=== PATIENT | male | born 1960 | race American Indian/Alaskan Native ===

== ENCOUNTER → 2023-10-08 12:22 | Outpatient (CLI) | payer MEDICARE, OTHER, SELFPAY | PROVIDERS: Visit Provider Physician Assistant | DX: E11.621 Type 2 diabetes mellitus with foot ulcer (principal); L97.509 Non-pressure chronic ulcer of other part of unspecified foot with unspecified severity | CPT/HCPCS: 87070; 87075; 87205 ==

== ENCOUNTER → 2023-10-08 12:38 | Outpatient (CLI) | payer MEDICARE, OTHER, SELFPAY ==
--- NOTE | 2023-10-08 12:42 | DI.RAD.S_ITS ---
PROCEDURE: XR TOE RT MIN 2V INDICATIONS: deep wound to base of great toe TECHNIQUE: 3 views of the 1st toe(s) acquired. COMPARISON: None. FINDINGS: Bones: No fractures or dislocations. No suspicious bony lesions. No bony erosion. Soft tissues: No suspicious soft tissue densities. IMPRESSION: Although no bony erosions are identified, plain film radiography is relatively insensitive in the acute phases of osteomyelitis and may not demonstrate radiographic changes for 15 days. If acute osteomyelitis is of clinical concern, nuclear medicine regional bone scan or MRI is recommended. Dictated by: Mir Tan M.D. on 10/08/2023 at 15:21 Approved by: Mir Tan M.D. on 10/08/2023 at 15:22
[2023-10-08 14:03] LABS: Add Manual Diff / Slide Review NO; Basophils Absolute Auto 0 /uL (0-100); Basophils Percent Auto 0.4 % (0-2); Eosinophils Absolute Auto 0 /uL (0-450); Eosinophils Percent Auto 0.3 % (2-4); Hemoglobin 14.1 g/dL (13.5-17.5); Hemoglobin A1C% w Est Avg Glu 10.9 % (4.0-6.0); Lymphocytes Absolute Auto 2100 /uL (1100-4500); Lymphocytes Percent Auto 17.4 % (25-40); Mean Corpuscular HGB Conc 33.5 % (30-36); Mean Corpuscular Hemoglobin 29.7 PG (26-34); Mean Corpuscular Volume 88.6 fL (80-100); Monocytes Absolute Auto 1000 /uL (0-900); Monocytes Percent Auto 8.4 % (3-14); Neutrophils Absolute Auto 8800 /uL (1500-7000); Neutrophils Percent Auto 73.5 % (50-75); Platelet Count 353 X10^3/uL (150-400); Red Blood Cell Count 4.74 X10^6/uL (4.5-5.9); Red Cell Distribution Width 12.6 % (11.6-14.8)
[2023-10-08 14:23] LABS: Alanine Aminotransferase 30 IU/L (<50); Albumin 4.2 g/dL (3.5-5.0); Albumin Globulin Ratio 1.5 (1.0-2.8); Alkaline Phosphatase 111 U/L (38-126); Aspartate Aminotransferase 24 IU/L (17-59); BUN Creatinine Ratio 47.9 (6-22); Bilirubin Total 0.4 mg/dL (0.2-1.3); Blood Urea Nitrogen 23 mg/dL (9-20); Calcium 9.5 mg/dL (8.4-10.2); Carbon Dioxide 24 mmol/L (22-32); Chloride 104 mmol/L (98-107); Estimated Glomerular Filt Rate > 60 mL/min (>60); Globulin 2.8 g/dL (1.7-4.1); Glucose 313 mg/dL (80-110); HEMOLYSIS < 15 (0-50); Potassium 4.8 mmol/L (3.4-5.1); Sodium 136 mmol/L (137-145)
== END ==
PROVIDERS: Referring Provider Physician Assistant; Visit Provider Physician Assistant
DX: E11.621 Type 2 diabetes mellitus with foot ulcer (principal); L97.509 Non-pressure chronic ulcer of other part of unspecified foot with unspecified severity
CPT/HCPCS: 36415; 73660; 80053; 83036; 85025; 87070; 87075; 87077; 87186; 87205

== ENCOUNTER → 2023-10-16 12:41 | Outpatient (CLI) | payer MEDICARE, OTHER, SELFPAY | PROVIDERS: Referring Provider Physician Assistant; Visit Provider Physician Assistant | DX: E11.621 Type 2 diabetes mellitus with foot ulcer (principal); L97.512 Non-pressure chronic ulcer of other part of right foot with fat layer exposed; L97.522 Non-pressure chronic ulcer of other part of left foot with fat layer exposed; L84 Corns and callosities; R60.0 Localized edema; L53.9 Erythematous condition, unspecified; F17.210 Nicotine dependence, cigarettes, uncomplicated; L08.89 Other specified local infections of the skin and subcutaneous tissue | CPT/HCPCS: 11042; 87070; 87077; 87186; 87205; 99204; 99214 ==

== ENCOUNTER 2023-10-16 15:10 | Inpatient (IN) | payer MEDICARE, OTHER, SELFPAY ==
[2023-10-16 15:12] VITALS: BP 118/83; PULSE 96; RESP 18; TEMP 36.9; O2SAT 94; BMI 26.9
--- NOTE | 2023-10-16 15:28 | ED_ITS ---
HPI - Skin/Abscess/Foreign Bdy <Melida Roberts PA-C - Last Filed: 10/16/23 18:11> General Chief complaint: Skin/Abscess/Foreign Body Stated complaint: feet infected/rt foot open wound Time Seen by Provider: 10/16/23 15:18 Source: patient and other Mode of arrival: Ambulatory Limitations: no limitations History of Present Illness HPI narrative: 63-year-old male presents today referred by the wound care clinic for a worsening right great toe wound. He was seen October 08, 2023 and our walk-in clinic wound culture grew Enterobacter cloaca complex with resistance to Keflex which he was prescribed. He was switched to Bactrim but apparently never started this new medication. Initially the wound was located on the plantar surface of his right great toe, following self removal of a callus by using a knife ?sterilized with a [employer] sales consultant?, he is done wound care with hydrogen peroxide, saltwater and rubbing alcohol. He has a new wound on the medial aspect as well. He is denying any loss of sensation or pain per se. He is denying any fever or changes in overall health, but did endorse some sweats at night. Currently he has no PCP, no glucometer at home and currently residing in a hotel with the help from the hotel sales training representative while his house is being built as part of the [facility] [place]. He is wearing bilateral orthopedic shoes with offloading on the heel. Review of his records reveal labs 10/08/23: white blood cell count of 12.0 with neutrophils 8800. Chemistry was normal with creatinine of 0.48 BUN 23 and his A1c was 10.9. All other systems reviewed and are negative. No known drug allergies. Related Data Home Medications Medication Instructions Recorded Confirmed clonazepam 1 mg tablet 1 mg PO DAILY PRN Anxiety 10/08/23 10/16/23 Allergies Allergy/AdvReac Type Severity Reaction Status Date / Time No Known Drug Allergies Allergy Verified 10/08/23 11:40 Review of Systems <Melida Roberts PA-C - Last Filed: 10/16/23 18:11> Review of Systems Narrative: All other systems reviewed and are negative. Patient History <Melida Roberts PA-C - Last Filed: 10/16/23 18:11> Medical History (Updated 10/16/23 @ 18:49 by Lincoln Maguire DO) Diabetes type 2, uncontrolled Diabetic foot ulcer Social History (Updated 10/16/23 @ 18:49 by Lincoln Maguire DO) household members: none Smoking Status: Current every day smoker alcohol intake: former substance use type: does not use Smoking Status: Current every day smoker Exam <Melida Roberts PA-C - Last Filed: 10/16/23 18:11> Initial Vital Signs Initial Vital Signs: Vital Signs Temperature 98.5 F 10/16/23 15:12 Pulse Rate 96 H 10/16/23 15:12 Respiratory Rate 18 10/16/23 15:12 Blood Pressure 118/83 10/16/23 15:12 Pulse Oximetry 94 10/16/23 15:12 Oxygen Delivery Method Room Air 10/16/23 15:12 Vital signs reviewed and are normal. Const Other: Smiling, seated in the gurney no distress. Eyes Conjunctivae: conjunctivae normal Sclera: sclerae normal Resp Other: Clear to auscultation throughout. Cardio Other: Regular rate and rhythm. Skin Other: Normal color, turgor, temperature except for his foot please see extremity. Extrem Right lower extremity: lower leg Details: erythema, tenderness, localized swelling and warmth; no pitting edema Other: Right great toe has 2 wounds, there is a round approximately 2 cm wound on the plantar aspect no deeper structure seen, relatively dry. Minimal tenderness without guarding. Second wound in the form of a bulla with several other smaller soft blisters on the medial aspect also measuring 2 cm round 1 cm height it is fluid filled, without guarding. Both wounds are reddened, the leg itself is warm not hot to the touch but it is reddened with some edema about the ankle up to the mid lower leg. No pitting. He has no calf tenderness. No popliteal swelling or tenderness. He has full range of motion to the ankle, he is able to move all of his toes. Pulses are present at the DP and PT locations. No inguinal adenopathy. <Dunia Damico DO - Last Filed: 10/17/23 07:37> Initial Vital Signs Initial Vital Signs: Vital Signs Temperature 98.5 F 10/16/23 15:12 Pulse Rate 96 H 10/16/23 15:12 Respiratory Rate 18 10/16/23 15:12 Blood Pressure 118/83 10/16/23 15:12 Pulse Oximetry 94 10/16/23 15:12 Oxygen Delivery Method Room Air 10/16/23 15:12 Course <Melida Roberts PA-C - Last Filed: 10/16/23 18:11> Course Course Narrative: Records reviewed, I spoke with wound care provider who believes this wound tracts to the new bullous lesion. I did not needle it or attempt to drain it, had our attending Dr. Damico examine the patient as well. Consultation with Dr. Neal via Orthopedics who advised inpatient admission at this point for cellulitis and his underlying diabetes, recommends an inpatient MRI and if it does show osteomyelitis he would be more than happy to get involved as the patient would ultimately require bone biopsy. Additional Information: Spoke with Dr. Rios our hospitalist who agreed to admit this patient. Orders Ordered: ED Orders 10/17/23 05:53 Complete Blood Count AUTO DIFF DAILY Comprehensive Metabolic Panel DAILY Magnesium DAILY PTT Partial Thromboplastin Romeo DAILY Prothrombin Time INR DAILY 10/18/23 05:00 Complete Blood Count AUTO DIFF DAILY Comprehensive Metabolic Panel DAILY Magnesium DAILY 10/19/23 05:00 Complete Blood Count AUTO DIFF DAILY Comprehensive Metabolic Panel DAILY Magnesium DAILY Acetaminophen (Acetaminophen 325 Mg Tablet) 650 mg PO Q6H PRN PRN Reason: Fever/Mild Pain (1-3) Hydrocodone Bitart/Acetaminophen (Hydrocodone/Acet 5/325 Tablet) 1 tab PO Q4HR PRN PRN Reason: Pain, Moderate (4-6) Last Admin: 10/17/23 05:54 Dose: 1 tab Documented By: VOLODYMYR Clonazepam (Clonazepam 0.5 Mg Tablet) 1 mg PO DAILY PRN PRN Reason: Anxiety Last Admin: 10/16/23 22:58 Dose: 1 mg Documented By: VOLODYMYR Enoxaparin Sodium (Enoxaparin 40 Mg/0.4 Ml Syringe) 40 mg SUBCUT DAILY [facility] Dextrose (D10w) 100 mls @ 999 mls/hr IV PRN PRN PRN Reason: Hypoglycemia Vancomycin HCl (Vancomycin) 1,250 mg in 250 mls @ 250 mls/hr IV Q8H [facility] Last Infusion: 10/17/23 05:53 Dose: Infused Documented By: Admin: 10/17/23 02:42 Dose: 250 mls/hr Documented By: VOLODYMYR Cefepime HCl 2 gm/ Sodium (Chloride) 100 mls @ 200 mls/hr IV Q12H [facility] Last Infusion: 10/17/23 02:40 Dose: Infused Documented By: Admin: 10/17/23 01:34 Dose: 200 mls/hr Documented By: VOLODYMYR Insulin Glargine (Insulin Glargine 100 Unit/Ml 3ml Pen) 10 unit SUBCUT 2100 [facility] Last Admin: 10/16/23 20:28 Dose: 10 unit Documented By: VOLODYMYR Co-signed By: RC Insulin Human Lispro (Insulin Lispro 100 Unit/Ml 3ml Vial) 0 unit SUBCUT ACHS [facility]; Protocol Last Admin: 10/16/23 20:31 Dose: 3 unit Documented By: VOLODYMYR Co-signed By: RC Naloxone HCl (Naloxone 0.4 Mg/Ml Vial) 0.2 mg IV Q2MIN PRN PRN Reason: Opiate Reversal Ondansetron HCl (Ondansetron 4 Mg Odt) 4 mg PO Q8HR PRN PRN Reason: Nausea And Vomiting Sodium Chloride (Sodium Chloride 0.9% Flush) 10 ml IV BID [facility] Trazodone HCl (Trazodone 50 Mg Tablet) 50 mg PO BEDTIME PRN PRN Reason: insomnia Last Admin: 10/16/23 20:08 Dose: 50 mg Documented By: VOLODYMYR Vancomycin HCl (Vancomycin Trough) 1 request MIS 1830 ONE Stop: 10/17/23 18:31 Vancomycin HCl (Vancomycin Peak) 1 request MIS 0 ONE Stop: 10/17/23 21:31 Discontinued Medications Cefepime HCl 2 gm/ Sodium (Chloride) 100 mls @ 200 mls/hr IV NOW ONE Stop: 10/16/23 15:53 Last Infusion: 10/16/23 17:11 Dose: Infused Documented By: Admin: 10/16/23 16:36 Dose: 200 mls/hr Documented By: SEN Cefepime HCl 2 gm/ Sodium (Chloride) 100 mls @ 200 mls/hr IV Q12H [facility] Vancomycin HCl/Dextrose (Vancomycin) 2,000 mg in 400 mls @ 200 mls/hr IV NOW ONE Stop: 10/16/23 21:14 Last Infusion: 10/17/23 02:41 Dose: Infused Documented By: Admin: 10/16/23 20:08 Dose: 200 mls/hr Documented By: VOLODYMYR Insulin Human Lispro (Insulin Lispro 100 Unit/Ml 3ml Vial) 0 unit SUBCUT NOW ONE; Protocol Stop: 10/17/23 04:16 Last Admin: 10/17/23 04:28 Dose: 3 unit Documented By: VOLODYMYR Co-signed By: RC Vancomycin HCl (Vancomycin Per Pharmacy) 1 request MISC NOW PRN PRN Reason: foot ulcer Reevaluation(s) Reevaluation #1: Resting comfortably, tolerated this 1st course of IV antibiotics. Consultations Consultation #1: Orthopedic consult with Dr. Sonal Neal at 4:50 p.m. recommended inpatient management of his diabetes mellitus and cellulitis with inpatient MRI, if osteomyelitis ultimately bone biopsy would be indicated. Targeted antimicrobial management and wound care. Consultation #2: Hospitalist Dr. Maguire at 1745 hrs. He accepts this patient for hospital admission under observation. Vital Signs Vital signs: Vital Signs - 8 hr 10/16/23 15:12 Temperature 98.5 F Pulse Rate 96 H Respiratory Rate 18 Blood Pressure 118/83 Pulse Oximetry 94 Oxygen Delivery Method Room Air <Dunia Damico DO - Last Filed: 10/17/23 07:37> Orders Ordered: ED Orders 10/17/23 05:53 Complete Blood Count AUTO DIFF DAILY Comprehensive Metabolic Panel DAILY Magnesium DAILY PTT Partial Thromboplastin Romeo DAILY Prothrombin Time INR DAILY 10/18/23 05:00 Complete Blood Count AUTO DIFF DAILY Comprehensive Metabolic Panel DAILY Magnesium DAILY 10/19/23 05:00 Complete Blood Count AUTO DIFF DAILY Comprehensive Metabolic Panel DAILY Magnesium DAILY Acetaminophen (Acetaminophen 325 Mg Tablet) 650 mg PO Q6H PRN PRN Reason: Fever/Mild Pain (1-3) Hydrocodone Bitart/Acetaminophen (Hydrocodone/Acet 5/325 Tablet) 1 tab PO Q4HR PRN PRN Reason: Pain, Moderate (4-6) Last Admin: 10/17/23 05:54 Dose: 1 tab Documented By: VOLODYMYR Clonazepam (Clonazepam 0.5 Mg Tablet) 1 mg PO DAILY PRN PRN Reason: Anxiety Last Admin: 10/16/23 22:58 Dose: 1 mg Documented By: VOLODYMYR Enoxaparin Sodium (Enoxaparin 40 Mg/0.4 Ml Syringe) 40 mg SUBCUT DAILY [facility] Dextrose (D10w) 100 mls @ 999 mls/hr IV PRN PRN PRN Reason: Hypoglycemia Vancomycin HCl (Vancomycin) 1,250 mg in 250 mls @ 250 mls/hr IV Q8H [facility] Last Infusion: 10/17/23 05:53 Dose: Infused Documented By: Admin: 10/17/23 02:42 Dose: 250 mls/hr Documented By: VOLODYMYR Cefepime HCl 2 gm/ Sodium (Chloride) 100 mls @ 200 mls/hr IV Q12H [facility] Last Infusion: 10/17/23 02:40 Dose: Infused Documented By: Admin: 10/17/23 01:34 Dose: 200 mls/hr Documented By: VOLODYMYR Insulin Glargine (Insulin Glargine 100 Unit/Ml 3ml Pen) 10 unit SUBCUT 2100 [facility] Last Admin: 10/16/23 20:28 Dose: 10 unit Documented By: VOLODYMYR Co-signed By: RC Insulin Human Lispro (Insulin Lispro 100 Unit/Ml 3ml Vial) 0 unit SUBCUT ACHS [facility]; Protocol Last Admin: 10/16/23 20:31 Dose: 3 unit Documented By: VOLODYMYR Co-signed By: RC Naloxone HCl (Naloxone 0.4 Mg/Ml Vial) 0.2 mg IV Q2MIN PRN PRN Reason: Opiate Reversal Ondansetron HCl (Ondansetron 4 Mg Odt) 4 mg PO Q8HR PRN PRN Reason: Nausea And Vomiting Sodium Chloride (Sodium Chloride 0.9% Flush) 10 ml IV BID [facility] Trazodone HCl (Trazodone 50 Mg Tablet) 50 mg PO BEDTIME PRN PRN Reason: insomnia Last Admin: 10/16/23 20:08 Dose: 50 mg Documented By: VOLODYMYR Vancomycin HCl (Vancomycin Trough) 1 request MIS 1830 ONE Stop: 10/17/23 18:31 Vancomycin HCl (Vancomycin Peak) 1 request MIS 0 ONE Stop: 10/17/23 21:31 Discontinued Medications Cefepime HCl 2 gm/ Sodium (Chloride) 100 mls @ 200 mls/hr IV NOW ONE Stop: 10/16/23 15:53 Last Infusion: 10/16/23 17:11 Dose: Infused Documented By: Admin: 10/16/23 16:36 Dose: 200 mls/hr Documented By: SEN Cefepime HCl 2 gm/ Sodium (Chloride) 100 mls @ 200 mls/hr IV Q12H [facility] Vancomycin HCl/Dextrose (Vancomycin) 2,000 mg in 400 mls @ 200 mls/hr IV NOW ONE Stop: 10/16/23 21:14 Last Infusion: 10/17/23 02:41 Dose: Infused Documented By: Admin: 10/16/23 20:08 Dose: 200 mls/hr Documented By: VOLODYMYR Insulin Human Lispro (Insulin Lispro 100 Unit/Ml 3ml Vial) 0 unit SUBCUT NOW ONE; Protocol Stop: 10/17/23 04:16 Last Admin: 10/17/23 04:28 Dose: 3 unit Documented By: VOLODYMYR Co-signed By: RC Vancomycin HCl (Vancomycin Per Pharmacy) 1 request MISC NOW PRN PRN Reason: foot ulcer Vital Signs Vital signs: Vital Signs - 8 hr 10/16/23 15:12 Temperature 98.5 F Pulse Rate 96 H Respiratory Rate 18 Blood Pressure 118/83 Pulse Oximetry 94 Oxygen Delivery Method Room Air MDM - Skin/Abscess/Foreign Bdy <Melida Roberts PA-C - Last Filed: 10/16/23 18:11> Medical Records Attestation: I reviewed the patient's medical records. Lab Data Lab results narrative: CBC, CMP, Lactate, ESR, CRP, blood cultures. Previous wound culture dated October 08, 2023 grew Enterobacter cloacae complex showing good sensitivity to cefepime. 10/17/23 05:53 10/17/23 05:53 Labs: Lab Results 10/16/23 Range/Units 15:32 WBC 11.3 H (4.5-11.0) X10^3/uL RBC 4.74 (4.5-5.9) X10^6/uL Hgb 13.9 (13.5-17.5) g/dL Hct 41.0 (41-53) % MCV 86.4 (80-100) fL MCH 29.4 (26-34) PG MCHC 34.0 (30-36) % RDW 12.5 (11.6-14.8) % Plt Count 417 H (150-400) X10^3/uL Neut % (Auto) 72.0 (50-75) % Lymph % (Auto) 17.9 L (25-40) % Grant % (Auto) 8.8 (3-14) % Eos % (Auto) 0.4 L (2-4) % Baso % (Auto) 0.9 (0-2) % Neut # (Auto) 8100 H (9095-1359) /uL Lymph # (Auto) 2000 (8532-7387) /uL Grant # (Auto) 1000 H (0-900) /uL Eos # (Auto) 0 (0-450) /uL Baso # (Auto) 100 (0-100) /uL ESR 56 H (0-15) MM/HR Sodium 136 L (137-145) mmol/L Potassium 4.4 (3.4-5.1) mmol/L Chloride 103 (98-107) mmol/L Carbon Dioxide 28 (22-32) mmol/L BUN 29 H (9-20) mg/dL Creatinine 0.46 L (0.66-1.25) mg/dL Estimated GFR > 60 (>60) mL/min BUN/Creatinine Ratio 63.0 H (6-22) Glucose 357 H (80-110) mg/dL Lactate 0.9 (0.7-2.1) mmol/L Calcium 9.2 (8.4-10.2) mg/dL Total Bilirubin 0.3 (0.2-1.3) mg/dL AST 25 (17-59) IU/L ALT 32 (<50) IU/L Alkaline Phosphatase 133 H (38-126) U/L C-Reactive Protein 6.9 H (<1.0) mg/dL Total Protein 7.4 (6.3-8.2) g/dL Albumin 4.1 (3.5-5.0) g/dL Globulin 3.3 (1.7-4.1) g/dL Albumin/Globulin Ratio 1.2 (1.0-2.8) Imaging Data Extremity x-ray #1: My Impression: Deferred to radiologist reading. Radiologist's Impression: PROCEDURE:??XR?TOE?RT?MIN?2V INDICATIONS:??DM?toe?wound,?r/o?osteo?previous?10/08/23 TECHNIQUE:??3?views?of?the?1st?toe(s)?acquired.?? COMPARISON:[facility],?[facility],?XR?TOE?RT?MIN?2V,?10/08/2023,?13:02. FINDINGS:?? Bones:??No?fractures?or?dislocations.??No?suspicious?bony?lesions.?? Soft?tissues:? ?No?suspicious?soft?tissue?densities.??Inflammatory?changes?noted?over?the?great ?toe?distally IMPRESSION:?? No?acute?bony?abnormality?found?suggestive.??No?foreign?body?seen. D ictated?by:?Silviano?Farhat,?M.D.?on?10/16/2023?at?16:14?Approved?by:?Silviano?Amol warren,?M.D.?on?10/16/2023?at [facility] Narrative Medical decision making narrative: 63-year-old male with type 2 diabetes, poorly controlled however he is afebrile with normal vital signs. Inflammatory changes on x-ray of his right great toe plantar wound as well as a new large bullous type lesion on the medial aspect. White blood cell count of 11.3, inflammatory markers CRP 6.9 ESR is 56 no priors for trending. Normal creatinine. Lactate normal. Treated with 1st dose of cefepime 2 g IV, targeting his antimicrobial therapy to his wound culture dated October 08, 2023 which grew Enterobacter cloacae complex with resistant to several agents. Last A1c was 10.9 10/08/2023, today his glucose was 357. Plan for admission via hospitalist to manage right great toe cellulitis with plantar wound and new bullous lesion, poorly controlled diabetes mellitus. Consult was made with Orthopedics, current radiographs show no definitive osteomyelitis, he would certainly benefit from inpatient MR. Dr. Maguire our hospitalist has accepted this patient for admission under observation. To new wound cultures were obtained by our [place] wound care clinic today, those are both pending. <Dunia Damico, DO - Last Filed: 10/17/23 07:37> Lab Data Labs: Lab Results 10/16/23 Range/Units 15:32 WBC 11.3 H (4.5-11.0) X10^3/uL RBC 4.74 (4.5-5.9) X10^6/uL Hgb 13.9 (13.5-17.5) g/dL Hct 41.0 (41-53) % MCV 86.4 (80-100) fL MCH 29.4 (26-34) PG MCHC 34.0 (30-36) % RDW 12.5 (11.6-14.8) % Plt Count 417 H (150-400) X10^3/uL Neut % (Auto) 72.0 (50-75) % Lymph % (Auto) 17.9 L (25-40) % Grant % (Auto) 8.8 (3-14) % Eos % (Auto) 0.4 L (2-4) % Baso % (Auto) 0.9 (0-2) % Neut # (Auto) 8100 H (7105-7147) /uL Lymph # (Auto) 2000 (6147-5577) /uL Grant # (Auto) 1000 H (0-900) /uL Eos # (Auto) 0 (0-450) /uL Baso # (Auto) 100 (0-100) /uL ESR 56 H (0-15) MM/HR Sodium 136 L (137-145) mmol/L Potassium 4.4 (3.4-5.1) mmol/L Chloride 103 (98-107) mmol/L Carbon Dioxide 28 (22-32) mmol/L BUN 29 H (9-20) mg/dL Creatinine 0.46 L (0.66-1.25) mg/dL Estimated GFR > 60 (>60) mL/min BUN/Creatinine Ratio 63.0 H (6-22) Glucose 357 H (80-110) mg/dL Lactate 0.9 (0.7-2.1) mmol/L Calcium 9.2 (8.4-10.2) mg/dL Total Bilirubin 0.3 (0.2-1.3) mg/dL AST 25 (17-59) IU/L ALT 32 (<50) IU/L Alkaline Phosphatase 133 H (38-126) U/L C-Reactive Protein 6.9 H (<1.0) mg/dL Total Protein 7.4 (6.3-8.2) g/dL Albumin 4.1 (3.5-5.0) g/dL Globulin 3.3 (1.7-4.1) g/dL Albumin/Globulin Ratio 1.2 (1.0-2.8) MDM Narrative Medical decision making narrative: 63-year-old male with type 2 diabetes, poorly controlled however he is afebrile with normal vital signs. Inflammatory changes on x-ray of his right great toe plantar wound as well as a new large bullous type lesion on the medial aspect. White blood cell count of 11.3, inflammatory markers CRP 6.9 ESR is 56 no priors for trending. Normal creatinine. Lactate normal. Treated with 1st dose of cefepime 2 g IV, targeting his antimicrobial therapy to his wound culture dated October 08, 2023 which grew Enterobacter cloacae complex with resistant to several agents. Last A1c was 10.9 10/08/2023, today his glucose was 357. Plan for admission via hospitalist to manage right great toe cellulitis with plantar wound and new bullous lesion, poorly controlled diabetes mellitus. Consult was made with Orthopedics, current radiographs show no definitive osteomyelitis, he would certainly benefit from inpatient MR. Dr. Maguire our hospitalist has accepted this patient for admission under observation. To new wound cultures were obtained by our [place] wound care clinic today, those are both pending. Dr Damico-Amina have seen evaluated patient with FRAN Roberts. Patient is diabetic with worsening right great toe ulcer. He did have a culture 8 days ago it grew Enterobacter resistant to Keflex he was supposed to start antibiotics but did not now has probable abscess. X-ray does not show osteomyelitis. Elevated ESR CRP no fever or significant leukocytosis. May require surgical debridement. RFAN spoke with ortho and hospitalist Discharge Plan Departure Patient Disposition: Admitted as Observation Clinical Impression: Diabetes type 2, uncontrolled Qualifiers: Glycemic state: with hyperglycemia Qualified Code(s): E11.65 - Type 2 diabetes mellitus with hyperglycemia Diabetic foot ulcer Qualifiers: Diabetic foot ulcer location: toe Diabetes mellitus type: type 2 Laterality: r ight Non-pressure ulcer stage: with other severity Qualified Code(s): E11.621 - Type 2 diabetes mellitus with foot ulcer Admit Date/Time: 10/16/23 18:07 Admit Provider: Lincoln Maguire ED Sign-out <Dunia Damico DO - Last Filed: 10/17/23 07:37> Cosign ED Attending Cosadanature Attestation: I was available for consultation.
--- NOTE | 2023-10-16 15:33 | DI.RAD.S_ITS ---
PROCEDURE: XR TOE RT MIN 2V INDICATIONS: DM toe wound, r/o osteo previous 10/08/23 TECHNIQUE: 3 views of the 1st toe(s) acquired. COMPARISON: [facility], , XR TOE RT MIN 2V, 10/08/2023, 13:02. FINDINGS: Bones: No fractures or dislocations. No suspicious bony lesions. Soft tissues: No suspicious soft tissue densities. Inflammatory changes noted over the great toe distally IMPRESSION: No acute bony abnormality found suggestive. No foreign body seen. Dictated by: Silviano Dougherty M.D. on 10/16/2023 at 16:14 Approved by: Silviano Dougherty M.D. on 10/16/2023 at 16:15
[2023-10-16 15:45] LABS: Add Manual Diff / Slide Review NO; Basophils Absolute Auto 100 /uL (0-100); Basophils Percent Auto 0.9 % (0-2); Eosinophils Absolute Auto 0 /uL (0-450); Eosinophils Percent Auto 0.4 % (2-4); Hemoglobin 13.9 g/dL (13.5-17.5); Lymphocytes Absolute Auto 2000 /uL (1100-4500); Lymphocytes Percent Auto 17.9 % (25-40); Mean Corpuscular Hemoglobin 29.4 PG (26-34); Mean Corpuscular Volume 86.4 fL (80-100); Monocytes Absolute Auto 1000 /uL (0-900); Monocytes Percent Auto 8.8 % (3-14); Neutrophils Absolute Auto 8100 /uL (1500-7000); Platelet Count 417 X10^3/uL (150-400); Red Blood Cell Count 4.74 X10^6/uL (4.5-5.9); Red Cell Distribution Width 12.5 % (11.6-14.8); White Blood Cell Count 11.3 X10^3/uL (4.5-11.0)
[2023-10-16 16:00] LABS: Alanine Aminotransferase 32 IU/L (<50); Albumin 4.1 g/dL (3.5-5.0); Albumin Globulin Ratio 1.2 (1.0-2.8); Alkaline Phosphatase 133 U/L (38-126); Aspartate Aminotransferase 25 IU/L (17-59); Bilirubin Total 0.3 mg/dL (0.2-1.3); Blood Urea Nitrogen 29 mg/dL (9-20); Calcium 9.2 mg/dL (8.4-10.2); Carbon Dioxide 28 mmol/L (22-32); Chloride 103 mmol/L (98-107); Estimated Glomerular Filt Rate > 60 mL/min (>60); Globulin 3.3 g/dL (1.7-4.1); Glucose 357 mg/dL (80-110); HEMOLYSIS < 15 (0-50); Lactate (Lactic Acid) 0.9 mmol/L (0.7-2.1); Potassium 4.4 mmol/L (3.4-5.1); Sodium 136 mmol/L (137-145); Total Protein 7.4 g/dL (6.3-8.2)
[2023-10-16 16:04] LABS: C-Reactive Protein Quant 6.9 mg/dL (<1.0)
[2023-10-16 16:16] LABS: Erythrocyte Sedimentation Rate 56 MM/HR (0-15)
[2023-10-16] MEDS: CEFEPIME 2 GM in SODIUM CHLORIDE 0.9% 100 ML IV (16:36)
--- NOTE | 2023-10-16 18:42 | PM.HP.1 ---
History of Present Illness History of Present Illness Chief complaint: feet infected/rt foot open wound Narrative: This is a 63 year old male with PMH of uncontrolled DM, right foot wound sent in by the wound clinic for worsening R foot wound. He was seen 8 days ago for a right foot wound which grew enterobacter resistant to keflex. He completed keflex, was supposed to start bactrim but did not start. He came in today with worsening R foot wound for the past 3 days. Also states he has had recent weight loss of nearly 30 lbs, polyuria and polydipsia. He denies fever, chills, nausea, vomiting. He states he has not slept for more than an hour for the past week, and feels a little out of it due to that. He has no PCP and lives in a hotel. Vitals were unremarkable, XR showed no osteo, discussed with ortho whom recommended MRI and admission for antibiotics. [facility] Medical History (Updated 10/16/23 @ 18:49 by Lincoln Maguire DO) Diabetes type 2, uncontrolled Diabetic foot ulcer Social History (Updated 10/16/23 @ 18:49 by Lincoln Maguire DO) Smoking Status: Current every day smoker alcohol intake: former substance use type: does not use Meds Home Medications and Allergies Home Medications Medication Instructions Recorded Confirmed Type clonazepam 1 mg tablet 1 mg PO DAILY PRN Anxiety 10/08/23 10/16/23 History Allergies Allergy/AdvReac Type Severity Reaction Status Date / Time No Known Drug Allergies Allergy Verified 10/08/23 11:40 Review of Systems Review of Systems Narrative: All other systems reviewed with the patient and are negative unless otherwise stated. Exam Vital Signs (past 8 hours): - 10/16/23 15:12 Temperature 98.5 F Pulse Rate 96 H Respiratory Rate 18 Blood Pressure 118/83 Pulse Oximetry 94 Oxygen Delivery Method Room Air Oxygen Delivery Method Room Air Narrative Exam Narrative: General:? Patient is well developed and well nourished, in no distress at this time. Chest:? Normal AP diameter and contour without kyphoscoliosis, no tachypnea, equal chest rise bilaterally. Lungs:? CTA b/l no wheezing rhonchi or rales. Cardio:?RRR no m/r/g. Musculoskeletal:? Muscle strength and tone are equal within normal limits Extremities: R great toe with erythema from distal tip to mid foot, with edema locally around the area. Plantar aspect of 1st toe with ulcer, minimal purulence but gracia appearing tissue at the base, more medially there is a purulent collection with purulence draining from the area, ordered for culture Neuro:? Alert and orientated x3,? sensation to touch intact in all extremities, no gross deficits noted of cranial nerves. Psych:? Patient has a well-kept appearance, appropriate affect, mental status attitude thought context and judgment are appropriate for age. Objective Labs 10/16/23 15:32 10/16/23 15:32 Labs: Laboratory Results - last 24 hr 10/16/23 15:32 WBC 11.3 H RBC 4.74 Hgb 13.9 Hct 41.0 MCV 86.4 MCH 29.4 MCHC 34.0 RDW 12.5 Plt Count 417 H Neut % (Auto) 72.0 Lymph % (Auto) 17.9 L [place] % (Auto) 8.8 Eos % (Auto) 0.4 L Baso % (Auto) 0.9 Neut # (Auto) 8100 H Lymph # (Auto) 2000 [place] # (Auto) 1000 H Eos # (Auto) 0 Baso # (Auto) 100 ESR 56 H Sodium 136 L Potassium 4.4 Chloride 103 Carbon Dioxide 28 BUN 29 H Creatinine 0.46 L Estimated GFR > 60 BUN/Creatinine Ratio 63.0 H Glucose 357 H Lactate 0.9 Calcium 9.2 Total Bilirubin 0.3 AST 25 ALT 32 Alkaline Phosphatase 133 H C-Reactive Protein 6.9 H Total Protein 7.4 Albumin 4.1 Globulin 3.3 Albumin/Globulin Ratio 1.2 Assessment & Plan Assessment & Plan narrative: 1. R great toe cellulitis and abscess with possible osteomyelitis - failed outpatient therapy with keflex, though previous cultures resistant, did not excelsior picker prescribed bactrim. - continue cefepime and vancomycin here, will repeat R foot culture today. If no evidence of MRSA can stop vanco, previous cultures with enterobacter. - orthopedic sugery consultation pending for possible debridement and surgical management, they told ER recommended MRI. - ESR 56, CRP 6.9. MR ordered to assess extent of fluid collection and evidence of osteomyelitis. 2. Uncontrolled DM - Recent weight loss, polyuria and polydipsia. 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 Dispo: patient admitted under inpatient status. Likely discharge home, will see if fpc antibiotics are needed. Additional history obtained via discussions with the ER provider. These discussions contributed to the creation of the above assessment and plan. I have reviewed patient's presenting documentation, labs, and imaging personally.
[2023-10-16 18:52] VITALS: BMI 26.9
--- NOTE | 2023-10-16 19:14 | DI.MRI.S_ITS ---
PROCEDURE: MR FOOT RT WO/W CON INDICATIONS: r/o osteo R great toe, assess extent of fluid collection TECHNIQUE: Multiphasic, multisequence MRI of the forefoot was performed, before and after intravenous contrast administration. COMPARISON: None. FINDINGS: Image quality: Excellent. Extensive soft tissue edema centralized around the 1st metatarsophalangeal joint. There is a medial ulcer with probable fistula extending from the skin surface to the 1st interphalangeal joint of the great toe with peripherally enhancing tract/abscess measuring 1.1 x 1.1 by 1 centimeter with irregular contours. There is hyperintense T2 signal throughout marrow of the the 1st proximal and distal phalanx in addition to loss of T1 signal most prominent along the metatarsophalangeal joints and extending through both the proximal and distal phalanx of the great toe. There is corresponding hyperenhancement on postcontrast imaging of this marrow. Normal marrow signal throughout the metatarsal. IMPRESSION: Fistulous tract extending from the skin to the 1st interphalangeal joint measuring up to 1.1 centimeters in maximum diameter. Marrow signal changes consistent with osteomyelitis of the 1st proximal and distal phalanx Dictated by: Mick Arceo M.D. on 10/17/2023 at 10:24 Approved by: Mick Arceo M.D. on 10/17/2023 at 10:32
--- NOTE | 2023-10-16 19:37 | PC.NURSE ---
Pt came up to unit around 183 on stretcher. Pt A&Ox4 and able to ambulating independently w/ FWW to BR. Pt not putting too much weight on R foot d/t wound on R great toe. Pt changed into gown and had wallet in pants. Educated pt about the safe at the coordinators office and that we can lock it away for him while he is here and that we will give wallet to him when he discharges. Pt stated that he had gold and thousands of dollars in wallet but didn't trust staff to keep wallet safe. Educated pt again about safe policy and gave his assurance, but pt insisted that he would keep wallet w/ him under pillow.
--- NOTE | 2023-10-16 19:41 | PC.WOUNDPHOT ---
L Great toe Last 3 photos are of R great toe
[2023-10-16 20:00] VITALS: BP 100/79; PULSE 83; RESP 18; TEMP 36.7; O2SAT 96
[2023-10-16] MEDS: TRAZODONE 50 MG TABLET PO (20:08)
[2023-10-16] MEDS: VANCOMYCIN 2,000 MG/400 ML PIGGYBACK 200 MG IV (20:08)
[2023-10-16] MEDS: INSULIN GLARGINE 100 UNIT/ML 3ML PEN 10 UNIT SUBCUT (20:28)
[2023-10-16] MEDS: INSULIN LISPRO 100 UNIT/ML 3ML VIAL SUBCUT (20:31)
[2023-10-16 22:03] VITALS: O2SAT 96
[2023-10-16] MEDS: clonazePAM 0.5 MG TABLET 1 MG PO (22:58)
[2023-10-17] VITALS (9 sets, daily range): BP systolic 99–111; BP diastolic 60–75; PULSE 69–82; RESP 16–18; TEMP 36.1–36.4; O2SAT 93–99
[2023-10-17] MEDS: CEFEPIME 2 GM in SODIUM CHLORIDE 0.9% 100 ML IV ×2 (01:34→14:18)
[2023-10-17] MEDS: VANCOMYCIN 1,250 MG/250 ML PIGGYBACK 250 MG IV ×3 (02:42→19:37)
[2023-10-17] MEDS: INSULIN LISPRO 100 UNIT/ML 3ML VIAL SUBCUT ×5 (04:28→19:43)
--- NOTE | 2023-10-17 04:47 | PC.NURSE ---
Blood sugar 302 @ 04:00. Received an order for a 1 x dose of Lispro per sliding scale and then continue ACHS checks.
[2023-10-17 05:21] LABS: Urine Amphetamines Negative (Negative); Urine Barbiturates Negative (Negative); Urine Benzodiazepines Negative (Negative); Urine Cocaine Negative (Negative); Urine MDMA Negative (Negative); Urine Methadone Negative (Negative); Urine Methamphetamines Negative (Negative); Urine Opiates Negative (Negative); Urine Oxycodone Negative (Negative); Urine Phencyclidine Negative (Negative); Urine THC Positive (Negative); Urine Tricyclic Antidepressant Negative (Negative)
[2023-10-17] MEDS: HYDROCODONE/ACET 5/325 TABLET 1 TAB PO ×3 (05:54→20:54)
[2023-10-17 06:06] LABS: Add Manual Diff / Slide Review NO; Basophils Absolute Auto 100 /uL (0-100); Basophils Percent Auto 0.5 % (0-2); Eosinophils Absolute Auto 100 /uL (0-450); Eosinophils Percent Auto 0.9 % (2-4); Hematocrit 38.2 % (41-53); Hemoglobin 12.9 g/dL (13.5-17.5); Lymphocytes Absolute Auto 2100 /uL (1100-4500); Lymphocytes Percent Auto 21.4 % (25-40); Mean Corpuscular HGB Conc 33.8 % (30-36); Mean Corpuscular Hemoglobin 29.4 PG (26-34); Mean Corpuscular Volume 86.8 fL (80-100); Monocytes Absolute Auto 800 /uL (0-900); Monocytes Percent Auto 8.1 % (3-14); Neutrophils Absolute Auto 6700 /uL (1500-7000); Neutrophils Percent Auto 69.1 % (50-75); Platelet Count 408 X10^3/uL (150-400); Red Cell Distribution Width 12.4 % (11.6-14.8); White Blood Cell Count 9.7 X10^3/uL (4.5-11.0)
[2023-10-17 06:23] LABS: INR 1.1 (0.9-1.3); Prothrombin Time 12.9 SECONDS (9.4-12.5)
[2023-10-17 06:26] LABS: PTT Partial Thromboplastin Tim 31 SECONDS (25.1-36.5)
[2023-10-17 06:29] LABS: Hemoglobin A1C% w Est Avg Glu 11.1 % (4.0-6.0)
[2023-10-17 06:30] LABS: Alanine Aminotransferase 26 IU/L (<50); Albumin 3.6 g/dL (3.5-5.0); Albumin Globulin Ratio 1.2 (1.0-2.8); Alkaline Phosphatase 82 U/L (38-126); Aspartate Aminotransferase 25 IU/L (17-59); Bilirubin Total 0.5 mg/dL (0.2-1.3); Blood Urea Nitrogen 17 mg/dL (9-20); Calcium 8.4 mg/dL (8.4-10.2); Carbon Dioxide 29 mmol/L (22-32); Chloride 103 mmol/L (98-107); Estimated Glomerular Filt Rate > 60 mL/min (>60); Globulin 2.9 g/dL (1.7-4.1); Glucose 271 mg/dL (80-110); HEMOLYSIS 26 (0-50); Magnesium 2.1 mg/dL (1.6-2.3); Potassium 3.9 mmol/L (3.4-5.1); Sodium 135 mmol/L (137-145); Total Protein 6.5 g/dL (6.3-8.2)
[2023-10-17] MEDS: SODIUM CHLORIDE 0.9% FLUSH 10 ML IV ×2 (08:42→19:38)
[2023-10-17] MEDS: ENOXAPARIN 40 MG/0.4 ML SYRINGE SUBCUT (08:42)
[2023-10-17] MEDS: clonazePAM 0.5 MG TABLET 1 MG PO (09:55)
--- NOTE | 2023-10-17 10:55 | CM.DANOTE ---
Initial DCP Assessment Visit Note Reviewed EMR and team rounds for status updates. Went to go meet with pt at bedside, however he was being taken to DI for an MRI. Dr. Neal will be consulting once the MRI results are back for possible I&D. Pt lives alone independently in a hotel, and will transport himself back once he's medically cleared for d/c, which is likely later today or tomorrow. Payor: Medicare Attending: Dr. Maguire/Dr. Neal PCP-none Pt is a 63 year-old M with a PMH of diabetes and chronic lower extremity wounds. He was referred to the ED from the [facility] for a worsening open wound on his R-great toe. He had removed a callous on it with a knife several days before, and it became increasingly more infected, now dx with cellulitis. He was started on IV ABO's in the ED, then brought to the floor in OBS for an MRI and Ortho consultation. He did share that he hasn't slept more than an hour in a week, due to pain, however he does present with symptoms condusive to tomas. He has been pleasant with staff, but agitated. DCP will continue to follow and assist with any final d/c needs and recommendations. Discharge Planning/Care Management CM Discharge Assessment Start: 10/17/23 10:53 Freq: Status: Active Protocol: Document 10/17/23 10:53 DPL (Rec: 10/17/23 10:54 DPL [id number]) Discharge Planning Assessment Assigned Conservation Worker PARAM Menard Advance Directives? No History Provided By Medical Record Expected Length of Stay 2 Has Patient been admitted in last 30 No days? Prior Living Arrangements Other Comment HOTEL Household Members none Type of transporation used prior to Drives own vehicle admit Independent with ADL's Yes Is patient alert and oriented? Yes Community Services used prior to Wound Care admission: Comment Continued OP Wound Care Clinic Barriers to Discharge No Discharge Plan Home Community Services Wound Care Referrals Initiated None needed Whiteboard Updated in Patient Room with No name and ext. # of Conservation Worker Review Status In Process Please Provide Date Initial DC 10/17/23 Assessment Was Performed
--- NOTE | 2023-10-17 13:25 | PM.PN.1 ---
Subjective Subjective Interval history: Patient reports he has not slept much in the past week. He is ambulating well throughout the hospital with a walker, not much pain at all. He has been MRI today showed fistulous tract to the 1st interphalangeal joint from the skin on the Right foot and evidence of osteomyelitis. Discussed with orthopedics, formal recommendations and surgical planning are pending at this time. Exam Vital Signs (past 8 hours): - 10/17/23 06:00 10/17/23 08:00 10/17/23 10:00 Temperature 97.5 F L Pulse Rate 79 Respiratory Rate 16 Blood Pressure 111/64 Pulse Oximetry 93 98 98 Oxygen Delivery Method Room Air Room Air Oxygen Flow Rate 0 Oxygen Delivery Method Room Air Oxygen Flow Rate 0 Narrative Exam Narrative: General:? Patient is well developed and well nourished, in no distress at this time. Chest:? Normal AP diameter and contour without kyphoscoliosis, no tachypnea, equal chest rise bilaterally. Lungs:? CTA b/l no wheezing rhonchi or rales. Cardio:?RRR no m/r/g. Musculoskeletal:? Muscle strength and tone are equal within normal limits Extremities: R great toe with erythema from distal tip to mid foot, with edema locally around the area. Plantar aspect of 1st toe with ulcer, minimal purulence but gracia appearing tissue at the base, more medially there is a purulent collection with purulence draining from the area (see wound photo in the chart) Neuro:? Alert and orientated x3,? sensation to touch intact in all extremities, no gross deficits noted of cranial nerves. Psych:? Patient has a well-kept appearance, appropriate affect, mental status attitude thought context and judgment are appropriate for age. Objective Labs 10/17/23 05:53 10/17/23 05:53 Labs: Laboratory Results - last 24 hr 10/16/23 10/17/23 10/17/23 15:32 05:00 05:53 WBC 11.3 H 9.7 RBC 4.74 4.40 L Hgb 13.9 12.9 L Hct 41.0 38.2 L MCV 86.4 86.8 MCH 29.4 29.4 MCHC 34.0 33.8 RDW 12.5 12.4 Plt Count 417 H 408 H Neut % (Auto) 72.0 69.1 Lymph % (Auto) 17.9 L 21.4 L [place] % (Auto) 8.8 8.1 Eos % (Auto) 0.4 L 0.9 L Baso % (Auto) 0.9 0.5 Neut # (Auto) 8100 H 6700 Lymph # (Auto) 2000 2100 [place] # (Auto) 1000 H 800 Eos # (Auto) 0 100 Baso # (Auto) 100 100 ESR 56 H PT 12.9 H INR 1.1 APTT 31 Sodium 136 L 135 L Potassium 4.4 3.9 Chloride 103 103 Carbon Dioxide 28 29 BUN 29 H 17 Creatinine 0.46 L 0.46 L Estimated GFR > 60 > 60 BUN/Creatinine Ratio 63.0 H 37.0 H Glucose 357 H 271 H Hemoglobin A1c 11.1 H Lactate 0.9 Calcium 9.2 8.4 Magnesium 2.1 Total Bilirubin 0.3 0.5 AST 25 25 ALT 32 26 Alkaline Phosphatase 133 H 82 D C-Reactive Protein 6.9 H Total Protein 7.4 6.5 Albumin 4.1 3.6 Globulin 3.3 2.9 Albumin/Globulin Ratio 1.2 1.2 U Opiates 300ng/mL cut Negative Ur Oxycodone Screen Negative Urine Methadone Screen Negative Ur Barbiturates Screen Negative U Tricyclic Antidepress Negative Ur Phencyclidine Scrn Negative Ur Amphetamines Screen Negative U Methamphetamines Scrn Negative Ur MDMA Scrn (Ecstasy) Negative U Benzodiazepines Scrn Negative Urine Cocaine Screen Negative U Marijuana (THC) Screen Positive H Urine pH TNP Urine Specific [place] TNP Ur Creatinine TNP PFSH Medical History (Updated 10/16/23 @ 18:49 by Lincoln Maguire DO) Diabetes type 2, uncontrolled Diabetic foot ulcer Social History (Updated 10/16/23 @ 18:49 by Lincoln Maguire DO) household members: none Smoking Status: Current every day smoker alcohol intake: former substance use type: does not use Assessment & Plan Assessment & Plan narrative: 1. R great toe cellulitis and abscess with osteomyelitis and infected R 1st interphalangeal joint. - failed outpatient therapy with keflex, though previous cultures resistant, did not olive picker prescribed bactrim. - continue cefepime and vancomycin here, repeat superficial culture pending. If no evidence of MRSA can stop vanco, previous cultures with enterobacter. - orthopedic sugery consultation for surgical management. Discussed with orthopedic provider today after MRI showed osteomyelitis and a fistulous tract from the skin to interphalangeal joint. - ESR 56, CRP 6.9 on admit. - improve glucose control as noted below. 2. Uncontrolled DM - Recent weight loss, polyuria and polydipsia. Glucose >300 on presentation - started lantus 10 units. medium sliding scale and continue to adjust. Will increase to 20 units tonight as AM glucose is 271 this morning. - flight engineer inspector consult - A1c 11.1% 3. Suspected bipolar disorder, restlessness - patient reports being awake for nearly a week, has some grandiose ideas related to money, etc suspicious for bipolar disroder with tomas - consider mood stabilizer, for insomnia trial seroquel tonight which may help. Consider psych consultation when available, though he does not seem to be currently a risk to harm himself or others at this time. - for agitation or aggression can give 5 mg of haldol. 4. Tobacco use - nicotine patch ordered as patient has been frequently requesting to smoke in his room or outside. Code: Full, surrogate is patient's spouse DVT: Lovenox daily I have utilized all available immediate resources to obtain, update, or review the patient's current medications. Dispo: patient admitted under inpatient status. 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 Additional history obtained via discussions with the ER provider. These discussions contributed to the creation of the above assessment and plan. I have reviewed patient's presenting documentation, labs, and imaging personally. Quality VTE Deep Vein Thrombosis/Pulmonary Embolism Present on Admission: No
--- NOTE | 2023-10-17 16:10 | P.CONS_ITS ---
History of Present Illness Consult details Date Patient Seen: 10/17/23 Time Patient Seen: 16:10 Chief complaint: feet infected/rt foot open wound Reason for consult: infection of right big toe Requesting provider: Dunia Damico Narrative: Mr. Brand is here for chronic right big toe wound being treated in the wound care clinic. He is not sure how long the wound has been there but it is at least several months. He reported worsening wound with increased pain over the last couple of weeks. He went to walk-in clinic had culture down showed Enterobacter cloacae that is resistent to keflex, which was what patient initially was prescribed. He presented to the ER and orthopedic service was contacted. I recommended admission to medicine for IV antibiotics treatment, obtaining MRI for assessment of soft tissue abscess and/or bony involvement of infection with osteomyelitis. Orthopedic service was consulted for additional recommendation after MRI was performed. Meds Home Medications and Allergies Home Medications Medication Instructions Recorded Confirmed Type clonazepam 1 mg tablet 1 mg PO DAILY PRN Anxiety 10/08/23 10/16/23 History Allergies Allergy/AdvReac Type Severity Reaction Status Date / Time No Known Drug Allergies Allergy Verified 10/08/23 11:40 Review of Systems Review of Systems ROS: Yes All systems reviewed with the patient and are negative except as otherwise documented Exam Vital Signs (past 8 hours): - 10/17/23 10:00 10/17/23 14:00 Pulse Oximetry 98 98 Oxygen Delivery Method Room Air Room Air Oxygen Flow Rate 0 0 Oxygen Delivery Method Room Air Oxygen Flow Rate 0 Extrem Other: RLE: Right big toe with medial and plantar wound. There is soft tissue swelling and enlargement of the right big toe. There is calus on plantar and medial aspect of right big toe. There is decreased sensibility to all toes on exam. He is able to flex and extend all toes with decreased ROM to right big toe due to soft tissue swelling. I was able to express 0.5 cc of purulent material from the medial wound, not from plantar wound. Decreased capillary refill to all toes. Pulses palpable at PT and DP bilaterally. LLE: There is a plantar wound on the left big toe. No erythema, no drainage, no induration. Objective Imaging MRI R Foot:: Radiologist's impression: MRI R foot: E xtensive?soft?tissue?edema?centralized?around?the?1st?metatarsophalangeal?joint. ??There?is?a?medial? ulcer?with?probable?fistula?extending?from?the?skin?surface?to?the?1st?interphal angeal?joint?of?the? great?toe?with?peripherally?enhancing?tract/abscess?measuring?1.1?x?1.1?by?1?dorian timeter?with?irregul ar?contours.??There?is?hyperintense?T2?signal?throughout?marrow?of?the?the?1st?p roximal?and?distal?p halanx?in?addition?to?loss?of?T1?signal?most?prominent?along?the?metatarsophalan geal?joints?and?exte nding?through?both?the?proximal?and?distal?phalanx?of?the?great?toe.?There?is?co rresponding?hyperenh ancement?on?postcontrast?imaging?of?this?marrow.?Normal?marrow?signal?throughout ?the?metatarsal. IMPRESSION:?? F istulous?tract?extending?from?the?skin?to?the?1st?interphalangeal?joint?measurin g?up?to?1.1?centimeters?in?maximum?diameter. M arrow?signal?changes?consistent?with?osteomyelitis?of?the?1st?proximal?and?dista l?phalanx Labs 10/17/23 05:53 10/17/23 05:53 Labs: Laboratory Results - last 24 hr 10/16/23 10/17/23 10/17/23 15:32 05:00 05:53 WBC 9.7 RBC 4.40 L Hgb 12.9 L Hct 38.2 L MCV 86.8 MCH 29.4 MCHC 33.8 RDW 12.4 Plt Count 408 H Neut % (Auto) 69.1 Lymph % (Auto) 21.4 L [place] % (Auto) 8.1 Eos % (Auto) 0.9 L Baso % (Auto) 0.5 Neut # (Auto) 6700 Lymph # (Auto) 2100 [place] # (Auto) 800 Eos # (Auto) 100 Baso # (Auto) 100 ESR 56 H PT 12.9 H INR 1.1 APTT 31 Sodium 135 L Potassium 3.9 Chloride 103 Carbon Dioxide 29 BUN 17 Creatinine 0.46 L Estimated GFR > 60 BUN/Creatinine Ratio 37.0 H Glucose 271 H Hemoglobin A1c 11.1 H Calcium 8.4 Magnesium 2.1 Total Bilirubin 0.5 AST 25 ALT 26 Alkaline Phosphatase 82 D Total Protein 6.5 Albumin 3.6 Globulin 2.9 Albumin/Globulin Ratio 1.2 U Opiates 300ng/mL cut Negative Ur Oxycodone Screen Negative Urine Methadone Screen Negative Ur Barbiturates Screen Negative U Tricyclic Antidepress Negative Ur Phencyclidine Scrn Negative Ur Amphetamines Screen Negative U Methamphetamines Scrn Negative Ur MDMA Scrn (Ecstasy) Negative U Benzodiazepines Scrn Negative Urine Cocaine Screen Negative U Marijuana (THC) Screen Positive H Urine pH TNP Urine Specific [place] TNP Ur Creatinine TNP [facility] Medical History Diabetes type 2, uncontrolled Diabetic foot ulcer Social History household members: none Tobacco & Substance Use Smoking Status: Current every day smoker alcohol intake: former substance use type: does not use Assessment & Plan Assessment & Plan narrative: Patient has chronic right first toe ulcer treated in wound clinic. There is worsening appearance of her right big toe with purulent drainage started more than 10 days ago. Patient was placed on oral antibiotic and his toe has not improved. MRI shows open wound connecting to the right 1st MTP joint with osteomyelitis of right 1st PP and DP. There is also a fluid collection concerning for abscess in the soft tissue of 1x1x1 cm. I discussed my findings with the patient. I discussed treatment options specifically surgical debridement of soft tissue and bone and the MTP joint. Risks for surgery include but not limited to bleeding, infection, nerve/bloood vessel/tendon/ligament injury, 1st MTP instability, possible worsening infection and loss of the toe due to need for amputation. I discussed with him the root of the issue is his poorly controlled DM. I instructed him to work on improving his diabetic control along with other parts of his general health management. Patient understands and agrees to proceed with surgery. Patient is very concerned about losing his toe. I informed him amputation is the last reserve for treating his infection. I plan to do an clean up involving debridement only at this time. He is scheduled for right big toe I&D of skin, muscle and bone for tomorrow AM.
[2023-10-17 19:13] LABS: Vancomycin Trough 10.9 ug/mL (10-20)
[2023-10-17] MEDS: VANCOMYCIN TROUGH 1 REQUEST MISC (19:32)
--- NOTE | 2023-10-17 19:37 | PC.NURSE ---
@ 0945 pt was continuously asking staff if he could go have a smoke outside. Pt kept begging staff and trying to bribe staff to walk him to his car. This RN told pt multiple times that [facility] has a no smoking policy and that we will not be taking him outside. This RN also tried to educate pt about smoking cessation and offered a nicotine patch instead, as well as the option to leave AMA and offered to print out a form. Pt was yelling at RN and this RN continued to decline pt's request to go outside to smoke and walked out of pt's room. (Other staff and even nearby pts could hear pt yelling/complaining). @ 1100 Ortho PA consulted with pt about R great toe and MRI results. After discussion with pt, PA expressed safety concern with this RN that pt was complaining about how he was so angry he couldn't go outside and that he was saying lewd, violent and inappropriate things about this RN d/t frustration. PA expressed her concern for this RN's safety when doing care for pt, and she suggested to go into pt's room with someone, or to have a male RN perform care tasks. This RN thanked her for concern and safety measure suggestions, and told bridge expert, as well and PHP WORDPRESS DEVELOPER, float RN and other RN at [place] nurse's station. All staff was in agreement and helped with safety concerns. This RN went to speak with hospitalist about pt's behavior and staff safety concern. changed trazadone order to seroquel at bedtime, and gave verbal PRN 5 mg IM of haldol if pt becomes violent. @ 1630 Ortho surgeon consulted with pt about plan for I+D tomorrow. Pt was anxious and kept asking MD questions. MD was writing notes and desk and pt kept coming to MD asking questions and coming out of room without shoes on that MD told pt to not walk the halls without shoes d/t infection in toe and to ambulate the halls in moderation. After MD left, pt came out to nurse's station and asked this RN what time his sx was scheduled tomorrow. This RN read MD's note and asked, but there wasn't a specific time schedule yet and that we would let him know. Pt kept asking and asking the same question about the specific time and was phyically coming closer and closer to this RN's face. This RN told him to get out of my face and to head back to his room, and that we would let him know a time when we found out. Pt got agitated and was yelling profanities back to his room. @ 1900 pt was interrupting CNAs, who were getting report at shift change, to complain about not being able to go outside to smoke. Pt stating what kind of [place] are we living in? and I just want to go outside to my car, what's the big deal? This RN told pt to stop complaining about not being able to smoke a cigarette, and that if he really needed to leave to smoke, this RN can print out an AMA form and he can leave. Pt started to yell loudly at RN, in front of CNAs. This RN said I'm not doing this and walked away immediately while pt was yelling. Pt then started to charge after this RN and yelled that he was going to beat her ass. This RN went straight to the front end manager to call security. FLAME CHANNELER called security and charge RNs, who were in the middle of report, were notified. Pt was continuing to yell in paez and more staff came to tell pt to go to room and to calm down. Security arrived promptly and stood at the door while the situation was deescalated. rivet spinner informed staff that if pt was aggressive again, to call police and to go into pt's room with at least two people. This RN notified MD that pt was aggressive and added haldol IM order to MAR for rn shift mgr.
[2023-10-17] MEDS: INSULIN GLARGINE 100 UNIT/ML 3ML PEN 20 UNIT SUBCUT (19:38)
[2023-10-17] MEDS: QUETIAPINE 25 MG TABLET PO (20:08)
[2023-10-17] MEDS: HALOPERIDOL 5 MG/ML VIAL IV (21:22)
[2023-10-18] VITALS (14 sets, daily range): BP systolic 100–120; BP diastolic 70–87; PULSE 56–99; RESP 16–18; TEMP 36.1–36.8; O2SAT 96–99; BMI 26.9
[2023-10-18] MEDS: VANCOMYCIN PEAK 1 REQUEST MISC (00:35)
[2023-10-18] MEDS: CEFEPIME 2 GM in SODIUM CHLORIDE 0.9% 100 ML IV ×2 (01:34→14:30)
[2023-10-18] MEDS: VANCOMYCIN 1,250 MG/250 ML PIGGYBACK 250 MG IV ×2 (02:46→18:44)
[2023-10-18 06:36] LABS: Add Manual Diff / Slide Review NO; Basophils Absolute Auto 100 /uL (0-100); Basophils Percent Auto 0.8 % (0-2); Eosinophils Absolute Auto 100 /uL (0-450); Eosinophils Percent Auto 0.7 % (2-4); Hematocrit 40.4 % (41-53); Hemoglobin 13.5 g/dL (13.5-17.5); Lymphocytes Absolute Auto 2000 /uL (1100-4500); Lymphocytes Percent Auto 22.9 % (25-40); Mean Corpuscular HGB Conc 33.4 % (30-36); Mean Corpuscular Volume 86.8 fL (80-100); Monocytes Absolute Auto 800 /uL (0-900); Monocytes Percent Auto 9.1 % (3-14); Neutrophils Absolute Auto 6000 /uL (1500-7000); Neutrophils Percent Auto 66.5 % (50-75); Platelet Count 405 X10^3/uL (150-400); Red Blood Cell Count 4.65 X10^6/uL (4.5-5.9); Red Cell Distribution Width 12.5 % (11.6-14.8)
[2023-10-18 06:47] LABS: Alanine Aminotransferase 24 IU/L (<50); Albumin 3.6 g/dL (3.5-5.0); Albumin Globulin Ratio 1.3 (1.0-2.8); Alkaline Phosphatase 79 U/L (38-126); Aspartate Aminotransferase 20 IU/L (17-59); BUN Creatinine Ratio 31.4 (6-22); Bilirubin Total 0.5 mg/dL (0.2-1.3); Blood Urea Nitrogen 16 mg/dL (9-20); Calcium 8.8 mg/dL (8.4-10.2); Carbon Dioxide 26 mmol/L (22-32); Chloride 107 mmol/L (98-107); Estimated Glomerular Filt Rate > 60 mL/min (>60); Globulin 2.8 g/dL (1.7-4.1); Glucose 266 mg/dL (80-110); HEMOLYSIS < 15 (0-50); Sodium 138 mmol/L (137-145); Total Protein 6.4 g/dL (6.3-8.2)
[2023-10-18] MEDS: INSULIN LISPRO 100 UNIT/ML 3ML VIAL SUBCUT ×4 (08:25→21:30)
[2023-10-18] MEDS: INSULIN GLARGINE 100 UNIT/ML 3ML PEN 10 UNIT SUBCUT (08:26)
--- NOTE | 2023-10-18 09:55 | PC.NURSE ---
Addendum entered by Zohra Johnson R.N. 10/18/23 18:14: Picc RN placed a 4F Picc line to r.upper basilic vein. Inserted 43cm, 3cm out. Addendum entered by Zohra Johnson R.N. 10/18/23 13:56: Patient back from surgery, he has been given 2 oxycodone for pain and he ate lunch. Blood sugar 256 and insulin given. Original Note: Patient has been cooperative and respectful this morning. He ambulates in the halls frequently and enjoys talking to staff. He just went down to surgery for his r.big toe ulcer to get it debrided and cleaned out. Patients blood sugar this morning 266 and 276. Insulins given this morning. Patients wallet and alvarado, with his watch, rings, and other personal belongings locked up in the safe. Patient signed the paperwork prior to going down to surgery and this RN witnessed. He has a dressing to his r.foot and wears special shoes to walk.
--- NOTE | 2023-10-18 10:37 | P.OP_ITS ---
Operative Date/Time/Diagnoses Date of procedure: 10/18/23 Time of procedure: 10:45 Pre-op diagnosis: 1. right first toe infection involving skin, muscle and bone 2. 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 Right first toe irrigation and debridement of skin, muscle and bone 2. Right first interphalangeal joint irrigation and debridement Same procedure as scheduled: Yes Indications: Mr. Brand has at least 1 month history of right first toe ulcer after self debridement with a knife. Patient described he was able to express pus after he cut his skin open with the knife. His wound has been worsening since his self administered draining of his toe infection. He went to walk in clinic 12 days ago and was given oral antibiotics and his wound was cultured. He was also referred to wound clinic for assisting with his wound care. His wound continue to worsen and he returned to ER after being instructed by wound care clinic. MRI was performed on admission showing fluid collection consistent with abscess and possible tracking to 1st MTP joint. Surgeon: Severino Parsons Yes if Unassisted: Yes Anesthesia Type: General Operative Notes Closure Type: primary Prosthetic devices, grafts, tissues, transplants, or devices: First toe wound culture, tissue culture Estimated Blood Loss (mL): 1 Blood products transfused: none Tourniquet time (min): 24 Procedure in detail: After risks and benefits of the surgery was discussed, informed consent was obtained and was placed into the chart. Surgical site was marked. Patient was taken to the OR. General anesthesia was administered. Time out was performed. Patient was placed into supine position. Tourniquet was placed on the right upper thigh. Patient's right leg was prepped from tips of his toes up to the tourniquet. Patient's right leg was prepped and draped in the sterile fashion. Patient's right leg was elevated for 1 minute and tourniquet was inflated to 250 mm mercury. Fifteen blade scalpel was used to debride the skin. Patient's right 1st toe was found to be entirely encapsulated in hard callus circumferentially. Combination of small scissors and Leksell rongeur was used to remove the callus from the toe. There was purulent material was able to be expressed from the wound proximally 1 cc. The medial and plantar wound is connected. The wound was examined after debridement was performed using the Leksell rongeur to remove the callus and unhealthy appearing necrotic tissue around the edges of the ulcer both medial and plantar. There was significant soft tissue damage due to the infection involving both the tendons and ligaments as well as joint capsules around the interphalangeal joint. Necrotic skin muscle and bone tissue was removed with a bony rongeur to debride the area of unhealthy appearing tissue in order to facilitate treating his infection. The distal phalanx and proximal phalanx both had significant bone loss due to the osteomyelitis. Wound culture was taken at this time. Small bony rongeur was used to remove the distal phalanx and part of the middle phalanx until healthy-appearing bone and soft tissue was visualized. On healthy appearing soft tissue including the skin subcutaneous tissue, muscle and bone was removed until healthy tissue was identified. The wound was again explored proximally. There is no connection or tract to the metaphyseal phalangeal joint. The unhealthy necrotic tissue on the plantar aspect was debrided during the irrigation and debridement. The wound was copiously irrigated with sterile normal saline at this time. There was no exposed bone tendon or ligaments after the debridement and irrigation was completed. 2-0 nylon suture was used to loosely approximate the wound in interrupted fashi on to allow additional drainage and to limit surface area of exposed tissue. The wound was then covered with Xeroform sterile 4 x 4 gauze, cling and Jeffrey bandage. Tourniquet was deflated at this time. There is no significant bleeding after the tourniquet was deflated. His capillary refill to the toes are unchanged after deflating the tourniquet. The toes returned to pinkish color with sluggish capillary refill. Dorsalis pedis pulse is palpable after the tourniquet was deflated. Patient was woken up from anesthesia and transferred to recovery room in stable condition. Patient will continue IV antibiotics. Medicine service is managing patient's antibiotics will need to consult ID for additional recommendation for his osteomyelitis. Patient can weight bear as tolerated in a postop shoe to his right lower extremity. Will consult wound care to help manage patient's wound post op. Complications: none Post-operative Condition: stable Disposition: Acute Care Plan for aftercare: Admit to medicine service for medical management
[2023-10-18] MEDS: LACTATED RINGERS 1,000 ML 42 ML IV (11:10)
--- NOTE | 2023-10-18 11:15 | SUR.OPER ---
Supine on padded OR bed, head on pillow, arms secured on padded arm boards at <90 degrees abduction, legs uncrossed, safety belt at thigh, tape over blanket over lower legs.
--- NOTE | 2023-10-18 11:38 | P.PN_ITS ---
Subjective Subjective Interval history: He is ambulating well throughout the hospital with a walker, not much pain at all. Plan for I&D with orthopedics, depending on operative findings and management likely will need coordination of outpatient antibiotics. Exam Vital Signs (past 8 hours): - 10/18/23 06:00 10/18/23 08:00 10/18/23 10:00 Temperature 97.1 F L Pulse Rate 73 Respiratory Rate 16 Blood Pressure 100/78 Pulse Oximetry 98 99 Oxygen Delivery Method Room Air Room Air 10/18/23 10:00 Temperature 98.2 F Pulse Rate 94 H Respiratory Rate 16 Blood Pressure 114/87 Pulse Oximetry 98 Oxygen Delivery Method Room Air Oxygen Delivery Method Room Air Oxygen Flow Rate 0 Narrative Exam Narrative: General:? Patient is well developed and well nourished, in no distress at this time. Chest:? Normal AP diameter and contour without kyphoscoliosis, no tachypnea, equal chest rise bilaterally. Lungs:? CTA b/l no wheezing rhonchi or rales. Cardio:?RRR no m/r/g. Musculoskeletal:? Muscle strength and tone are equal within normal limits Neuro:? Alert and orientated x3,? sensation to touch intact in all extremities, no gross deficits noted of cranial nerves. Psych:? Patient has a well-kept appearance, appropriate affect, mental status attitude thought context and judgment are appropriate for age. Objective Labs 10/18/23 06:29 10/18/23 06:29 Labs: Laboratory Results - last 24 hr 10/17/23 10/17/23 10/18/23 18:33 21:44 06:29 WBC 9.0 RBC 4.65 Hgb 13.5 Hct 40.4 L MCV 86.8 MCH 29.0 MCHC 33.4 RDW 12.5 Plt Count 405 H Neut % (Auto) 66.5 Lymph % (Auto) 22.9 L Lewis % (Auto) 9.1 Eos % (Auto) 0.7 L Baso % (Auto) 0.8 Neut # (Auto) 6000 Lymph # (Auto) 2000 Lewis # (Auto) 800 Eos # (Auto) 100 Baso # (Auto) 100 Sodium 138 Potassium 4.0 Chloride 107 Carbon Dioxide 26 BUN 16 Creatinine 0.51 L Estimated GFR > 60 BUN/Creatinine Ratio 31.4 H Glucose 266 H Calcium 8.8 Magnesium 2.0 Total Bilirubin 0.5 AST 20 ALT 24 Alkaline Phosphatase 79 Total Protein 6.4 Albumin 3.6 Globulin 2.8 Albumin/Globulin Ratio 1.3 Vancomycin Peak 22.0 Vancomycin Trough 10.9 [facility] Medical History Diabetes type 2, uncontrolled Diabetic foot ulcer Social History (Updated 10/16/23 @ 18:49 by Lincoln Maguire DO) household members: none Smoking Status: Current every day smoker alcohol intake: former substance use type: does not use Assessment & Plan Assessment & Plan narrative: 1. R great toe cellulitis and abscess with osteomyelitis and infected R 1st interphalangeal joint. - failed outpatient therapy with keflex, though previous cultures resistant, did not pickling tank operator prescribed bactrim. - continue cefepime and vancomycin here, repeat superficial culture pending. If no evidence of MRSA can stop vanco, previous cultures with enterobacter. - orthopedic sugery consultation for surgical management. Discussed with orthopedic provider today after MRI showed osteomyelitis and a fistulous tract from the skin to interphalangeal joint. - ESR 56, CRP 6.9 on admit. - improve glucose control as noted below. 2. Uncontrolled DM - Recent weight loss, polyuria and polydipsia. Glucose >300 on presentation - started lantus 10 units at night initially. medium sliding scale and continue to adjust. Increased further today to 10 U in AM and 20 U in PM. Glucose did improve overnight, but day glucose high yesterday. Consider meal time dosing next. - educational assistant teacher consult - A1c 11.1% 3. Suspected bipolar disorder, restlessness - patient reports being awake for nearly a week, has some grandiose ideas related to money, etc suspicious for bipolar disroder with tomas - consider mood stabilizer, for insomnia trialed seroquel tonight which seemed to help slightly. Consider psych consultation when available, though he does not seem to be currently a risk to harm himself or others at this time. - for agitation or aggression can give 5 mg of haldol. 4. Tobacco use - nicotine patch ordered as patient has been frequently requesting to smoke in his room or outside. Code: Full, surrogate is patient's spouse DVT: Lovenox daily I have utilized all available immediate resources to obtain, update, or review the patient's current medications. Dispo: patient admitted under inpatient status. Likely discharge home, will likely need 6 weeks of IV antibiotics unless amputation performed. Additional history obtained via discussions with the ER provider. These discussions contributed to the creation of the above assessment and plan. I have reviewed patient's presenting documentation, labs, and imaging personally. Quality VTE Deep Vein Thrombosis/Pulmonary Embolism Present on Admission: No
--- NOTE | 2023-10-18 11:43 | CM.DPC ---
DCP IV-Abx Planning Per MD, MRI confirmed osteomyelitis to pt's toe and per Ortho plan is I&D today in the OR and then pt likely will need about 6 weeks of IV-Abx at discharge but still awaiting cultures to determine frequency and which IV-Abx to determine discharge options. Pt has Medicare and would not have coverage for home infusion but could have coverage at SNF or if once a day then could have coverage for outpt infusion. Pt is a smoker at baseline and had some difficulty yesterday with not getting to go outside to smoke but seems cooperative and appropriate today per RN and BARREL ENDSHAKER ADJUSTER. SW attempted to meet bedside with pt but he is off the floor in OR for I&D currently. PARAM Faulkner
[2023-10-18] MEDS: OXYCODONE IR 5 MG TABLET PO ×2 (12:11→12:49)
[2023-10-18] MEDS: ENOXAPARIN 40 MG/0.4 ML SYRINGE SUBCUT (13:19)
[2023-10-18] MEDS: VANCOMYCIN 1,000 MG/200 ML PIGGYBACK 200 MG IV (13:19)
--- NOTE | 2023-10-18 14:16 | PT-IP ANOTE ---
Physical Therapy order received and chart reviewed. Pt underwent I&D of his foot earlier today. Will hold evaluation until tomorrow. Pt was up ambulating independently before surgery. Surgeon orders are WBAT with post-op shoe.
[2023-10-18] MEDS: OXYCODONE IR 10 MG TABLET PO ×3 (15:20→21:26)
--- NOTE | 2023-10-18 18:08 | DI.RAD.S_ITS ---
PROCEDURE: XR CHEST 1V INDICATIONS: picc line placement TECHNIQUE: One view of the chest was acquired. COMPARISON: None. FINDINGS: Surgical changes and devices: Right PICC line with tip in the superior vena cava. Surgical anchors within the right shoulder. Lungs and pleura: Lungs are clear. No pleural effusions or pneumothorax. Mediastinum: Mediastinal contours appear normal. Heart size is normal. Bones and chest wall: No suspicious bony lesions. Overlying soft tissues appear unremarkable. IMPRESSION: Tip of the PICC lies within the superior vena cava. Dictated by: Mick Arceo M.D. on 10/18/2023 at 17:46 Approved by: Mick Arceo M.D. on 10/18/2023 at 17:48
[2023-10-18] MEDS: DOCUSATE 100 MG CAPSULE PO (21:26)
[2023-10-18] MEDS: INSULIN GLARGINE 100 UNIT/ML 3ML PEN 20 UNIT SUBCUT (21:30)
[2023-10-19] VITALS (8 sets, daily range): BP systolic 103–122; BP diastolic 72–80; PULSE 77–89; RESP 16–19; TEMP 36.2–36.6; O2SAT 96–99
[2023-10-19] MEDS: OXYCODONE IR 10 MG TABLET PO ×7 (01:01→23:58)
[2023-10-19] MEDS: CEFEPIME 2 GM in SODIUM CHLORIDE 0.9% 100 ML IV ×2 (01:01→14:24)
[2023-10-19] MEDS: VANCOMYCIN 1,250 MG/250 ML PIGGYBACK 250 MG IV ×3 (02:05→18:10)
[2023-10-19 05:54] LABS: Add Manual Diff / Slide Review NO; Basophils Absolute Auto 0 /uL (0-100); Basophils Percent Auto 0.2 % (0-2); Eosinophils Absolute Auto 0 /uL (0-450); Eosinophils Percent Auto 0.3 % (2-4); Hematocrit 38.6 % (41-53); Hemoglobin 13.2 g/dL (13.5-17.5); Lymphocytes Absolute Auto 2400 /uL (1100-4500); Lymphocytes Percent Auto 20.3 % (25-40); Mean Corpuscular HGB Conc 34.1 % (30-36); Mean Corpuscular Hemoglobin 29.2 PG (26-34); Mean Corpuscular Volume 85.6 fL (80-100); Monocytes Absolute Auto 1100 /uL (0-900); Monocytes Percent Auto 8.9 % (3-14); Neutrophils Absolute Auto 8400 /uL (1500-7000); Neutrophils Percent Auto 70.3 % (50-75); Platelet Count 395 X10^3/uL (150-400); Red Blood Cell Count 4.51 X10^6/uL (4.5-5.9); Red Cell Distribution Width 12.6 % (11.6-14.8)
[2023-10-19 06:04] LABS: Alanine Aminotransferase 25 IU/L (<50); Albumin 3.8 g/dL (3.5-5.0); Albumin Globulin Ratio 1.3 (1.0-2.8); Alkaline Phosphatase 78 U/L (38-126); Aspartate Aminotransferase 22 IU/L (17-59); BUN Creatinine Ratio 30.4 (6-22); Bilirubin Total 0.5 mg/dL (0.2-1.3); Blood Urea Nitrogen 14 mg/dL (9-20); Calcium 8.8 mg/dL (8.4-10.2); Carbon Dioxide 25 mmol/L (22-32); Chloride 107 mmol/L (98-107); Estimated Glomerular Filt Rate > 60 mL/min (>60); Glucose 171 mg/dL (80-110); HEMOLYSIS < 15 (0-50); Magnesium 1.9 mg/dL (1.6-2.3); Potassium 3.5 mmol/L (3.4-5.1); Sodium 137 mmol/L (137-145); Total Protein 6.8 g/dL (6.3-8.2)
--- NOTE | 2023-10-19 06:45 | PT.IIE ---
Surgery Performed Operation Date: 10/18/23 11:15 Actual Procedures p Incision and Drainage Wound/Extremity WITH CULTURES - Severino Neal MD Medical History (Last Reviewed 10/17/23 @ 16:19 by Severino Neal MD) Diabetes type 2, uncontrolled Diabetic foot ulcer Physical Therapy Inpatient Evaluation/Re-Eval M1 PT/OT-IP Prior Functional Status Start: 10/19/23 08:23 Freq: NEEDED Status: Active Protocol: Document 10/19/23 09:45 AW (Rec: 10/19/23 10:23 AW [id number]) Medical Review Prior Functional Status Medical History Reviewed Yes Communication WNL Mobility and Gait Independent Activities of Daily Living and IADL's Independent Prior Functional Level (Other details) Independent in all regards. Uses no DME. Drives. Social History Household Members none Living Arrangements Other Number of Floors (Floors) One Floor Number of Stairs To Enter/Railing? Level entrance Home Environment Standard Height Toilet,Tub/ Shower Home Equipment Grab Bars In Shower Employment Status Unemployed Additional Social History Comment Pt has been living in hotels. Currently staying at a hotel in [place]. States his mother will arrive this week to help him out as able. M2 PT-IP Current Condition Start: 10/19/23 08:23 Freq: NEEDED Status: Active Protocol: Document 10/19/23 09:45 AW (Rec: 10/19/23 10:23 AW [id number]) Physical Therapy Current Condition Current Condition Evaluation Date 10/19/23 Treatment Diagnosis R great toe osteomyelitis s/p I&D Onset Date 10/12/23 M3 PT-IP Subjective Start: 10/19/23 08:23 Freq: NEEDED Status: Active Protocol: Document 10/19/23 09:45 AW (Rec: 10/19/23 10:23 AW [id number]) Subjective Physical Therapy Visit Type Type Initial Evaluation Visit Start Time 09:25 Visit Stop Time 09:45 Physical Therapy Visit Comments Patient Comments Pt is walking around without shoes on. Open to education. Willing to work with PT. Patient Goals Pt would like to keep his toe and ultimately his foot. Therapy Pain Assessment Pain When Pain Assessed During Mobility Pain Present Pain Present Denied Pain M4 PT-IP Mobility and Gait Start: 10/19/23 08:23 Freq: NEEDED Status: Active Protocol: Document 10/19/23 09:45 AW (Rec: 10/19/23 10:23 AW [id number]) PT-Bed Mobility Assessment Supine to Sit Supine to Sit Independent Sit to Supine Sit to Supine Independent PT-Transfer Assessment Sit to and From Stand Sit to and from Stand Independent Equipment Transfer Assistive Device None Orthotic/Prosthetic Devices or Brace: Yes Transfers Transfer Destination Bed,Chair Transfer Technique ambulates Transfer Ability Level of Assist Independent Comments Mobility Comments Pt dons post op shoes with some assist from PT. Education provided on donning/doffing and the importance of keeping his foot off the floor. All transfers and gait are performed using post op shoes (bilateral) independently. Gait Assessment Gait Gait Assistance Required: Independent Distance (Feet) 250 Able to Maintain Weight Bearing Status Yes During Gait Assistive Devices Assistive Device None,Gait Belt Orthotic/Prosthetic Devices or Brace: Yes Gait Deviations General Gait Pattern Within Normal Limits Stair Climbing Assessment Evaluation Level of Assist On Stairs Independent Devices Stair Climbing Assistive Devices Right Railing Technique/Endurance Stair Climbing Direction Ascend and Descend Stair Climbing Technique Step Over Step Number of Steps Climbed 3 Query Text: Stair Climbing Set # Repetitions (reps) 2 PT-Balance Assessment Sitting Balance and Reactions Static Sitting Balance Ability Normal Dynamic Sitting Balance Ability Normal Standing Balance and Reactions Static Standing Balance Ability Normal Dynamic Standing Balance Ability Normal Functional Assessments Other Functional Tests Performed 4-item DGI: 04/12 (single point deducted for change in speed) M5 PT-IP Objective Assessments Start: 10/19/23 08:23 Freq: NEEDED Status: Active Protocol: Document 10/19/23 09:45 AW (Rec: 10/19/23 10:23 AW [id number]) Orientation Orientation/Cognition Level of Alertness Alert Orientation Name,Day of Week,Place, Situation Language Function Ability No Deficits Noted Safety Awareness Decreased Safety Awareness Comments Benefits from education on the importance of keeping wound clean. Gross Range of Motion Upper Extremity ROM Assessment Within Functional Limits Lower Extremity ROM Assessment Within Functional Limits Strength Upper Extremity Strength Assessment Within Functional Limits Lower Extremity Strength Assessment Within Functional Limits Comments Strength Comments Right ankle NT Sensation Assessment Sensation Gross Sensation Right LE Impaired,Left LE Impaired Light Touch Absent Sensation Description Numbness Comments Sensation Comments Bilateral toes, plantar feet, and dorsal feet. M6 PT-IP Treatment Start: 10/19/23 08:23 Freq: NEEDED Status: Active Protocol: Document 10/19/23 09:45 AW (Rec: 10/19/23 10:23 AW [id number]) Physical Therapy Treatment Education Education Provided Safety Equipment Issued Equipment Type and Company Pt has two post op shoes in the room. Other Treatments Other Treatment Performed Eduacation on the importance of maintaining clean feet, using post op shoes, and managing diabetes for wound healing. M7 PT-IP Assessment and Plan Start: 10/19/23 08:23 Freq: NEEDED Status: Active Protocol: Document 10/19/23 09:45 AW (Rec: 10/19/23 10:23 AW [id number]) PT Summary Assessment and Plan Summary Assessment Summary Spenser Brand is a 63 yo man admitted with right great toe wound, osteomyelitis. He is POD1 s/p I&D. Per orders, he is to maintain WBAT in post op shoe. Pt lives in a hotel currently. His mother will arrive soon to assist as able. Pt is transferring and ambulating independently without assistive device. He benefits from ongoing education about the importance of keeping his wounds clean and managing his diabetes for best wound healing. No acute PT needs identified. PT recommends return to prior living situation. Frequency of Treatment Frequency Of Treatment Discharge Precautions Other Precautions WBAT RLE in post op shoe Weight Bearing Status Weight Bearing Status Weight Bear as Tolerated Recommendations To Nursing Amount of Assist Needed Independent Discharge Recommendations PT Discharge Recommendations Home,Home with Assistance Transportation Needs at Discharge Private Vehicle
--- NOTE | 2023-10-19 07:25 | PM.PN.1 ---
Subjective Subjective Interval history: Patient notes improved pain in his R great toe today after OR debridement yesterday. Still awaiting OR cultures and continues on cefepime. Vanco stopped. Exam Vital Signs (past 8 hours): - 10/19/23 00:00 10/19/23 02:13 10/19/23 06:19 Temperature 97.8 F 97.2 F L Pulse Rate 88 89 Respiratory Rate 19 17 Blood Pressure 103/73 118/72 Pulse Oximetry 98 98 96 Oxygen Delivery Method Room Air Oxygen Flow Rate 0 0 0 10/19/23 06:24 Temperature Pulse Rate Respiratory Rate Blood Pressure Pulse Oximetry 96 Oxygen Delivery Method Room Air Oxygen Flow Rate 0 Oxygen Delivery Method Room Air Oxygen Flow Rate 0 Narrative Exam Narrative: General:? Patient is well developed and well nourished, in no distress at this time. Chest:? Normal AP diameter and contour without kyphoscoliosis, no tachypnea, equal chest rise bilaterally. Lungs:? CTA b/l no wheezing rhonchi or rales. Cardio:?RRR no m/r/g. Musculoskeletal:? Muscle strength and tone are equal within normal limits Neuro:? Alert and orientated x3,? sensation to touch intact in all extremities, no gross deficits noted of cranial nerves. Psych:? Patient has a well-kept appearance, appropriate affect, mental status attitude thought context and judgment are appropriate for age. Objective Labs 10/19/23 05:18 10/19/23 05:18 Labs: Laboratory Results - last 24 hr 10/19/23 05:18 WBC 12.0 H RBC 4.51 Hgb 13.2 L Hct 38.6 L MCV 85.6 MCH 29.2 MCHC 34.1 RDW 12.6 Plt Count 395 Neut % (Auto) 70.3 Lymph % (Auto) 20.3 L [place] % (Auto) 8.9 Eos % (Auto) 0.3 L Baso % (Auto) 0.2 Neut # (Auto) 8400 H Lymph # (Auto) 2400 [place] # (Auto) 1100 H Eos # (Auto) 0 Baso # (Auto) 0 Sodium 137 Potassium 3.5 Chloride 107 Carbon Dioxide 25 BUN 14 Creatinine 0.46 L Estimated GFR > 60 BUN/Creatinine Ratio 30.4 H Glucose 171 H Calcium 8.8 Magnesium 1.9 Total Bilirubin 0.5 AST 22 ALT 25 Alkaline Phosphatase 78 Total Protein 6.8 Albumin 3.8 Globulin 3.0 Albumin/Globulin Ratio 1.3 [facility] Medical History Diabetes type 2, uncontrolled Diabetic foot ulcer Social History (Updated 10/16/23 @ 18:49 by Lincoln Maguire DO) household members: none Smoking Status: Current every day smoker alcohol intake: former substance use type: does not use Assessment & Plan Assessment & Plan narrative: 1. R great toe cellulitis and abscess with osteomyelitis and infected R 1st interphalangeal joint, due to diabetic neuropathy - failed outpatient therapy with keflex, though previous cultures resistant, did not molded goods spot picker prescribed bactrim. - continue cefepime, repeat superficial culture with enterobacter, and previous cultures also with enterobacter. Check MRSA swab then can stop vanc likely. - orthopedic surgery consultation for surgical management. Discussed with orthopedic provider after MRI showed osteomyelitis and a fistulous tract from the skin to interphalangeal joint. - underwent OR debridement on 10/17, with operative cultures pending - ESR 56, CRP 6.9 on admit. - improve glucose control as noted below. 2. Uncontrolled DM, new diagnosis - Recent weight loss, polyuria and polydipsia. Glucose >300 on presentation - started lantus 20u BID - electric sign wirer consult - A1c 11.1% 3. Suspected bipolar disorder, restlessness - patient reports being awake for nearly a week, has some grandiose ideas related to money, etc suspicious for bipolar disorder with tomas - consider mood stabilizer and psych consultation when available, though he does not seem to be currently a risk to harm himself or others at this time. - for agitation or aggression can give 5 mg of haldol. - start lamictal 25mg daily and seroqeul 25mg nightly for insomnia 4. Tobacco use - nicotine patch ordered as patient has been frequently requesting to smoke in his room or outside. Code: Full, surrogate is patient's spouse DVT: Lovenox daily I have utilized all available immediate resources to obtain, update, or review the patient's current medications. Dispo: patient admitted under inpatient status. Likely discharge home, will need 6 weeks of IV antibiotics. Quality VTE Deep Vein Thrombosis/Pulmonary Embolism Present on Admission: No
--- NOTE | 2023-10-19 07:58 | PC.NURSE ---
Addendum entered by Zohra Johnson R.N. 10/19/23 13:54: Patients R.great toe dressing changed with iodoplex and Kurlex. Post op shoe on both feet. He tolerated this well and was just medicated with Oxycodone. Original Note: Patient is alert and oriented x4, he did not sleep last night and has been on his music, talking to himself, and keeping himself entertained in his room. Dressing to his r.foot is cdi. We have explained to patient that he should not put pressure on his r.foot until seen by PT and we know what is WB is. Patient does not listen. Getting oxycodone for pain and this is helpful. Blood sugar 171, insulin given.
[2023-10-19] MEDS: INSULIN GLARGINE 100 UNIT/ML 3ML PEN 20 UNIT SUBCUT ×2 (08:08→21:05)
[2023-10-19] MEDS: INSULIN LISPRO 100 UNIT/ML 3ML VIAL SUBCUT ×4 (08:09→21:04)
[2023-10-19] MEDS: ENOXAPARIN 40 MG/0.4 ML SYRINGE SUBCUT (08:10)
[2023-10-19] MEDS: DOCUSATE 100 MG CAPSULE PO ×2 (08:10→21:02)
[2023-10-19] MEDS: ACETAMINOPHEN 325 MG TABLET 650 MG PO (08:10)
[2023-10-19] MEDS: lamoTRIgine 100 MG TABLET 25 MG PO (10:14)
[2023-10-19] MEDS: POTASSIUM CHLORIDE 20 MEQ TAB 40 MEQ PO (11:37)
[2023-10-19 11:55] LABS: MRSA (Nasal) PCR NOT DETECTED (Not Detect)
--- NOTE | 2023-10-19 12:48 | DIET.CONS ---
Dietary Consultation Note Admission Date: 10/16/2023 18:07 Assessment: 63 y M admitted for worsening open wound on toe. PMH of diabetes and chronic lower extremity wounds. Nutrition consulted r/t diabetes. Met with pt at bedside. Reports feeling off for past 6 months, like a fish out of water. Reports excessive nighttime sweating, polydipsia, not thinking as clearly, increased hunger, and blurred vision to me. Is generally active. He is surprised about his diagnosis of diabetes and reports feelings of anxiety and stress regarding his health, but is willing to work towards better glycemic control r/t to fear blindness and amputation. Reports he is moving to new house/apt in a few weeks. Feels he has lost muscle mass/weight. Diet recall: Last 2 months reports only drinking 1 gallon of whole milk r/t to craving. Before these last 2 months, he has 1 large meal per day (i.e hamburgers). Nutrition focused physical exam results: Muscle wasting: moderate loss in temporalis, no other significant finding (assessed clavicle region and interosseous) Subcutaneous fat loss: moderate loss in buccal and orbital fat pads, no significant findings in triceps. Ht: 177.8 cm Wt: 85.275 kg BMI: 26.9 UBW: 97.7 kg per pt 6 months (-12.7% weight loss in 6 months, severe) Last BM: 10/17/23 (10/18/23 10:00) MNA: 14 Chapin Score: 20 Diet: 10/18/23 Dinner Carbohydrate Consistent Diet Diet Modifications: Carbohydrate level: Medium (3 CHO) Reflex DM orders: No Food Texture: Level 7 - Regular Liquid Consistency: Level 0 - Thin Nutrition Percent Meal Consumed 100% 10/19/23 11:22 Percent Meal Consumed 100% 10/18/23 17:00 Percent Meal Consumed 100% 10/18/23 14:40 Percent Meal Consumed 100% 10/17/23 18:00 Labs: RBC 4.51 X10^6/uL (4.5-5.9) 10/19/23 05:18 Hgb 13.2 g/dL (13.5-17.5) L 10/19/23 05:18 Hct 38.6 % (41-53) L 10/19/23 05:18 Creatinine 0.46 mg/dL (0.66-1.25) L 10/19/23 05:18 Hemoglobin A1c 11.1 % (4.0-6.0) H 10/17/23 05:53 Lactate 0.9 mmol/L (0.7-2.1) 10/16/23 15:32 Nutrition Diagnosis: Moderate acute protein calorie malnutrition r/t endocrine dysfunction as evidenced by 12% weight loss in 6 months, severe, moderate muscle wasting (temporalis), moderate subcutaneous fat loss (buccal and orbital fat pads), A1c 11% The patient is at much higher risk for medical and surgical complications because of their malnutrition. This increases the difficulty and complexity of medical and surgical interventions and increases the chances of poor outcomes such as morbidity and mortality. Interventions: 1. Provided MNT for diabetes -overview w/ educ on macros and 3 smaller meals/day 2. Provided outpatient senior health educator information Monitoring/Evaluations: BG, f/u prn Electronically Signed by: Roxanne Burr 10/19/23 12:48 Clinical Dietitian [address] [address]
--- NOTE | 2023-10-19 12:49 | PM.CN ---
History of Present Illness Consult details Date Patient Seen: 10/19/23 Time Patient Seen: 12:00 Chief complaint: feet infected/rt foot open wound Narrative: The patient is a 63-year-old male with a history of uncontrolled diabetes who was admitted to the hospital Oct 16 2023 with a diabetic foot infection involving the right great toe. MRI showed evidence for an abscess of the right 1st IP joint as well as osteomyelitis of the proximal and distal phalanx of the right great toe. He was brought to the operating room for I&D of the right great toe by orthopedic surgery on October 18, 2023. Cultures obtained at time of surgery R groin Gram-positive Castaneda I and Gram-negative rods. The patient reports that his pain has improved since surgery. He is currently receiving IV antibiotic therapy. The patient denies ever having had any similar problems in the past. He is a current cigarette smoker but is planning to stop. The patient had previously been seen as an outpatient and treated with a course of Keflex then switch to Bactrim however he never got the prescription filled. Previous culture from October 08, 2023 grew Enterobacter cloacae. Meds Home Medications and Allergies Home Medications Medication Instructions Recorded Confirmed Type clonazepam 1 mg tablet 1 mg PO DAILY PRN Anxiety 10/08/23 10/16/23 History Allergies Allergy/AdvReac Type Severity Reaction Status Date / Time No Known Drug Allergies Allergy Verified 10/08/23 11:40 Review of Systems Constitutional Comments: The patient denies having any other recent changes in his overall health Cardiovascular Comments: No chest pain Respiratory Comments: No shortness of breath Exam Vital Signs (past 8 hours): - 10/19/23 06:19 10/19/23 06:24 10/19/23 12:00 Temperature 97.2 F L 97.9 F Pulse Rate 89 77 Respiratory Rate 17 18 Blood Pressure 118/72 106/73 Pulse Oximetry 96 96 99 Oxygen Delivery Method Room Air Oxygen Flow Rate 0 0 0 Oxygen Delivery Method Room Air Oxygen Flow Rate 0 Narrative Exam Narrative: Well-developed well-nourished male alert and oriented no apparent distress Skin Other: Mild erythema right great toe with loosely closed incision extending from the dorsal to the medial aspect of the toe over the IP joint Neuro Other: Decreased lower extremity sensation Extrem Other: Mild swelling right great toe Objective Labs 10/19/23 05:18 10/19/23 05:18 Labs: Laboratory Results - last 24 hr 10/19/23 10/19/23 05:18 10:25 WBC 12.0 H RBC 4.51 Hgb 13.2 L Hct 38.6 L MCV 85.6 MCH 29.2 MCHC 34.1 RDW 12.6 Plt Count 395 Neut % (Auto) 70.3 Lymph % (Auto) 20.3 L [place] % (Auto) 8.9 Eos % (Auto) 0.3 L Baso % (Auto) 0.2 Neut # (Auto) 8400 H Lymph # (Auto) 2400 [place] # (Auto) 1100 H Eos # (Auto) 0 Baso # (Auto) 0 Sodium 137 Potassium 3.5 Chloride 107 Carbon Dioxide 25 BUN 14 Creatinine 0.46 L Estimated GFR > 60 BUN/Creatinine Ratio 30.4 H Glucose 171 H Calcium 8.8 Magnesium 1.9 Total Bilirubin 0.5 AST 22 ALT 25 Alkaline Phosphatase 78 Total Protein 6.8 Albumin 3.8 Globulin 3.0 Albumin/Globulin Ratio 1.3 Nasal Screen MRSA (PCR) Not detected [facility] Medical History Diabetes type 2, uncontrolled Diabetic foot ulcer Social History household members: none Tobacco & Substance Use Smoking Status: Current every day smoker alcohol intake: former substance use type: does not use Assessment & Plan Assessment and plan (1) Diabetic foot ulcer: Qualifiers: Diabetic foot ulcer location: toe Diabetes mellitus type: type 2 Laterality: right Non-pressure ulcer stage: with other severity Qualified Code(s): E11.621 - Type 2 diabetes mellitus with foot ulcer; L97.518 - Non-pressure chronic ulcer of other part of right foot with other specified severity Status: Acute (2) Other acute osteomyelitis, right ankle and foot: Status: Acute (3) Type 2 diabetes mellitus with diabetic polyneuropathy: Status: Acute Plan Start dressing changes with Iodoflex, postop surgical shoe for pressure offloading, order arterial Doppler to assess arterial circulation, continue IV antibiotic therapy and adjust based on culture results. Follow up at wound center after discharge. Time Spent With Patient Time with patient: 30 to 49 minutes with 50% spent counseling/coordinating care
--- NOTE | 2023-10-19 12:55 | DI.US.S_ITS ---
PROCEDURE: US ARTERIAL DUPLEX LE RT INDICATIONS: Diabetic foot ulcer, osteomyelitis TECHNIQUE: Color and pulse Doppler interrogation was performed of the right lower extremity arterial system, with image documentation. COMPARISON: None. FINDINGS: Common femoral artery: 83 cm/sec, with triphasic flow. Deep femoral artery: 78 cm/sec, with triphasic flow. Proximal superficial femoral artery: 134 cm/sec, with triphasic flow. Mid superficial femoral artery: 124 cm/sec, with triphasic flow. Distal superficial femoral artery: 72 cm/sec, with triphasic flow. Popliteal artery: 119 cm/sec, with triphasic flow. Posterior tibial artery: 75 cm/sec, with triphasic flow. Anterior tibial artery/dorsalis pedis: 90 cm/sec, with triphasic flow. Chau-scale imaging description: Scattered atherosclerotic plaque. Ectasia of the distal SFA measuring 1.6 cm. Right groin prominent lymph node measuring 0.9 cm in short axis. IMPRESSION: 1. Right lower extremity arterial vasculature demonstrates multiphasic waveforms with no velocity shift to suggest a hemodynamically significant stenosis. 2. Focal ectasia of the distal superficial femoral artery measuring 1.6 cm with mural plaque/thrombus. Dictated by: Alvino Strickland M.D. on 10/19/2023 at 14:41 Approved by: Alvino Strickland M.D. on 10/19/2023 at 14:47
--- NOTE | 2023-10-19 15:12 | CM.DPNOTE ---
DCP Note RIBBON SWEATBAND OPERATOR reviewed EMR. Per hospitalist in morning multidisciplinary rounds, cultures pending but anticipate ertapenem 1g Q24, Dr. Fletcher to follow. Pt already has PICC line. Per PT, mobilizing well. Rec home with assistance. RIBBON SWEATBAND OPERATOR met with pt in room and introduced self and role. Pt reports preference is to return to [facility] [place] and come to the clinic daily for IV abx at this time and f/u with OP wound clinic. Previously has worked with OP wound clinic. Pt reports his mother is coming to stay with him for a bit to assist him. Reports he is able to drive self to clinic daily. Wishes to establish with PCP here- RIBBON SWEATBAND OPERATOR provided him with PCP new appt card, pt plans to establish care after dc from here. RIBBON SWEATBAND OPERATOR spoke with Lauren from OP infusion clinic- report all she would need for referral at this time is order with dose/frequency/stop date. RIBBON SWEATBAND OPERATOR lvm with wound clinic to inquire if any new information was needed for pt to continue to see them in the OP setting. Plan: abx plan pending cultures. Anticipate dc tomorrow home with mom to [facility]. f/u daily for 6 weeks with OP inf clinic and OP wound clinic as needed. will schedule SOC with new PCP here. CM team will continue to follow closely. PARAM Goldstein
[2023-10-19] MEDS: metroNIDAZOLE 500 MG TABLET PO ×2 (15:48→21:01)
--- NOTE | 2023-10-19 19:20 | P.PN_ITS ---
Subjective Subjective Interval history: Spenser is a 63 year old male who underwent an I&D of his right 1st toe by Dr. Neal on 10/18/23. He has a history of uncontrolled diabetes, he was admitted to the hospital Oct 16 2023 with a diabetic foot infection involving the right 1st toe after patient used a heated butter knife to drain the pus from the toe himself in his hotel room. He failed outpatient Keflex Rx by PCP, he was then Rx Bactrim but admits to not picking up this Rx. MRI was obtained upon admission which showed evidence for an abscess of the right 1st IP joint as well as osteomyelitis of the proximal and distal phalanx of the right great toe. He was brought to the operating room on October 18, 2023 where cultures were obtained and an I&D was performed of the right 1st toe. Final operative cultures still pending. He is currently getting cefepime and vanco IV. Was consulted by wound care today. Today patient reports his pain is significantly improved s/p I&D. Social Hx: Has been living in a hotel, he is having a home built on the [facility] in 3-6 weeks and plans to continue living in the hotel until then. Does not have any immediate family in the nearby area although his mother is coming to visit patient today. Denies fever, chills, chest pain, vomiting. Exam Vital Signs (past 8 hours): - 10/19/23 12:00 10/19/23 18:00 Temperature 97.9 F 97.8 F Pulse Rate 77 82 Respiratory Rate 18 18 Blood Pressure 106/73 122/80 Pulse Oximetry 99 98 Oxygen Flow Rate 0 0 Oxygen Delivery Method Room Air Oxygen Flow Rate 0 Narrative Exam Narrative: Sitting up in bed during our visit today, no acute distress. Resp Effort & Inspection: normal respiratory effort and able to speak in complete sentences Cardio Rate: regular rate Skin Other: Moderate right 5th toe swelling and erythema. Post-surgical dressing intact, moderate brownish discharge lateral right 1st toe. Decreased sensation in bilateral toes. Psych Speech and Movement: restless Objective Labs 10/19/23 05:18 10/19/23 05:18 Labs: Laboratory Results - last 24 hr 10/19/23 10/19/23 05:18 10:25 WBC 12.0 H RBC 4.51 Hgb 13.2 L Hct 38.6 L MCV 85.6 MCH 29.2 MCHC 34.1 RDW 12.6 Plt Count 395 Neut % (Auto) 70.3 Lymph % (Auto) 20.3 L [place] % (Auto) 8.9 Eos % (Auto) 0.3 L Baso % (Auto) 0.2 Neut # (Auto) 8400 H Lymph # (Auto) 2400 [place] # (Auto) 1100 H Eos # (Auto) 0 Baso # (Auto) 0 Sodium 137 Potassium 3.5 Chloride 107 Carbon Dioxide 25 BUN 14 Creatinine 0.46 L Estimated GFR > 60 BUN/Creatinine Ratio 30.4 H Glucose 171 H Calcium 8.8 Magnesium 1.9 Total Bilirubin 0.5 AST 22 ALT 25 Alkaline Phosphatase 78 Total Protein 6.8 Albumin 3.8 Globulin 3.0 Albumin/Globulin Ratio 1.3 Nasal Screen MRSA (PCR) Not detected [facility] Medical History Diabetes type 2, uncontrolled Diabetic foot ulcer Social History (Updated 10/16/23 @ 18:49 by Lincoln Maguire DO) household members: none Smoking Status: Current every day smoker alcohol intake: former substance use type: does not use Assessment & Plan Post-op Postoperative Procedures: Procedures Operation Date: 10/18/23 11:15 Actual Procedure Side Surgeon p Incision and Drainage Wound/Extremity WITH CULTURES Severino Neal MD Postoperative day: 1 Postoperative plan narrative: 1) Continue IV abx per medicine. Still awaiting final culture results. 2) Continue dressing changes per wound care. Extra gauze was placed over the lateral right 1st toe to help absorb the additional drainage from the wound. 3) Weight bear as tolerated in the post-op surgical shoe for pressure offloading. 4) Follow up in our office in 1-2 weeks for wound check, possible suture removal. Quality VTE Deep Vein Thrombosis/Pulmonary Embolism Present on Admission: No
[2023-10-19] MEDS: QUETIAPINE 25 MG TABLET PO (21:01)
[2023-10-19] MEDS: SENNOSIDES 8.6 MG TABLET 17.2 MG PO (21:02)
[2023-10-20] VITALS (8 sets, daily range): BP systolic 88–118; BP diastolic 58–79; PULSE 65–88; RESP 16–18; TEMP 36.4; O2SAT 96–98
[2023-10-20] MEDS: ACETAMINOPHEN 325 MG TABLET 650 MG PO (00:01)
[2023-10-20] MEDS: HYDROMORPHONE 0.5 MG INJ 1 MG IV (00:46)
[2023-10-20] MEDS: QUETIAPINE 25 MG TABLET 50 MG PO (00:46)
--- NOTE | 2023-10-20 01:14 | PC.NURSE ---
Addendum entered by Richa Ferraro R.N. 10/20/23 04:08: Patient awoke again agitated, stating you guys are all brainwashed. Requesting another medication to help him sleep. Stating this is day 5 of no sleep and that his hip pain has returned. Explained to patient that the only medication available currently is PO oxycodone; oxycodone requested and given. Patient currently ambulating in hallway. Addendum entered by Richa Ferraro R.N. 10/20/23 02:57: Patient awoke agitated, stated that the IV pump is too loud and stated that the dilaudid has washed out of the system and the hip pain is coming back. Told this RN to stop the fluid bolus, BP 116/78, about 500cc NS given. Patient is in his room increasingly agitated and is talking to himself. Notified coordinator & MD, 5mg Haldol ordered. Patient is now willing to receive IV abx. Addendum entered by Richa Ferraro R.N. 10/20/23 01:52: Patient is hypotensive (88/58, MAP 66), HR 65. Notified MD Parks, NS bolus ordered & started. Patient is alert & denies dizziness. 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 Right toe dressing is CDI, orthotic boot on both feet, CMS intact. States that right toe pain is 6/10, complaints of new left hip pain that is increasingly painful. Patient denies falling or bumping left hip, states that it feels like a pulled muscle, and it started this afternoon. No bruise or abnormalities visible on left. Medicated with 10mg PO oxycodone + tylenol, patient states that it is not effective, and is pacing the hallway becoming increasingly agitated. Attempted to reposition patient and place ice pack on left hip, no relief. Patient stated that he will be refusing IV abx until pain resolves, and is questioning this RN about giving him fake pain medication d/t pain not being relieved. Notified MD Parks of patient behavior & pain, new orders given for IV Dilaudid & PO Seroquel. New medications given, pt stated that he finally felt relieved. Plan of care ongoing.
[2023-10-20] MEDS: CEFEPIME 2 GM in SODIUM CHLORIDE 0.9% 100 ML IV (01:40)
[2023-10-20] MEDS: SODIUM CHLORIDE 0.9% 1,000 ML 1000 ML IV (01:42)
[2023-10-20] MEDS: VANCOMYCIN 1,250 MG/250 ML PIGGYBACK 250 MG IV (02:39)
[2023-10-20] MEDS: diphenhydrAMINE 50 MG/ML VIAL IV (02:46)
[2023-10-20] MEDS: HALOPERIDOL 5 MG/ML VIAL IV (02:46)
[2023-10-20] MEDS: OXYCODONE IR 10 MG TABLET PO ×2 (03:33→08:55)
--- NOTE | 2023-10-20 08:22 | PM.PNPO.1 ---
Subjective Subjective Date Patient Seen: 10/20/23 Time Patient Seen: 08:22 Interval history: Patient is found crawling into bed after exiting the restroom. Appears to be in good spirits. He is dressed in his regular close. States he has no pain or discomfort. He is just waiting for the laboratory results to be completed so that he may be discharged in the next day or 2. Exam Vital Signs (past 8 hours): - 10/20/23 00:56 10/20/23 01:35 10/20/23 01:55 Pulse Rate 65 Blood Pressure 103/72 88/58 L Pulse Oximetry 96 Oxygen Delivery Method Room Air Oxygen Flow Rate 10/20/23 02:30 Pulse Rate Blood Pressure 116/78 Pulse Oximetry 98 Oxygen Delivery Method Oxygen Flow Rate 0 Oxygen Delivery Method Room Air Oxygen Flow Rate 0 Narrative Exam Narrative: Patient's second fourth and fifth toes are dressed. Dressing is clean with no discharge noted. Sensation of the tip of all 5 toes. He is able to wiggle all 5 toes. Able to dorsiflex and plantarflex against resistance. Pedal pulses intact. Objective Labs 10/20/23 10:00 10/19/23 05:18 Labs: Laboratory Results - last 24 hr 10/19/23 10:25 Nasal Screen MRSA (PCR) Not detected [facility] Medical History Diabetes type 2, uncontrolled Diabetic foot ulcer Social History (Updated 10/16/23 @ 18:49 by Lincoln Maguire DO) household members: none Smoking Status: Current every day smoker alcohol intake: former substance use type: does not use Assessment & Plan Post-op Postoperative Procedures: Procedures Operation Date: 10/18/23 11:15 Actual Procedure Side Surgeon p Incision and Drainage Wound/Extremity WITH CULTURES Severino Neal MD Postoperative day: 2 Postoperative status: doing well Postoperative plan: routine post-op care Postoperative plan narrative: 1) Continue IV abx per medicine. Still awaiting final culture results. 2) Continue dressing changes per wound care. 3) Weight bear as tolerated in the post-op surgical shoe for pressure offloading. 4) Follow up in our office in 1-2 weeks for wound check, possible suture removal. Time Spent With Patient Time with patient: less than 15 minutes Quality VTE Deep Vein Thrombosis/Pulmonary Embolism Present on Admission: No
[2023-10-20] MEDS: ERTAPENEM 1 GM in SODIUM CHLORIDE 0.9% 100 ML IV (09:28)
[2023-10-20] MEDS: polyethylene glycoL 3350 17 GM POWD.PACK PO (09:29)
[2023-10-20] MEDS: lamoTRIgine 100 MG TABLET 25 MG PO (09:31)
[2023-10-20] MEDS: DOCUSATE 100 MG CAPSULE PO (09:32)
[2023-10-20] MEDS: INSULIN LISPRO 100 UNIT/ML 3ML VIAL SUBCUT ×2 (09:33→12:28)
[2023-10-20] MEDS: INSULIN GLARGINE 100 UNIT/ML 3ML PEN 20 UNIT SUBCUT (09:35)
[2023-10-20] MEDS: ENOXAPARIN 40 MG/0.4 ML SYRINGE SUBCUT (10:00)
[2023-10-20 10:23] LABS: Add Manual Diff / Slide Review NO; Basophils Absolute Auto 100 /uL (0-100); Basophils Percent Auto 0.7 % (0-2); Eosinophils Absolute Auto 0 /uL (0-450); Eosinophils Percent Auto 0.5 % (2-4); Hemoglobin 13.2 g/dL (13.5-17.5); Lymphocytes Absolute Auto 1500 /uL (1100-4500); Lymphocytes Percent Auto 17.9 % (25-40); Mean Corpuscular HGB Conc 33.9 % (30-36); Mean Corpuscular Hemoglobin 29.2 PG (26-34); Mean Corpuscular Volume 86.3 fL (80-100); Monocytes Absolute Auto 700 /uL (0-900); Monocytes Percent Auto 8.5 % (3-14); Neutrophils Absolute Auto 6200 /uL (1500-7000); Neutrophils Percent Auto 72.4 % (50-75); Platelet Count 400 X10^3/uL (150-400); Red Blood Cell Count 4.52 X10^6/uL (4.5-5.9); Red Cell Distribution Width 12.4 % (11.6-14.8); White Blood Cell Count 8.6 X10^3/uL (4.5-11.0)
[2023-10-20 10:32] LABS: Creatine Kinase 119 U/L (55-170)
--- NOTE | 2023-10-20 11:37 | P.DS_ITS ---
History of Present Illness History of Present Illness Chief complaint: feet infected/rt foot open wound Narrative: This is a 63 year old male with PMH of uncontrolled DM, right foot wound sent in by the wound clinic for worsening R foot wound. He was seen 8 days ago for a right foot wound which grew enterobacter resistant to keflex. He completed keflex, was supposed to start bactrim but did not start. He came in today with worsening R foot wound for the past 3 days. Also states he has had recent weight loss of nearly 30 lbs, polyuria and polydipsia. He denies fever, chills, nausea, vomiting. He states he has not slept for more than an hour for the past week, and feels a little out of it due to that. He has no PCP and lives in a hotel. Vitals were unremarkable, XR showed no osteo, discussed with ortho whom recommended MRI and admission for antibiotics. Discharge Providers Provider Date of admission: 10/16/23 18:07 Discharge Date: 10/20/23 Primary care physician: Doctor Diana MD Consults: 10/16/23 18:50 Consult to Orthopedic Surgery Routine Comment: Consulting Provider: Severino Neal Reason for consultation: R diabetic foot infection Has provider been notified: Yes 10/16/23 19:03 Consult to Dietitian, Adult Routine Comment: Reason For Exam: DM 10/18/23 12:28 Consult to Dietitian, Adult Routine Comment: Reason For Exam: diabetic management after discharge Consult to Discharge Planning Routine Comment: Consult to Inpatient Wound Care Nurse Routine Comment: Reason for consultation: manage foot wound Has provider been notified: No Consult to Physical Therapy Evaluate & Treat Comment: Physician Instructions: Evaluate and Treat Consult to Wound Care Routine Comment: Consulting Provider: [facility] Discharge provider: Tom Cooper DO Summary Hospital Course Discharge Diagnosis: 1. R great toe cellulitis and abscess with osteomyelitis and infected R 1st interphalangeal joint, due to diabetic neuropathy - failed outpatient therapy with keflex, though previous cultures resistant, did not miner pick prescribed bactrim. - orthopedic surgery consultation for surgical management. Discussed with orthopedic provider after MRI showed osteomyelitis and a fistulous tract from the skin to interphalangeal joint. - underwent OR debridement on 10/17, with operative cultures growing enterobacter cloacae and enterococcus faecalis - ESR 56, CRP 6.9 on admit. - improve glucose control as noted below. - arterial LE duplex shows no evidence of significant arterial stenosis 2. Uncontrolled DM, new diagnosis - Recent weight loss, polyuria and polydipsia. Glucose >300 on presentation - started lantus 20u BID - shovel mechanic consulted - A1c 11.1% - started metformin on discharge, patient not interested in insulin so PCP will need to address this 3. Possible bipolar disorder, with restlessness - patient reports being awake for nearly a week, has some grandiose ideas related to money - consider mood stabilizer and psych consultation when available - seroquel nightly has helped the insomnia, prescribed on discharge 4. Tobacco use - nicotine patch ordered as patient has been frequently requesting to smoke in his room or outside. Hospital Course: Admitted for right great toe wound, with cellulitis and found to have osteo and infected 1st interphalangeal joint. Placed on IV abx. Likely due to poor diabetic control and neuropathy. Taken for debridement by ortho and OR cultures taken. Grew enterobacter and enterococcus so placed on IV dapto and ertapenem x6 weeks. PICC line placed. Will f/up with [facility] VAL[facility] in 1 week as well as wound care clinic. Had insomnia which improved with seroquel. Placed on metformin for his poorly controlled diabetes. He will obtain a new PCP at [facility] for ongoing management of his diabetes and possibly starting insulin. Exam Vital Signs (past 8 hours): - 10/20/23 09:00 Temperature 97.6 F Pulse Rate 88 Respiratory Rate 18 Blood Pressure 118/79 Pulse Oximetry 98 Oxygen Flow Rate 0 Oxygen Delivery Method Room Air Oxygen Flow Rate 0 Narrative Exam Narrative: General:? Patient is well developed and well nourished, in no distress at this time. Chest:? Normal AP diameter and contour without kyphoscoliosis, no tachypnea, equal chest rise bilaterally. Lungs:? CTA b/l no wheezing rhonchi or rales. Cardio:?RRR no m/r/g. Musculoskeletal:? Muscle strength and tone are equal within normal limits Neuro:? Alert and orientated x3,? sensation to touch intact in all extremities, no gross deficits noted of cranial nerves. Psych:? Patient has a well-kept appearance, appropriate affect, mental status attitude thought context and judgment are appropriate for age. Objective Labs 10/20/23 10:00 10/19/23 05:18 Labs: Laboratory Results - last 24 hr 10/19/23 10/20/23 10:25 10:00 WBC 8.6 RBC 4.52 Hgb 13.2 L Hct 39.0 L MCV 86.3 MCH 29.2 MCHC 33.9 RDW 12.4 Plt Count 400 Neut % (Auto) 72.4 Lymph % (Auto) 17.9 L Nelson % (Auto) 8.5 Eos % (Auto) 0.5 L Baso % (Auto) 0.7 Neut # (Auto) 6200 Lymph # (Auto) 1500 Nelson # (Auto) 700 Eos # (Auto) 0 Baso # (Auto) 100 Total Creatine Kinase 119 Nasal Screen MRSA (PCR) Not detected [facility] Medical History Diabetes type 2, uncontrolled Diabetic foot ulcer Social History (Updated 10/16/23 @ 18:49 by Lincoln Maguire DO) household members: none Smoking Status: Current every day smoker alcohol intake: former substance use type: does not use Discharge Plan Discharge Plan Patient Disposition: Home Provider Discharge Comment: You were found to have infection to the bone in your right great toe. You will now need 6 weeks of IV antibiotics to treat this fully. Please follow-up with the wound care doctor as well as the infectious disease doctor who will be monitoring your antibiotics. You will also need a PCP to help manage your diabetes, for which I've started you on metformin in the meantime. I also sent a pill for sleep that worked well for you. Discharge orders & Medications Prescriptions: New quetiapine 50 mg tablet 50 mg PO BEDTIME Qty: 30 0RF oxycodone-acetaminophen [Percocet] 10-325 mg tablet 1 tab PO Q4-6H PRN (Reason: pain) Qty: 20 0RF metformin 500 mg tablet 500 mg PO BIDWMEAL Qty: 60 0RF Discontinued clonazepam 1 mg tablet 1 mg PO DAILY PRN (Reason: Anxiety) Rx Instructions: prn sleep Follow up/Referrals: [facility] [Outside] (you will need to make contact with [facility] to establish/register for a paper mill manager-this paperwork can also be obtained at [facility] located @ [phone] [place], [place] [address]ation charline winters. please get care established as soon as possible ) Jasmin Fletcher MD [Non-Staff] - 10/27/23 10:00 am Doctor Ortiz MD [Primary Care Provider] - Other Ambulatory Orders: Referral to: (Schedule) Timeframe: 1 Week Location: Outside Services Ordered By: Tom Cooper Visit Report/Discharge Packet Instructions: How to Take Care of Your Feet If You Have Diabetes, Type 2 Diabetes, DI for Heart Failure, DI for Diabetes Type 2, DI for Prescription Opioid Use, DI for Incision and Drainage of a Joint, DI for Incision and Drainage, [facility]: Wound Care Stand Alone Forms: Congestive Heart Failure, Patient Portal/API, Stroke Signs & Symptoms, Surgery Discharge Discharge Data Primary Care Provider: Diana,Doctor Quality [facility]TE Deep Vein Thrombosis/Pulmonary Embolism Present on Admission: No
--- NOTE | 2023-10-20 12:03 | CM.DPNOTE ---
Addendum entered by PARAM Goldstein 10/20/23 14:37: Per Lauren at [facility], appt scheduled for 10:15am tomorrow. attempting to call pt mom to finalize appt. SL Addendum entered by PARAM Goldstein 10/20/23 13:38: From Dr. Cooper, f/u with [facility] I&D doctor scheduled for 10/26 at 10am. BUILDING MAINTENANCE REPAIRER updated pt with the appointment information. Pt appreciative. SL Original Note: DCP Note BUILDING MAINTENANCE REPAIRER reviewed EMR. Pt had some agitation and restlessness overnight per RN note Per hospitalist in morning rounds, pt medically cleared to dc today. Cultures indicate pt needs both IV ertapenem and IV daptomycin for 6weeks. Per Norma at the wound care clinic, pt has f/u appt scheduled for 8:30am Thursday10.23.23. Per Lauren/Radha at the [facility], pt can be seen tomorrow, time pending, and then daily for the next 6 weeks. BUILDING MAINTENANCE REPAIRER faxed script/order form. Scheduling will call him to schedule appt for tomorrow. BUILDING MAINTENANCE REPAIRER met with pt in room. Pt reports feeling overwhelmed at all his appointments. BUILDING MAINTENANCE REPAIRER printed off list of appointment times, locations, and phone numbers. BUILDING MAINTENANCE REPAIRER reviewed [facility] clinic/wound care appts with him in great detail. Pt will need to establish PCP with [facility], BUILDING MAINTENANCE REPAIRER provided pt with this phone number. Pt expressed verbal understanding and agreement with plan,. Pt reports mother will be here to assist him at [place] today. Pt denies other needs at this time. Plan; pt to dc today, home to [facility] with mother support. [facility] appointment tomorrow for IV abx, time pending. F/u with Wound care thursday. CM team will continue to follow closely. PARAM Goldstein
--- NOTE | 2023-10-20 14:46 | PC.NURSE ---
Pt appropriate today, voicing needs easily,up and active throughout day. See CM notes. Information given to Pt. D/c instructions given to Pt with this information being repeated several times. Valuables retrieved from safe and given to Pt. PICC intact. Right leg wrapped in plastic to prevent wound getting wet on transfer to car.
== END 2023-10-20 13:36 | disposition home or self-care (01) | DRG 629 ==
LOC: ED 18:07 → AC 18:26
PROVIDERS: Internal Medicine; Orthopaedic Surgery Orthopaedic Surgery of the Spine; Student in an Organized Health Care Education/Training Program; Admitting Provider Internal Medicine; Emergency Provider Physician Assistant Medical; Referring Provider Physician Assistant Medical; Visit Provider Internal Medicine
PROC: 0QBQ0ZZ Excision of Right Toe Phalanx, Open Approach (ICD-10-PCS; principal; 2023-10-18 11:15)
DX: E11.621 Type 2 diabetes mellitus with foot ulcer (principal); L97.518 Non-pressure chronic ulcer of other part of right foot with other specified severity; M86.171 Other acute osteomyelitis, right ankle and foot; L03.031 Cellulitis of right toe; E11.65 Type 2 diabetes mellitus with hyperglycemia; E11.42 Type 2 diabetes mellitus with diabetic polyneuropathy; B95.2 Enterococcus as the cause of diseases classified elsewhere; B96.89 Other specified bacterial agents as the cause of diseases classified elsewhere; F31.9 Bipolar disorder, unspecified; R45.1 Restlessness and agitation; Z72.0 Tobacco use
CPT/HCPCS: 11042; 36415; 36569; 71045; 73660; 73720; 80053; 80202; 80305; 82550; 82962; 83036; 83605; 83735; 85025; 85610; 85651; 85730; 86140; 87040; 87070; 87075; 87077; 87186; 87205; 87797; 93926; 96365; 97161; 99214; 99233; 99283; J0330; J0692; J0878; J1170; J1200; J1335; J1630; J1650; J1815; J2405; J2704; J3010

== ENCOUNTER 2023-10-28 12:17 | Emergency (ER) | payer MEDICARE, OTHER, SELFPAY ==
[2023-10-28 09:17] VITALS: BMI 26.9
[2023-10-28 12:19] VITALS: BP 108/81; PULSE 89; RESP 17; TEMP 36.8; O2SAT 96; BMI 25.7
[2023-10-28 12:28] VITALS: PULSE 88; O2SAT 95
[2023-10-28 12:30] VITALS: PULSE 83; O2SAT 98
[2023-10-28] MEDS: SODIUM CHLORIDE 0.9% 1,000 ML 1000 ML IV (12:32)
--- NOTE | 2023-10-28 12:34 | ED_ITS ---
HPI - General Adult General Chief complaint: Diabetic Problem Stated complaint: High blood sugar, Time Seen by Provider: 10/28/23 12:22 Source: patient Mode of arrival: Ambulatory Limitations: no limitations History of Present Illness HPI narrative: Patient is a 63-year-old male with a history of jdb-[id number]-[id number] diabetes who has been receiving infusions of antibiotics for a toe infection. Apparently he has not been taking his medications as directed. He was over at the infusion clinic today and was having episodes of diaphoresis and increased urination. They were concerned about DKA so the patient was sent here in the emergency department. Here in the ER he denies chest pain, shortness of breath, headache, abdominal pain, nausea vomiting. No change in bowel habits. Related Data Previous Rx's Medication Instructions Recorded metformin 500 mg tablet 500 mg PO BIDWMEAL #60 tabs 10/20/23 oxycodone-acetaminophen 10 mg-325 1 tab PO Q4-6H PRN pain #20 tabs 10/20/23 mg tablet (Percocet) quetiapine 50 mg tablet 50 mg PO BEDTIME #30 tabs 10/20/23 Allergies Allergy/AdvReac Type Severity Reaction Status Date / Time No Known Drug Allergies Allergy Verified 10/28/23 12:30 Review of Systems Review of Systems Narrative: See HPI Patient History Medical History Diabetes type 2, uncontrolled Diabetic foot ulcer Social History household members: none Smoking Status: Current every day smoker alcohol intake: former substance use type: does not use Smoking Status: Current every day smoker alcohol intake frequency: 0-2 drinks per day Substance Use Type: does not use Exam Initial Vital Signs Initial Vital Signs: Vital Signs Temperature 98.2 F 10/28/23 12:19 Pulse Rate 89 10/28/23 12:19 Respiratory Rate 17 10/28/23 12:19 Blood Pressure 108/81 10/28/23 12:19 Pulse Oximetry 96 10/28/23 12:19 Oxygen Delivery Method Room Air 10/28/23 12:19 Const General: cooperative, comfortable and No ill appearing HENMT Head: normal to inspection and normocephalic Resp Effort & Inspection: normal respiratory effort Cardio Rate: regular rate GI Inspection: normal to inspection Skin General: no rashes or lesions noted Neuro General: patient alert, patient awake and moves all extremities Extrem General: normal to inspection and capillary refill normal Course Orders Ordered: ED Orders 10/28/23 13:00 Complete Blood Count AUTO DIFF Stat Comprehensive Metabolic Panel Stat Ketones (Beta-Hydroxybutyrate) Stat Lactate (Lactic Acid) Stat Lipase Stat Magnesium Stat Phosphorous Stat 10/28/23 13:10 Venous Blood Gas Stat Discontinued Medications Sodium Chloride (Normal Saline 0.9%) 1,000 mls @ 1,000 mls/hr IV BOLUS ONE Stop: 10/28/23 13:21 Last Infusion: 10/28/23 13:46 Dose: Infused Documented By: Admin: 10/28/23 12:32 Dose: 1,000 mls/hr Documented By: VERA Vital Signs Vital signs: Vital Signs - 8 hr 10/28/23 12:19 10/28/23 12:28 10/28/23 12:30 Temperature 98.2 F Pulse Rate 89 88 83 Respiratory Rate 17 Blood Pressure 108/81 Pulse Oximetry 96 95 98 Oxygen Delivery Method Room Air 10/28/23 13:00 10/28/23 13:49 10/28/23 13:50 Temperature Pulse Rate 88 Respiratory Rate Blood Pressure 116/78 Pulse Oximetry 97 95 Oxygen Delivery Method 10/28/23 13:50 Temperature Pulse Rate 71 Respiratory Rate Blood Pressure Pulse Oximetry 98 Oxygen Delivery Method Medical Decision Making Lab Data Lab results reviewed: Yes I reviewed the patient's lab results. 10/28/23 13:00 10/28/23 13:00 Labs: Lab Results 10/28/23 10/28/23 Range/Units 13:00 13:10 WBC 11.3 H (4.5-11.0) X10^3/uL RBC 4.63 (4.5-5.9) X10^6/uL Hgb 13.4 L (13.5-17.5) g/dL Hct 40.1 L (41-53) % MCV 86.6 (80-100) fL MCH 28.9 (26-34) PG MCHC 33.4 (30-36) % RDW 12.8 (11.6-14.8) % Plt Count 420 H (150-400) X10^3/uL Neut % (Auto) 70.2 (50-75) % Lymph % (Auto) 19.5 L (25-40) % Newton % (Auto) 9.1 (3-14) % Eos % (Auto) 0.5 L (2-4) % Baso % (Auto) 0.7 (0-2) % Neut # (Auto) 7900 H (2342-3888) /uL Lymph # (Auto) 2200 (5037-4594) /uL Newton # (Auto) 1000 H (0-900) /uL Eos # (Auto) 100 (0-450) /uL Baso # (Auto) 100 (0-100) /uL VBG pH 7.34 (7.33-7.43) VBG pCO2 47.9 (45-50) mmHg VBG pO2 29 L (35-45) mmHg VBG HCO3 26 (24-28) mmol/L VBG Total CO2 27 (24-29) mmol/L VBG O2 Saturation 49 L (70-75) % VBG Base Excess 0.0 (0-4) mmol/L FiO2 21 Sodium 137 (137-145) mmol/L Potassium 4.2 (3.4-5.1) mmol/L Chloride 106 (98-107) mmol/L Carbon Dioxide 26 (22-32) mmol/L BUN 25 H (9-20) mg/dL Creatinine 0.55 L (0.66-1.25) mg/dL Estimated GFR > 60 (>60) mL/min BUN/Creatinine Ratio 45.5 H (6-22) Glucose 202 H (80-110) mg/dL Lactate 1.1 (0.7-2.1) mmol/L Calcium 8.8 (8.4-10.2) mg/dL Phosphorus 4.1 H (2.3-3.7) mg/dL Magnesium 2.3 (1.6-2.3) mg/dL Total Bilirubin 0.4 (0.2-1.3) mg/dL AST 33 (17-59) IU/L ALT 38 (<50) IU/L Alkaline Phosphatase 139 H (38-126) U/L Total Protein 7.1 (6.3-8.2) g/dL Albumin 4.1 (3.5-5.0) g/dL Globulin 3.0 (1.7-4.1) g/dL Albumin/Globulin Ratio 1.4 (1.0-2.8) Lipase 193 (23-300) U/L Ketones < 0.20 (<0.27) mmol/L Point of Care Testing Glucose POC 201 Urine Dip Bedside Urine Glucose 2000+ mg/dl Bedside Urine Bilirubin - Negative Bedside Urine Ketone - Negative Urine Specific [place] 1.015 Bedside Urine Occult Blood - Negative Bedside Urine pH 6.5 Bedside Urine Protein - Negative Bedside Urine Urobilinogen - Negative Bedside Urine Nitrite - Negative Bedside Urine Leukocytes - Negative Esterase Point of care testing: Point of Care Testing Glucose POC 201 Urine Dip Bedside Urine Glucose 2000+ mg/dl Bedside Urine Bilirubin - Negative Bedside Urine Ketone - Negative Urine Specific [place] 1.015 Bedside Urine Occult Blood - Negative Bedside Urine pH 6.5 Bedside Urine Protein - Negative Bedside Urine Urobilinogen - Negative Bedside Urine Nitrite - Negative Bedside Urine Leukocytes - Negative Esterase MDM Narrative Medical decision making narrative: Patient is hyperglycemic but is not in DKA. He is alert and oriented x3. Is tolerating oral intake. It turns out that he has not been taking his metformin as directed. I discussed all this with him. Will have him take his medications as directed and contact his primary doctor for follow-up. Discharge Plan Departure Patient Disposition: Home Clinical Impression: Hyperglycemia Instructions: DI for Hyperglycemia -- Adult Activity Restrictions/Additional Instructions: It is important that you take all of your medications as directed. Contact your primary doctor for a follow-up. Keep all of your scheduled medical appointments. Return to the emergency department for new symptoms. Prescriptions: No Action quetiapine 50 mg tablet 50 mg PO BEDTIME Qty: 30 0RF oxycodone-acetaminophen [Percocet] 10-325 mg tablet 1 tab PO Q4-6H PRN (Reason: pain) Qty: 20 0RF metformin 500 mg tablet 500 mg PO BIDWMEAL Qty: 60 0RF Stand Alone Forms: Patient Portal/API
[2023-10-28 13:00] VITALS: PULSE 88; O2SAT 97
[2023-10-28 13:19] LABS: Add Manual Diff / Slide Review NO; Basophils Absolute Auto 100 /uL (0-100); Basophils Percent Auto 0.7 % (0-2); Eosinophils Absolute Auto 100 /uL (0-450); Eosinophils Percent Auto 0.5 % (2-4); Hematocrit 40.1 % (41-53); Hemoglobin 13.4 g/dL (13.5-17.5); Lymphocytes Absolute Auto 2200 /uL (1100-4500); Lymphocytes Percent Auto 19.5 % (25-40); Mean Corpuscular HGB Conc 33.4 % (30-36); Mean Corpuscular Hemoglobin 28.9 PG (26-34); Mean Corpuscular Volume 86.6 fL (80-100); Monocytes Absolute Auto 1000 /uL (0-900); Monocytes Percent Auto 9.1 % (3-14); Neutrophils Absolute Auto 7900 /uL (1500-7000); Neutrophils Percent Auto 70.2 % (50-75); Platelet Count 420 X10^3/uL (150-400); Red Blood Cell Count 4.63 X10^6/uL (4.5-5.9); Red Cell Distribution Width 12.8 % (11.6-14.8); White Blood Cell Count 11.3 X10^3/uL (4.5-11.0)
[2023-10-28 13:32] LABS: HEMOLYSIS < 15 (0-50)
[2023-10-28 13:34] LABS: Fractionated Inspired Oxygen 21; HCO3 VBG 26 mmol/L (24-28); Oxygen Saturation VBG 49 % (70-75); PCO2 VBG 47.9 mmHg (45-50); PO2 VBG 29 mmHg (35-45); Total CO2 VBG 27 mmol/L (24-29); pH VBG 7.34 (7.33-7.43)
[2023-10-28 13:36] LABS: Lactate (Lactic Acid) 1.1 mmol/L (0.7-2.1)
[2023-10-28 13:37] LABS: Alanine Aminotransferase 38 IU/L (<50); Albumin 4.1 g/dL (3.5-5.0); Albumin Globulin Ratio 1.4 (1.0-2.8); Alkaline Phosphatase 139 U/L (38-126); Aspartate Aminotransferase 33 IU/L (17-59); BUN Creatinine Ratio 45.5 (6-22); Bilirubin Total 0.4 mg/dL (0.2-1.3); Blood Urea Nitrogen 25 mg/dL (9-20); Calcium 8.8 mg/dL (8.4-10.2); Carbon Dioxide 26 mmol/L (22-32); Chloride 106 mmol/L (98-107); Estimated Glomerular Filt Rate > 60 mL/min (>60); Glucose 202 mg/dL (80-110); Lipase 193 U/L (23-300); Magnesium 2.3 mg/dL (1.6-2.3); Phosphorous 4.1 mg/dL (2.3-3.7); Potassium 4.2 mmol/L (3.4-5.1); Sodium 137 mmol/L (137-145); Total Protein 7.1 g/dL (6.3-8.2)
[2023-10-28 13:49] VITALS: O2SAT 95
[2023-10-28 13:50] VITALS: BP 116/78; PULSE 71; O2SAT 98
[2023-10-28 14:01] LABS: Ketones (Beta-Hydroxybutyrate) < 0.20 mmol/L (<0.27)
== END 2023-10-28 14:13 | disposition home or self-care (01) ==
PROVIDERS: Emergency Provider Emergency Medicine
DX: E11.65 Type 2 diabetes mellitus with hyperglycemia (principal); Z91.148 Patient's other noncompliance with medication regimen for other reason
CPT/HCPCS: 80053; 81003; 82009; 82805; 82962; 83605; 83690; 83735; 84100; 85025; 96365; 99283; J1335

== ENCOUNTER → 2023-10-30 08:37 | Outpatient (CLI) | payer MEDICARE, OTHER, SELFPAY ==
[2023-10-28 09:17] VITALS: BMI 26.9
== END ==
PROVIDERS: PCP Nurse Practitioner Family; Referring Provider Physician Assistant; Visit Provider Physician Assistant
DX: E11.621 Type 2 diabetes mellitus with foot ulcer (principal); L97.512 Non-pressure chronic ulcer of other part of right foot with fat layer exposed; L97.522 Non-pressure chronic ulcer of other part of left foot with fat layer exposed; L84 Corns and callosities; R60.0 Localized edema; Z79.899 Other long term (current) drug therapy; M86.171 Other acute osteomyelitis, right ankle and foot
CPT/HCPCS: 11042; 99214

== ENCOUNTER → 2023-10-30 09:58 | Outpatient (CLI) | payer MEDICARE, OTHER, SELFPAY ==
[2023-10-28 09:17] VITALS: BMI 26.9
--- NOTE | 2023-10-30 10:00 | DI.RAD.S_ITS ---
PROCEDURE: XR FOOT LT MIN 3V INDICATIONS: Diabetic ulcer of left great toe (plantar surface) TECHNIQUE: 3 views of the foot were acquired. COMPARISON: None. FINDINGS: Bones: No fractures or dislocations. No suspicious bony lesions. Soft tissues: No tibiotalar joint effusion. Achilles tendon appears normal. 1st digit soft tissue edema is present. IMPRESSION: 1st digit soft tissue edema without visualized osseous erosions. Dictated by: Jewell Sosa M.D. on 10/30/2023 at 16:21 Approved by: Jewell Sosa M.D. on 10/30/2023 at 16:22
== END ==
PROVIDERS: PCP Nurse Practitioner Family; Referring Provider Physician Assistant; Visit Provider Physician Assistant
DX: E11.621 Type 2 diabetes mellitus with foot ulcer (principal); L97.529 Non-pressure chronic ulcer of other part of left foot with unspecified severity; M79.89 Other specified soft tissue disorders
CPT/HCPCS: 11042; 73630

== ENCOUNTER → 2023-11-02 12:00 | Outpatient (CLI) | payer MEDICARE, OTHER, SELFPAY ==
[2023-10-28 09:17] VITALS: BMI 26.9
[2023-11-02 12:34] LABS: Add Manual Diff / Slide Review NO; Basophils Absolute Auto 100 /uL (0-100); Basophils Percent Auto 0.8 % (0-2); Eosinophils Absolute Auto 100 /uL (0-450); Eosinophils Percent Auto 0.6 % (2-4); Hematocrit 42.3 % (41-53); Hemoglobin 14.2 g/dL (13.5-17.5); Lymphocytes Absolute Auto 2800 /uL (1100-4500); Lymphocytes Percent Auto 24.2 % (25-40); Mean Corpuscular HGB Conc 33.7 % (30-36); Mean Corpuscular Hemoglobin 29.4 PG (26-34); Mean Corpuscular Volume 87.3 fL (80-100); Monocytes Absolute Auto 800 /uL (0-900); Monocytes Percent Auto 6.8 % (3-14); Neutrophils Absolute Auto 7800 /uL (1500-7000); Neutrophils Percent Auto 67.6 % (50-75); Platelet Count 368 X10^3/uL (150-400); Red Blood Cell Count 4.84 X10^6/uL (4.5-5.9); Red Cell Distribution Width 12.4 % (11.6-14.8); White Blood Cell Count 11.6 X10^3/uL (4.5-11.0)
[2023-11-02 12:45] LABS: Hemoglobin A1C% w Est Avg Glu 11.4 % (4.0-6.0)
[2023-11-02 12:50] LABS: Alanine Aminotransferase 34 IU/L (<50); Albumin 4.3 g/dL (3.5-5.0); Albumin Globulin Ratio 1.3 (1.0-2.8); Alkaline Phosphatase 116 U/L (38-126); Aspartate Aminotransferase 31 IU/L (17-59); BUN Creatinine Ratio 43.6 (6-22); Bilirubin Total 0.4 mg/dL (0.2-1.3); Blood Urea Nitrogen 24 mg/dL (9-20); C-Reactive Protein Quant 1.7 mg/dL (<1.0); Calcium 9.1 mg/dL (8.4-10.2); Carbon Dioxide 26 mmol/L (22-32); Chloride 104 mmol/L (98-107); Estimated Glomerular Filt Rate > 60 mL/min (>60); Globulin 3.2 g/dL (1.7-4.1); Glucose 170 mg/dL (80-110); HEMOLYSIS < 15 (0-50); Potassium 4.6 mmol/L (3.4-5.1); Sodium 136 mmol/L (137-145); Total Protein 7.5 g/dL (6.3-8.2)
== END ==
PROVIDERS: PCP Nurse Practitioner Family; Referring Provider Student in an Organized Health Care Education/Training Program; Visit Provider Student in an Organized Health Care Education/Training Program
DX: M86.171 Other acute osteomyelitis, right ankle and foot (principal); E11.42 Type 2 diabetes mellitus with diabetic polyneuropathy
CPT/HCPCS: 36415; 80053; 83036; 85025; 86140

== ENCOUNTER → 2023-11-02 14:47 | Outpatient (CLI) | payer MEDICARE, OTHER, SELFPAY ==
[2023-10-28 09:17] VITALS: BMI 26.9
== END ==
PROVIDERS: PCP Nurse Practitioner Family; Referring Provider Physician Assistant; Visit Provider Surgery
DX: E11.621 Type 2 diabetes mellitus with foot ulcer (principal); L97.522 Non-pressure chronic ulcer of other part of left foot with fat layer exposed; L97.512 Non-pressure chronic ulcer of other part of right foot with fat layer exposed; R60.0 Localized edema; L84 Corns and callosities
CPT/HCPCS: 99213

== ENCOUNTER → 2023-11-04 14:00 | Outpatient (CLI) | payer MEDICARE, OTHER, SELFPAY ==
[2023-10-28 09:17] VITALS: BMI 26.9
== END ==
PROVIDERS: PCP Nurse Practitioner Family; Referring Provider Physician Assistant; Visit Provider Surgery
DX: E11.621 Type 2 diabetes mellitus with foot ulcer (principal); L97.512 Non-pressure chronic ulcer of other part of right foot with fat layer exposed; L97.522 Non-pressure chronic ulcer of other part of left foot with fat layer exposed; R60.0 Localized edema; L84 Corns and callosities
CPT/HCPCS: 99212

== ENCOUNTER → 2023-11-06 14:20 | Outpatient (CLI) | payer MEDICARE, OTHER, SELFPAY ==
[2023-10-28 09:17] VITALS: BMI 26.9
== END ==
LOC: WC 14:21
PROVIDERS: PCP Nurse Practitioner Family; Referring Provider Physician Assistant; Visit Provider Surgery
DX: E11.621 Type 2 diabetes mellitus with foot ulcer (principal); L97.522 Non-pressure chronic ulcer of other part of left foot with fat layer exposed; L97.512 Non-pressure chronic ulcer of other part of right foot with fat layer exposed; L84 Corns and callosities; R60.0 Localized edema; Z79.899 Other long term (current) drug therapy; M86.171 Other acute osteomyelitis, right ankle and foot
CPT/HCPCS: 11042

== ENCOUNTER → 2023-11-09 15:47 | Outpatient (CLI) | payer MEDICARE, OTHER, SELFPAY ==
[2023-10-28 09:17] VITALS: BMI 26.9
== END ==
PROVIDERS: PCP Nurse Practitioner Family; Referring Provider Physician Assistant; Visit Provider Surgery
DX: E11.621 Type 2 diabetes mellitus with foot ulcer (principal); L97.512 Non-pressure chronic ulcer of other part of right foot with fat layer exposed; L97.522 Non-pressure chronic ulcer of other part of left foot with fat layer exposed; L84 Corns and callosities; R60.0 Localized edema
CPT/HCPCS: 99213

== ENCOUNTER → 2023-11-11 13:41 | Outpatient (CLI) | payer MEDICARE, OTHER, SELFPAY ==
[2023-10-28 09:17] VITALS: BMI 26.9
== END ==
PROVIDERS: PCP Nurse Practitioner Family; Referring Provider Physician Assistant; Visit Provider Physician Assistant
DX: E11.621 Type 2 diabetes mellitus with foot ulcer (principal); L97.512 Non-pressure chronic ulcer of other part of right foot with fat layer exposed; L84 Corns and callosities; R60.0 Localized edema
CPT/HCPCS: 99213

== ENCOUNTER → 2023-11-16 14:17 | Outpatient (CLI) | payer MEDICARE, OTHER, SELFPAY ==
[2023-10-28 09:17] VITALS: BMI 26.9
== END ==
LOC: WC 14:18
PROVIDERS: PCP Nurse Practitioner Family; Referring Provider Physician Assistant; Visit Provider Surgery
DX: E11.621 Type 2 diabetes mellitus with foot ulcer (principal); L97.512 Non-pressure chronic ulcer of other part of right foot with fat layer exposed; R60.0 Localized edema; L84 Corns and callosities; Z79.899 Other long term (current) drug therapy
CPT/HCPCS: 99212

== ENCOUNTER → 2023-11-20 13:40 | Outpatient (CLI) | payer MEDICARE, OTHER, SELFPAY ==
[2023-10-28 09:17] VITALS: BMI 26.9
== END ==
PROVIDERS: PCP Nurse Practitioner Family; Referring Provider Nurse Practitioner Family; Visit Provider Physician Assistant
DX: E11.628 Type 2 diabetes mellitus with other skin complications (principal); R60.0 Localized edema; L84 Corns and callosities; Z79.899 Other long term (current) drug therapy
CPT/HCPCS: 99213

== ENCOUNTER → 2023-11-27 13:10 | Outpatient (CLI) | payer MEDICARE, OTHER, SELFPAY ==
[2023-10-28 09:17] VITALS: BMI 26.9
== END ==
LOC: WC 13:12
PROVIDERS: PCP Nurse Practitioner Family; Referring Provider Physician Assistant; Visit Provider Physician Assistant
DX: Z09 Encounter for follow-up examination after completed treatment for conditions other than malignant neoplasm (principal); Z86.31 Personal history of diabetic foot ulcer
CPT/HCPCS: 99211; 99212

== ENCOUNTER → 2023-12-02 14:19 | Outpatient (CLI) | payer MEDICARE, OTHER, SELFPAY ==
--- NOTE | 2023-12-16 16:08 | DIAB.MNT ---
Initial Diabetes Medical Nutrition Therapy Assessment Name: Spenser Brand Date: 12/02/23 Time: 240-335p Dx: Type II Diabetes Spenser presents for initial visit. Newly dx with T2DM with recent hgA1c above 10% x 3 occasions. Has been in wound care for toe. Was able to complete wound care after infection. Recently moved to [place] from [facility]. States he did not know you could be thin and have T2DM. Started DM orals but not insulin. States he threw out all sweets from his house. Diet Recall: 9a: eggs, 2 toast, +/- 8oz milk sn: nothing or 16oz milk 4-7p: chx, 3c noodles and 24oz milk sn: chicken, cookies half gallon milk per day, 32oz fruit punch Down to 4-5 cigarettes per day and plans to quit. Anthropometrics: Ht: 5'10 Wt: 184# UBW: 190# reported Physical Activity: Walking for ADLs, some situps, limited intentional physical activity Self-Monitoring Blood Glucose: Checking FBg and HS. FBG running 140-150mg/dl and HS often 140-240mg/dl but occasionally up to 300-400mg/dl. Diabetes Medications: 1000mg Metfomrin 5mg Glipizide 20u Glargine-- not taking Pertinent Labs: HGA1c: 10.9% 09/2023 11.1% 09/2023 11.4% 10/2023 Past Medical History: (Last Updated 10/31/23 @ 08:57 by Thea Botello, [facility]) Diabetes type 2, uncontrolled Diabetic foot ulcer Normocytic anemia Poor compliance with medication Nutrition Rx: Carbohydrates: Meal:45g Snack:15-30g Nutrition Diagnosis: - Excessive CHO intake r/t nutrition knowledge deficit and newly dx T2 aeb hgA1c >6.5%, diet recall, and pt report -Physical inactivity r/t stage of change contemplation aeb pt report Intervention: This participant was very receptive. Provided appropriate educational handouts. Discussed the following topics: Completed intake assessment. Discussed barriers to care. Pathophysiology of T2DM HgA1c, its correlation to blood glucose numbers, and rationale for goal Importance of self-monitoring, how often, and when to check. Suggested checking at different times to evaluate meals Plate Method, impact of macronutrients on blood sugar, meal timing, carbohydrate counting, pairing macronutrients and spreading out carbohydrates for better blood glucose management Recommended servings for carbohydrates at meals and snacks Heart health nutrition Brainstormed appropriate meal plan based on food preferences Role of physical activity and following provider guidelines for safety Created SMART goals for patient self-care and success. Goals: special education supervisor veggies Avoid juice Keep milk to 12 oz portions Keep carbs to 1c or less at meals Have lunch consistently Check BG and bring log book Follow-up: DELORES RIVERA follow-up next week in DSME classes and then 1:1 thereafter. Iman Duffy RDN, [facility] Certified Diabetes Care and Metal Mold Dresser P: [phone] Thank you for this referral
== END ==
PROVIDERS: PCP Nurse Practitioner Family; Referring Provider Nurse Practitioner Family
DX: E11.9 Type 2 diabetes mellitus without complications (principal); Z71.3 Dietary counseling and surveillance; Z79.84 Long term (current) use of oral hypoglycemic drugs
CPT/HCPCS: 97802

== ENCOUNTER → 2024-01-08 09:50 | Outpatient (CLI) | payer MEDICARE, OTHER, SELFPAY ==
--- NOTE | 2024-01-08 10:00 | DIAB.MNTFU ---
Follow-up Diabetes Medical Nutrition Therapy Assessment Name: Spenser Brand Date: 01/08/24 Time: [id number] Dx: Type II Diabetes Spenser presents for DM visit. Trying to keep cookies and cake out of the house. Reports some sight changes and numbness in feet with higher BG. Needs eye appt. Plans to stop buying cereal after this box. has cut out juice, has questions about sf juice or holder juice. Diet Recall: 9a: eggs, 1 toast, +8oz milk 12-1p: chips (pringles x 1/2 can) and cheese dip +16oz milk 4-7p: Bone steak and 6 onion ring, 2 x 16oz milk sn: nothing or frosted flakes cereal half gallon milk per day Up to 8-9 cigarettes per day and plans to quit. Last visit was 4-5 per day. States it might be due to boredom. 1/2 gallon or more of milk per day Anthropometrics: Ht: 5'10 Wt: 175# today UBW: 190# reported Physical Activity: Walking 1.5-2 mi per day, resistance training daily. Self-Monitoring Blood Glucose: Checking FBg and HS. FBG running 140-160mg/dl and HS often 140-175mg/dl. Diabetes Medications: 500mg Metformin AM 1000mg Metformin PM 5mg Glipizide 20u Glargine-- not taking Pertinent Labs: HGA1c: 10.9% 09/2023 11.1% 09/2023 11.4% 10/2023 Past Medical History: (Last Updated 10/31/23 @ 08:57 by Thea Botello [facility]) Diabetes type 2, uncontrolled Diabetic foot ulcer Normocytic anemia Poor compliance with medication Nutrition Rx: Carbohydrates: Meal:45g Snack:15-30g Nutrition Diagnosis: - Excessive CHO intake r/t nutrition knowledge deficit and newly dx T2 aeb hgA1c >6.5%, diet recall, and pt report -Physical inactivity r/t stage of change contemplation aeb pt report Intervention: This participant was very receptive. Provided appropriate educational handouts. Discussed the following topics: Milk impact on BG Juice impact on BG and importance of avoiding or choosing sf options Cereal impact on BG and options Smoking cessation CGM sample Reviewed CGM use and equipment Discussed when to check blood sugars using finger stick Reviewed high and low blood sugar signs/symptoms and treatment options Provided education for self-administration of CGM placement Educated patient on alarm settings Discussed equipment and disposal Created SMART goals for patient self-care and success. Goals: occupational therapy director veggies- in progress Avoid juice- met Keep milk to 12 oz portions- met Keep carbs to 1c or less at meals- in progress Have lunch consistently- met Check BG and bring log book- 50% met Keep milk to one cup per serving- new Wear CGM x 10 days and bring- new Try to reduce cigarettes to 4-5 per day or less- new Follow-up: DELORES RIVERA follow-up in 2 weeks Iman Duffy RDN, [facility] Certified Diabetes Care and Maintenance Equipment Operator P: [phone] Thank you for this referral
== END ==
PROVIDERS: PCP Nurse Practitioner Family; Referring Provider Nurse Practitioner Family
DX: E11.9 Type 2 diabetes mellitus without complications (principal); Z79.84 Long term (current) use of oral hypoglycemic drugs; Z71.3 Dietary counseling and surveillance
CPT/HCPCS: 97803

== ENCOUNTER → 2024-01-22 07:44 | Outpatient (CLI) | payer MEDICARE, OTHER, SELFPAY ==
--- NOTE | 2024-01-22 08:07 | DIAB.FU ---
Follow-up Diabetes Education Assessment Name: Spenser Brand Date: 01/22/24 Time: 8-830a Dx: Type II Diabetes Spenser presents for follow-up DM. Reports improved GI upset, originally from Metformin per report. Taking 500mg in the morning and 1000mg in the evening. PCP notes indicate goal of 1000mg BID. Avoiding sweets most days, though mom brought cake. Mom has been cooking for him, but left now. Cut out cereal. Still avoiding juice. Milk 1/2-1 gallon per day. No ETOH x 16 years. Cigarettes: one pack per day Reports a night of foggy brain after high CHO intake, did not check BG that night (large pasta portion and 5 yogurts). Determined things going well: he is exercising, avoiding sweets in the house, and has cut out juice. Things he feels needs more work: cigarette use and milk intake. Tried sf juice but stained his lips, which he did not like. Anthropometrics: Ht: 5'10 Wt: 174.8# today UBW: 190# reported Physical Activity: Walking 1.5-2 mi per day, resistance training daily. Self-Monitoring Blood Glucose: Wore a CGM sample, however did not bring compensation and hris analyst today for download. Will bring compensation and hris analyst next week. States he did not look at results while wearing it, but did try to eat healthier while wearing it. Diabetes Medications: 500mg Metformin AM 1000mg Metformin PM 5mg Glipizide 20u Glargine-- not taking Pertinent Labs: HGA1c: 10.9% 09/2023 11.1% 09/2023 11.4% 10/2023 Past Medical History: (Last Updated 10/31/23 @ 08:57 by Thea Botello, [facility]) Diabetes type 2, uncontrolled Diabetic foot ulcer Normocytic anemia Poor compliance with medication Intervention: This participant was very receptive. Provided appropriate educational handouts. Discussed the following topics: Things going well, and things needing more work in his opinion, ie milk intake, cigarette use Impact of milk on blood sugars Encouraged reduced cigarette use Potential brain fog with hyperglycemia Created SMART goals for patient self-care and success. Goals: Keep milk to one cup per serving- in progress Wear CGM x 10 days and bring- met Try to reduce cigarettes to 4-5 per day or less- in progress Cut back on cigarettes- new Cut back to 1/4 gallon milk per day- new Bring CGM compensation and hris analyst next week- new Follow-up: DELORES RIVERA follow-up in 1 week for CGM review Iman Duffy RDN, MIGUEL Certified Diabetes Care and Bottoming Machine Operator P: [phone] Thank you for this referral
== END ==
PROVIDERS: PCP Nurse Practitioner Family; Referring Provider Nurse Practitioner Family
DX: E11.9 Type 2 diabetes mellitus without complications (principal); Z79.84 Long term (current) use of oral hypoglycemic drugs; Z71.3 Dietary counseling and surveillance
CPT/HCPCS: G0108

== ENCOUNTER → 2024-02-05 08:59 | Outpatient (CLI) | payer MEDICARE, OTHER, SELFPAY ==
[2024-02-05 10:10] LABS: Hematocrit 44.4 % (41-53); Hemoglobin 15.1 g/dL (13.5-17.5); Mean Corpuscular Hemoglobin 29.7 PG (26-34); Mean Corpuscular Volume 87.4 fL (80-100); Platelet Count 313 X10^3/uL (150-400); Red Blood Cell Count 5.08 X10^6/uL (4.5-5.9); Red Cell Distribution Width 13.6 % (11.6-14.8); White Blood Cell Count 8.6 X10^3/uL (4.5-11.0)
[2024-02-05 10:29] LABS: Blood Urea Nitrogen 18 mg/dL (9-20); Calcium 9.5 mg/dL (8.4-10.2); Carbon Dioxide 26 mmol/L (22-32); Chloride 104 mmol/L (98-107); Cholesterol 172 mg/dL (140-199); Estimated Glomerular Filt Rate > 60 mL/min (>60); Glucose 225 mg/dL (80-110); HDL Cholesterol 60 mg/dL (40-60); HEMOLYSIS < 15 (0-50); LDL Cholesterol Calculated 88 mg/dL (<100); Potassium 4.4 mmol/L (3.4-5.1); Sodium 135 mmol/L (137-145); Triglycerides 119 mg/dL (35-150)
[2024-02-05 11:05] LABS: Hemoglobin A1C% w Est Avg Glu 8.2 % (4.0-6.0)
== END ==
PROVIDERS: PCP Nurse Practitioner Family; Referring Provider Nurse Practitioner Family; Visit Provider Nurse Practitioner Family
DX: E11.42 Type 2 diabetes mellitus with diabetic polyneuropathy (principal); L97.509 Non-pressure chronic ulcer of other part of unspecified foot with unspecified severity; E11.621 Type 2 diabetes mellitus with foot ulcer
CPT/HCPCS: 36415; 80048; 80061; 83036; 85027

== ENCOUNTER → 2024-06-27 08:34 | Outpatient (CLI) | payer MEDICARE, OTHER, SELFPAY ==
[2024-06-27 09:33] LABS: Creatinine Urine Random 33.36 mg/dL
[2024-06-27 09:38] LABS: Microalbumin Urine Random 1.2 mg/dL (0-1.6)
[2024-06-27 09:58] LABS: Hemoglobin A1C% w Est Avg Glu 13.4 % (4.0-6.0)
[2024-06-27 10:16] LABS: Alanine Aminotransferase 30 IU/L (<50); Albumin 4.4 g/dL (3.5-5.0); Albumin Globulin Ratio 1.7 (1.0-2.8); Alkaline Phosphatase 166 U/L (38-126); Aspartate Aminotransferase 26 IU/L (17-59); BUN Creatinine Ratio 38.7 (6-22); Bilirubin Total 0.4 mg/dL (0.2-1.3); Blood Urea Nitrogen 24 mg/dL (9-20); Calcium 9.5 mg/dL (8.4-10.2); Carbon Dioxide 27 mmol/L (22-32); Chloride 100 mmol/L (98-107); Estimated Glomerular Filt Rate > 60 mL/min (>60); Globulin 2.6 g/dL (1.7-4.1); Glucose 374 mg/dL (80-110); HEMOLYSIS < 15 (0-50); Potassium 4.5 mmol/L (3.4-5.1); Sodium 135 mmol/L (137-145)
[2024-06-27 10:41] LABS: Prostate Specific Antigen Scrn 1.19 ng/mL (0.1-4.0)
[2024-06-27 15:58] LABS: HIV 1 & 2 Ab/Ag 4th Gen Combo NEGATIVE (NEGATIVE); Hep C Virus Ab w/Reflex Quant NEGATIVE s/c (NEGATIVE)
== END ==
PROVIDERS: PCP Family Medicine; Referring Provider Family Medicine; Visit Provider Family Medicine
DX: E11.42 Type 2 diabetes mellitus with diabetic polyneuropathy (principal); Z12.5 Encounter for screening for malignant neoplasm of prostate
CPT/HCPCS: 36415; 80053; 82043; 82570; 83036; 86803; 87389; G0103

== ENCOUNTER 2024-08-06 00:09 | Emergency (ER) | payer MEDICARE, OTHER, SELFPAY ==
[2024-08-06] VITALS (9 sets, daily range): BP systolic 109–132; BP diastolic 71–84; PULSE 86–110; RESP 18–28; TEMP 36.8; O2SAT 93–97; BMI 29.0
--- NOTE | 2024-08-06 00:23 | DI.RAD.S_ITS ---
PROCEDURE: XR CHEST 1V INDICATIONS: Shortness of breath TECHNIQUE: One view of the chest was acquired. COMPARISON: [facility], CR, XR CHEST 1V, 10/18/2023, 18:20. FINDINGS: Surgical changes and devices: None. Lungs and pleura: Lungs are clear. No pleural effusions or pneumothorax. Mediastinum: Mediastinal contours appear normal. Heart size is normal. Bones and chest wall: No suspicious bony lesions. Overlying soft tissues appear unremarkable. IMPRESSION: No acute cardiopulmonary pathology. Dictated by: Dawson Verde M.D. on 08/06/2024 at 0:39 Approved by: Dawson Verde M.D. on 08/06/2024 at 0:39
--- NOTE | 2024-08-06 00:24 | PC.NURSE ---
pt states he has not been taking his suboxone states he wanted to get off of the medication and so he weaned himself down but hasn't had any for the last 3 days, pt states he hurts allover and feels like I'm in hell states he has been unable to eat for the last 3 days and has not been taking any of his other medication either which included his metformin. discussed with pt the importance of not stopping any kind of medication prior to talking with doctor
[2024-08-06] MEDS: ALBUTEROL/IPRATROPIUM 3 ML AMPUL INH (00:27)
--- NOTE | 2024-08-06 00:32 | ED_ITS ---
HPI - SOB/Dyspnea General Chief Complaint: Shortness of Breath/Dyspnea Stated Complaint: Difficulty breathing after stopping med Time Seen by Provider: 08/06/24 00:24 Source: patient Mode of arrival: Ambulatory Limitations: no limitations History of Present Illness HPI Narrative: 64-year-old male with history of diabetes, history of hypertension, history of 40+ pack year smoking, recent cough and increasing shortness of breath, arrived by private vehicle for evaluation. Denies chest pain except with coughing. Denies abdominal pain. Denies nausea vomiting diarrhea. Has not taken his metformin for the last 3 days. Related Data Previous Rx's Medication Instructions Recorded blood-glucose meter (OneTouch #1 ea 10/30/23 Verio Flex Start kit) blood sugar diagnostic (OneTouch #100 ea 11/03/23 Verio test strips) pen needle, diabetic 32 gauge x #100 ea 11/05/23 (BD Seda 2nd Gen Pen Needle) lancets 30 gauge (OneTouch #100 ea 12/28/23 UltraSoft 2 Lancet) blood-glucose meter,continuous #1 ea 01/29/24 (Dexcom G7 Steel Erecting Pusher) blood-glucose sensor (Dexcom G7 #1 ea 01/29/24 Sensor device) glipizide 2.5 mg tablet, extended 2.5 mg PO DAILY diabetes #100 tabs 06/24/24 release 24 hr lisinopril 2.5 mg tablet 2.5 mg PO DAILY #90 tabs 07/07/24 metformin 500 mg tablet,extended 1,000 mg (2 x 500 mg) PO BID 07/07/24 release 24 hr diabetes #360 tabs rosuvastatin 5 mg tablet (Crestor) 5 mg PO DAILY cholesterol #90 tabs 07/07/24 prednisone 20 mg tablet 40 mg (2 x 20 mg) PO DAILY 5 days 08/06/24 #10 tabs Allergies Allergy/AdvReac Type Severity Reaction Status Date / Time No Known Drug Allergies Allergy Verified 06/24/24 13:40 Patient History Medical History (Updated 08/06/24 @ 04:48 by Josué Franks MD) Microalbuminuria Tobacco dependence Poor compliance with medication Normocytic anemia Diabetes type 2, uncontrolled Diabetic foot ulcer Social History household members: none Smoking Status: Current every day smoker alcohol intake: former substance use type: does not use Smoking Status: Current every day smoker alcohol intake frequency: 0-2 drinks per day Exam Narrative Exam Narrative: GENERAL: Well-developed patient, in mild distress. HEAD: Atraumatic. Normocephalic. EYES: Pupils equal round and reactive. Extraocular motions intact. No scleral icterus. No injection or drainage. ENT: Nose without bleeding, purulent drainage. Throat without erythema, tonsillar hypertrophy or exudate. Airway patent. NECK: Trachea midline. Non tender CARDIOVASCULAR: Regular rate and rhythm without murmurs, gallops, or rubs. RESPIRATORY: Clear to auscultation. Breath sounds equal bilaterally. Wheeze bilateral lung vargas. No intercostal or suprasternal retractions, speaks in full sentences. GASTROINTESTINAL: Abdomen soft, non-tender, nondistended. EXTREMITIES: No edema or joint tenderness. BACK: Nontender without deformity or crepitance. No flank tenderness. NEURO: AOx3. Motor functions grossly nonfocal SKIN: No rash or erythema of visible areas Initial Vital Signs Initial Vital Signs: Vital Signs Temperature 98.2 F 08/06/24 00:24 Pulse Rate 107 H 08/06/24 00:24 Respiratory Rate 28 H 08/06/24 00:24 Blood Pressure 132/84 08/06/24 00:24 Pulse Oximetry 94 08/06/24 00:24 Oxygen Delivery Method Room Air 08/06/24 00:24 Course Orders Ordered: ED Orders 08/06/24 00:23 XR chest 1V Stat EKG-12 Lead Stat Measure peak expiratory flow ONCE RT Consult Eval and Treat NOW 08/06/24 00:30 Complete Blood Count AUTO DIFF Stat Comprehensive Metabolic Panel Stat Lactate (Lactic Acid) Stat NT-proBNP (BNP-Adult 18+) Stat Prothrombin Time INR Stat Troponin I Stat 08/06/24 00:42 EKG-12 Lead Routine Discontinued Medications Albuterol (Albuterol Hfa Prepack) 1 box MISC DIRECTED ONE Stop: 08/06/24 04:45 Last Admin: 08/06/24 04:48 Dose: 1 box Documented By: SANTIAGO Albuterol/Ipratropium (Albuterol/Ipratropium 3 Ml Ampul) 3 ml INH NOW ONE Stop: 08/06/24 00:24 Last Admin: 08/06/24 00:27 Dose: 3 ml Documented By: SCOTTY Sodium Chloride (Normal Saline 0.9%) 1,000 mls @ 1,000 mls/hr IV BOLUS ONE Stop: 08/06/24 04:30 Last Infusion: 08/06/24 04:40 Dose: Infused Documented By: Admin: 08/06/24 03:57 Dose: 1,000 mls/hr Documented By: MARQUIS Insulin Human Regular (Insulin Regular 100 Unit/Ml 3 Ml Vial) 10 unit SUBCUT NOW ONE Stop: 08/06/24 02:38 Last Admin: 08/06/24 03:02 Dose: 10 unit Documented By: SANTIAGO Co-signed By: MARQUIS Methylprednisolone (Methylprednisolone 125 Mg/2 Ml Vial) 125 mg IV NOW ONE Stop: 08/06/24 01:05 Last Admin: 08/06/24 01:15 Dose: 125 mg Documented By: MARQUIS Vital Signs Vital signs: Vital Signs - 8 hr 08/06/24 00:24 08/06/24 00:31 08/06/24 01:53 Temperature 98.2 F Pulse Rate 107 H 110 H 95 H Respiratory Rate 28 H 24 Blood Pressure 132/84 Pulse Oximetry 94 96 93 Oxygen Delivery Method Room Air Room Air Fraction of Inspired Oxygen 21 08/06/24 01:54 08/06/24 02:00 08/06/24 02:00 Temperature Pulse Rate 86 95 H Respiratory Rate 18 Blood Pressure 120/76 109/71 Pulse Oximetry 94 94 Oxygen Delivery Method Room Air Fraction of Inspired Oxygen 08/06/24 02:08 08/06/24 02:08 08/06/24 02:20 Temperature Pulse Rate 87 96 H Respiratory Rate Blood Pressure 120/72 Pulse Oximetry 97 94 Oxygen Delivery Method Fraction of Inspired Oxygen 08/06/24 04:56 08/06/24 04:57 Temperature Pulse Rate 104 H Respiratory Rate Blood Pressure 113/80 Pulse Oximetry 97 Oxygen Delivery Method Fraction of Inspired Oxygen MDM - SOB/Dyspnea Lab Data Attestation: I reviewed the patient's lab results. Lab results narrative: White blood cell count 93675, hemoglobin 16, platelets adequate. Glucose 588 elevated, with serum CO2 25, sodium 130. BUN 22 with creatinine 0.5. Potassium 4.6 normal. Alkaline phosphatase slight elevation, other liver functions unremarkable. Troponin negative/unmeasurable. 08/06/24 00:30 08/06/24 00:30 Labs: Lab Results 08/06/24 Range/Units 00:30 WBC 11.0 (4.5-11.0) X10^3/uL RBC 5.34 (4.5-5.9) X10^6/uL Hgb 16.0 (13.5-17.5) g/dL Hct 47.4 (41-53) % MCV 88.7 (80-100) fL MCH 30.0 (26-34) PG MCHC 33.9 (30-36) % RDW 12.6 (11.6-14.8) % Plt Count 268 (150-400) X10^3/uL Neut % (Auto) 68.3 (50-75) % Lymph % (Auto) 21.2 L (25-40) % Warrick % (Auto) 9.4 (3-14) % Eos % (Auto) 0.4 L (2-4) % Baso % (Auto) 0.7 (0-2) % Neut # (Auto) 7500 H (2144-5433) /uL Lymph # (Auto) 2300 (7087-7221) /uL Warrick # (Auto) 1000 H (0-900) /uL Eos # (Auto) 0 (0-450) /uL Baso # (Auto) 100 (0-100) /uL PT 9.8 (9.4-12.5) SECONDS INR 0.9 (0.9-1.3) Sodium 130 L (137-145) mmol/L Potassium 4.6 (3.4-5.1) mmol/L Chloride 93 L (98-107) mmol/L Carbon Dioxide 25 (22-32) mmol/L BUN 22 H (9-20) mg/dL Creatinine 0.50 L (0.66-1.25) mg/dL Estimated GFR > 60 (>60) mL/min BUN/Creatinine Ratio 44.0 H (6-22) Glucose 588 H* (80-110) mg/dL Lactate 1.9 (0.7-2.1) mmol/L Calcium 9.0 (8.4-10.2) mg/dL Total Bilirubin 0.7 (0.2-1.3) mg/dL AST 28 (17-59) IU/L ALT 35 (<50) IU/L Alkaline Phosphatase 178 H (38-126) U/L Troponin I < 0.012 (0.01-0.034) ng/mL NT-Pro-B Natriuret Pep 25 (<125) pg/mL Total Protein 7.1 (6.3-8.2) g/dL Albumin 4.4 (3.5-5.0) g/dL Globulin 2.7 (1.7-4.1) g/dL Albumin/Globulin Ratio 1.6 (1.0-2.8) Point of Care Testing Glucose POC 402 ECG Data Attestation: I personally reviewed and interpreted this ECG as follows: Interpretation: Normal sinus rhythm with rate of 98, no obvious ST segment elevation or depression changes. DE 142, QRS 116, QTC 480. MDM Narrative Medical decision making narrative: 64-year-old male with history of many pack-year smoking, cough and wheezing on examination, no oxygen requirement. IV Solu-Medrol, nebulized albuterol. Glucose 588 noted, normal anion gap, IV fluids and subcutaneous regular insulin given. Repeat glucose pending. Symptoms improved. Has inhaler for use at home. Prescription add for prednisone pulse 40 mg daily 5 days. Repeat glucose 400, improved from 588 after IV fluids and subcutaneous insulin, encouraged to take his oral diabetes medications as scheduled, discharged home. Discharge Plan Departure Patient Disposition: Home Clinical Impression: Dyspnea, Wheezing, Hyperglycemia, History of diabetes mellitus Instructions: DI for Hyperglycemia -- Adult, How to Manage Shortness of Breath Activity Restrictions/Additional Instructions: History of many pack years smoking, history of diabetes, recent shortness of breath and some cough with wheezing on examination. No oxygen requirement, speaking in full sentences. Chest x-ray without pneumonia like changes. IV steroid given to help with wheezing, breathing treatments given. Symptoms improved, able to ambulate. Glucose was noted to be high, history of diabetes known. No acidosis suspected, IV fluids and subcutaneous insulin given, with lowering of your blood sugar. Take your diabetes medications as directed. Inhaler of albuterol was dispensed with use of a spacer advised, 2 puffs 4 times daily for the next week or so. Additional steroid prednisone to take 2 tablets daily for the next 5 days, prescription sent to your pharmacy. Recheck advised with your regular doctor this week. Check your sugars at home. Return earlier to this/nearest emergency department for any change worsening symptoms or any concerns prior. Thank you for allowing our team take care of you today. Prescriptions: New prednisone 20 mg tablet 40 mg PO DAILY 5 Days Qty: 10 0RF No Action (DME) blood-glucose meter [OneTouch Verio Flex Start] Kit See Rx Instructions .Route Qty: 1 0RF Rx Instructions: As directed (DME) OneTouch Verio test strips Strip See Rx Instructions .Route Qty: 100 0RF Rx Instructions: use to test blood sugar 4x daily, before every meal and at bedtime (DME) lancets [OneTouch UltraSoft 2 Lancet] 30 gauge misc See Rx Instructions .Route Qty: 100 0RF Rx Instructions: use to test blood glucose 4 times daily (DME) Dexcom G7 Sensor Device See Rx Instructions .Route Qty: 1 0RF Rx Instructions: As directed (DME) Dexcom G7 Steel Erecting Pusher Misc See Rx Instructions .Route Qty: 1 0RF Rx Instructions: As directed (DME) pen needle, diabetic [BD Seda 2nd Gen Pen Needle] 32 gauge x 5/32 needle See Rx Instructions .Route Qty: 100 0RF Rx Instructions: As directed glipizide 2.5 mg tablet extended release 24hr 2.5 mg PO DAILY Qty: 100 3RF Rx Instructions: must take with a meal rosuvastatin [Crestor] 5 mg tablet 5 mg PO DAILY Qty: 90 3RF lisinopril 2.5 mg tablet 2.5 mg PO DAILY Qty: 90 3RF metformin 500 mg tablet extended release 24 hr 1,000 mg PO BID Qty: 360 0RF Referrals: Alen Staley DO [Primary Care Provider] - Stand Alone Forms: Patient Portal/API/Survey
--- NOTE | 2024-08-06 00:41 | EKG_ITS ---
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
--- NOTE | 2024-08-06 00:42 | EKG_ITS ---
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
[2024-08-06 01:15] LABS: Add Manual Diff / Slide Review NO; Basophils Absolute Auto 100 /uL (0-100); Basophils Percent Auto 0.7 % (0-2); Eosinophils Absolute Auto 0 /uL (0-450); Eosinophils Percent Auto 0.4 % (2-4); Hematocrit 47.4 % (41-53); Lymphocytes Absolute Auto 2300 /uL (1100-4500); Lymphocytes Percent Auto 21.2 % (25-40); Mean Corpuscular HGB Conc 33.9 % (30-36); Mean Corpuscular Volume 88.7 fL (80-100); Monocytes Absolute Auto 1000 /uL (0-900); Monocytes Percent Auto 9.4 % (3-14); Neutrophils Absolute Auto 7500 /uL (1500-7000); Neutrophils Percent Auto 68.3 % (50-75); Platelet Count 268 X10^3/uL (150-400); Red Blood Cell Count 5.34 X10^6/uL (4.5-5.9); Red Cell Distribution Width 12.6 % (11.6-14.8)
[2024-08-06] MEDS: methylPREDNISolone 125 MG/2 ML VIAL IV (01:15)
[2024-08-06 01:18] LABS: Lactate (Lactic Acid) 1.9 mmol/L (0.7-2.1)
[2024-08-06 01:19] LABS: Alanine Aminotransferase 35 IU/L (<50); Albumin 4.4 g/dL (3.5-5.0); Albumin Globulin Ratio 1.6 (1.0-2.8); Alkaline Phosphatase 178 U/L (38-126); Aspartate Aminotransferase 28 IU/L (17-59); Bilirubin Total 0.7 mg/dL (0.2-1.3); Blood Urea Nitrogen 22 mg/dL (9-20); Carbon Dioxide 25 mmol/L (22-32); Chloride 93 mmol/L (98-107); Estimated Glomerular Filt Rate > 60 mL/min (>60); Globulin 2.7 g/dL (1.7-4.1); HEMOLYSIS 21 (0-50); Potassium 4.6 mmol/L (3.4-5.1); Sodium 130 mmol/L (137-145); Total Protein 7.1 g/dL (6.3-8.2)
[2024-08-06 01:30] LABS: NT-proBNP (BNP-Adult 18+) 25 pg/mL (<125); Troponin I < 0.012 ng/mL (0.01-0.034)
[2024-08-06 01:37] LABS: Glucose 588 mg/dL (80-110)
[2024-08-06 01:48] LABS: INR 0.9 (0.9-1.3); Prothrombin Time 9.8 SECONDS (9.4-12.5)
[2024-08-06] MEDS: INSULIN REGULAR 100 UNIT/ML 3 ML VIAL 10 UNIT SUBCUT (03:02)
--- NOTE | 2024-08-06 03:34 | PC.NURSE ---
Pt given 2 puddings, 1 applesauce at this time.
[2024-08-06] MEDS: SODIUM CHLORIDE 0.9% 1,000 ML 1000 ML IV (03:57)
[2024-08-06] MEDS: ALBUTEROL HFA PREPACK 1 BOX MISC (04:48)
== END 2024-08-06 05:30 | disposition home or self-care (01) ==
PROVIDERS: Emergency Provider Emergency Medicine; PCP Family Medicine
DX: R06.00 Dyspnea, unspecified (principal); R06.2 Wheezing; E11.65 Type 2 diabetes mellitus with hyperglycemia; T38.3X6A Underdosing of insulin and oral hypoglycemic [antidiabetic] drugs, initial encounter; R07.9 Chest pain, unspecified; Z79.84 Long term (current) use of oral hypoglycemic drugs; Z91.148 Patient's other noncompliance with medication regimen for other reason; Z86.79 Personal history of other diseases of the circulatory system; Z87.891 Personal history of nicotine dependence
CPT/HCPCS: 36415; 71045; 80053; 82962; 83605; 83880; 84484; 85025; 85610; 93005; 94640; 96361; 96372; 96374; 99281; 99284; J2919

== ENCOUNTER 2024-08-06 18:40 | Emergency (ER) | payer MEDICARE, OTHER, SELFPAY ==
[2024-08-06 18:45] VITALS: BP 128/82; PULSE 100; RESP 18; TEMP 36.9; O2SAT 95; BMI 29.0
== END 2024-08-06 21:23 | disposition left against medical advice (07) ==
PROVIDERS: Emergency Provider Emergency Medicine; PCP Family Medicine
DX: R06.02 Shortness of breath (principal)
CPT/HCPCS: 99281

== ENCOUNTER → 2024-08-09 12:30 | Outpatient (CLI) | payer MEDICARE, OTHER, SELFPAY ==
--- NOTE | 2024-08-09 13:32 | DIAB.FU ---
Follow-up Diabetes Education Assessment Name: Spenser Brand Date: 08/09/2024 Time: 1-130p Dx: Type II Diabetes Spenser presents for follow-up DM. Last RD visit in 12/2023. Reports withdrawal symptoms sine d/c of suboxone x 8 days. Endorses diarrhea, insomnia, and fatigue. Did go to ED over the weekend. BG was found to be 588mg/dl. Not taking any of his DM meds due to feeling ill and weak per report. Drinking juice all day straight out of jug instead of eating. 01/[address] was meeting with Spenser consistently during that time, but since that time hgA1c has dramatically increased to 13.4%. Endorses worry about taking Metformin and worsening of diarrhea. Anthropometrics: Ht: 5'10 Wt: 206.5# 07/2024 UBW: 190# reported Self-Monitoring Blood Glucose: None. Cannot find his meter but knows it is at home. Diabetes Medications: 500mg Metformin AM--- not taking 1000mg Metformin PM--- not taking 5mg Glipizide--- not taking 20u Glargine-- not taking (has 1 year old pens at home, no rx currently) Pertinent Labs: HGA1c: 10.9% 09/2023 11.1% 09/2023 11.4% 10/2023 8.2% 01/2024 13.4% 06/2024 Past Medical History: (Last Updated 10/31/23 @ 08:57 by Thea Botello [facility]) Diabetes type 2, uncontrolled Diabetic foot ulcer Normocytic anemia Poor compliance with medication Intervention: This participant was very receptive. Provided appropriate educational handouts. Discussed the following topics: Importance of taking DM meds Exacerbation of fatigue with elevated BG Sick day DM management SMBG DM medications Encouraged him to contact PCP office prn regarding withdrawal and treatment of symptoms Created SMART goals for patient self-care and success. Goals: Find glucose meter Check FBG daily If not eating, reduce juice to 8-16oz TID at this time Take glipizide Slowly titrated Metformin up to rx dose Eat with Metformin Follow-up: DELORES RIVERA follow-up in 2-3 weeks Iman Duffy RDN, MIGUEL Certified Diabetes Care and Cadmium Liquor Maker P: [phone] Thank you for this referral
== END ==
PROVIDERS: PCP Family Medicine; Referring Provider Family Medicine
DX: E11.9 Type 2 diabetes mellitus without complications (principal); F11.23 Opioid dependence with withdrawal; R53.83 Other fatigue; Z71.3 Dietary counseling and surveillance; R19.7 Diarrhea, unspecified
CPT/HCPCS: G0108

== ENCOUNTER 2024-08-09 18:59 | Emergency (ER) | payer MEDICARE, OTHER, SELFPAY ==
[2024-08-09] VITALS (10 sets, daily range): BP systolic 96–131; BP diastolic 56–86; PULSE 86–107; RESP 5–38; TEMP 36.3; O2SAT 94–98; BMI 30.7
--- NOTE | 2024-08-09 19:21 | DI.RAD.S_ITS ---
PROCEDURE: XR CHEST 1V INDICATIONS: Shortness of breath TECHNIQUE: One view of the chest was acquired. COMPARISON: [facility], CR, XR CHEST 1V, 08/06/2024, 0:24. [facility], CR, XR CHEST 1V, 10/18/2023, 18:20. FINDINGS: Surgical changes and devices: None. Lungs and pleura: Lungs are clear. No pleural effusions or pneumothorax. Mediastinum: Mediastinal contours appear normal. Heart size is normal. Bones and chest wall: No suspicious bony lesions. Overlying soft tissues appear unremarkable. IMPRESSION: No acute cardiopulmonary abnormality is seen. Dictated by: Clifton Campos M.D. on 08/09/2024 at 19:39 Approved by: Clifton Campos M.D. on 08/09/2024 at 19:42
--- NOTE | 2024-08-09 19:31 | EKG_ITS ---
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
[2024-08-09] MEDS: ALBUTEROL/IPRATROPIUM 3 ML AMPUL INH (19:46)
[2024-08-09 20:13] LABS: Add Manual Diff / Slide Review NO; Basophils Absolute Auto 100 /uL (0-100); Basophils Percent Auto 0.8 % (0-2); Eosinophils Absolute Auto 100 /uL (0-450); Eosinophils Percent Auto 0.5 % (2-4); Hematocrit 47.5 % (41-53); Lymphocytes Absolute Auto 2900 /uL (1100-4500); Lymphocytes Percent Auto 22.9 % (25-40); Mean Corpuscular HGB Conc 33.7 % (30-36); Mean Corpuscular Hemoglobin 29.9 PG (26-34); Mean Corpuscular Volume 88.5 fL (80-100); Monocytes Absolute Auto 1000 /uL (0-900); Monocytes Percent Auto 7.8 % (3-14); Neutrophils Absolute Auto 8700 /uL (1500-7000); Platelet Count 305 X10^3/uL (150-400); Red Blood Cell Count 5.36 X10^6/uL (4.5-5.9); Red Cell Distribution Width 12.6 % (11.6-14.8); White Blood Cell Count 12.8 X10^3/uL (4.5-11.0)
[2024-08-09 20:19] LABS: INR 0.9 (0.9-1.3); Prothrombin Time 10.7 SECONDS (9.4-12.5)
[2024-08-09 20:24] LABS: Lactate (Lactic Acid) 1.4 mmol/L (0.7-2.1)
[2024-08-09 20:25] LABS: Alanine Aminotransferase 32 IU/L (<50); Albumin 4.3 g/dL (3.5-5.0); Albumin Globulin Ratio 1.6 (1.0-2.8); Alkaline Phosphatase 122 U/L (38-126); Aspartate Aminotransferase 26 IU/L (17-59); BUN Creatinine Ratio 39.6 (6-22); Bilirubin Total 0.7 mg/dL (0.2-1.3); Blood Urea Nitrogen 19 mg/dL (9-20); Calcium 9.2 mg/dL (8.4-10.2); Carbon Dioxide 24 mmol/L (22-32); Chloride 98 mmol/L (98-107); Estimated Glomerular Filt Rate > 60 mL/min (>60); Globulin 2.7 g/dL (1.7-4.1); Glucose 352 mg/dL (80-110); HEMOLYSIS < 15 (0-50); Potassium 4.2 mmol/L (3.4-5.1); Sodium 132 mmol/L (137-145)
[2024-08-09 20:37] LABS: NT-proBNP (BNP-Adult 18+) 73 pg/mL (<125); Troponin I < 0.012 ng/mL (0.01-0.034)
--- NOTE | 2024-08-09 20:39 | PC.NURSE ---
Pt reports high anxiety, it's my anxiety and states he is not coming off suboxone correctly which is making him feel anxious and states that is what is affecting his breathing. States he is very scared and does not feel safe. This RN reassured patient he is safe here in the ED. Call light within reach and encouraged to use for needs. Per RT pt has smoked for about 40 years and quite 4-5 days ago.
[2024-08-09] MEDS: methylPREDNISolone 125 MG/2 ML VIAL IV (21:12)
--- NOTE | 2024-08-09 21:40 | ED.SOB ---
HPI - SOB/Dyspnea General Chief Complaint: Shortness of Breath/Dyspnea Stated Complaint: difficulty breathing, weak legs, suboxone w/drawl Time Seen by Provider: 08/09/24 19:48 Source: patient, RN notes reviewed and old records reviewed Mode of arrival: Ambulatory Limitations: no limitations History of Present Illness HPI Narrative: 64-year-old male history of diabetes, hypertension 40 pack year if history of smoking presents with complaints shortness of breath. Patient was seen here on 08/06/2024 for similar. Patient states his main concern as anxiety. Patient was seen here states he has a some tightness in his chest with his wheezing. He denies fevers or chills. Denies any chest pain otherwise. Feels little bit short of breath but this all feels improved after he had nebulized treatments. Denies any nausea or vomiting. He has had some diarrhea. Patient denies any urinary symptoms no new swelling. He has had insomnia and feels like he was going through withdrawals. He was quite his Suboxone about 8 days ago. He states he was on it for about 3 years was told how to taper it but he thinks he maybe did not do it properly. He states he was supposed to be on metformin but not taking any other daily medications. He was not on any anticoagulants. No prior surgeries. No known drug allergies. Patient has a 40+ pack-year of tobacco use, denies alcohol states he quit 16 years ago denies any other recreational drugs. Does follow up with primary care. He states his main concern tonight is the anxiety from what he feels are withdrawal symptoms. He does feel much improved after treatments here. Related Data Previous Rx's Medication Instructions Recorded blood-glucose meter (OneTouch #1 ea 10/30/23 Verio Flex Start kit) blood sugar diagnostic (OneTouch #100 ea 11/03/23 Verio test strips) pen needle, diabetic 32 gauge x #100 ea 11/05/23 (BD Seda 2nd Gen Pen Needle) lancets 30 gauge (OneTouch #100 ea 12/28/23 UltraSoft 2 Lancet) blood-glucose meter,continuous #1 ea 01/29/24 (Dexcom G7 Sports Agent) blood-glucose sensor (Dexcom G7 #1 ea 01/29/24 Sensor device) glipizide 2.5 mg tablet, extended 2.5 mg PO DAILY diabetes #100 tabs 01/24/25 release 24 hr lisinopril 2.5 mg tablet 2.5 mg PO DAILY #90 tabs 07/07/24 metformin 500 mg tablet,extended 1,000 mg (2 x 500 mg) PO BID 07/07/24 release 24 hr diabetes #360 tabs rosuvastatin 5 mg tablet (Crestor) 5 mg PO DAILY cholesterol #90 tabs 07/07/24 prednisone 20 mg tablet 40 mg (2 x 20 mg) PO DAILY 5 days 08/06/24 #10 tabs lorazepam 0.5 mg tablet 0.5 mg PO BID PRN anxiety #7 tabs 08/09/24 Allergies Allergy/AdvReac Type Severity Reaction Status Date / Time No Known Drug Allergies Allergy Verified 08/06/24 18:45 Review of Systems Review of Systems ROS Unobtainable: All systems reviewed & are unremarkable except as noted in HPI and below Patient History Medical History Microalbuminuria Tobacco dependence Poor compliance with medication Normocytic anemia Diabetes type 2, uncontrolled Diabetic foot ulcer Social History household members: none Smoking Status: Current every day smoker alcohol intake: former substance use type: does not use Smoking Status: Current every day smoker alcohol intake frequency: 0-2 drinks per day Exam Narrative Exam Narrative: GENERAL: Alert and oriented x three, male in mild distress HEENT: Head normocephalic, atraumatic, EOMI, pupils reactive, face symmetric, moist mucous membranes NECK: Supple, full range of motion CARDIOVASCULAR: Regular rate and rhythm without murmurs, rubs or gallops. No JVD. No edema bilateral lower extremities. RESPIRATORY: Breath sounds equal bilaterally, mild tachypnea initially, patient was expiratory wheeze bilaterally, no rhonchi or crackle. ABDOMEN: Soft, nontender. Normoactive bowel sounds all 4 quadrants. No guarding or rebound, rigidity, no mass : No CVA tenderness EXTREMITIES: Normal range of motion, no clubbing or edema. Neurovascularly intact NEUROLOGICAL: Cranial nerves II through XII grossly intact. Moving all extremities SKIN: Warm, dry, no petechiae, no rashes or lesions. Initial Vital Signs Initial Vital Signs: Vital Signs Temperature 97.4 F L 08/09/24 19:11 Pulse Rate 107 H 08/09/24 19:11 Respiratory Rate 22 08/09/24 19:11 Blood Pressure 120/86 08/09/24 19:11 Pulse Oximetry 94 08/09/24 19:11 Oxygen Delivery Method Room Air 08/09/24 19:11 Course Orders Ordered: ED Orders 08/09/24 19:21 XR chest 1V Stat EKG-12 Lead Stat Measure peak expiratory flow ONCE RT Consult Eval and Treat NOW 08/09/24 21:25 Trop I [Troponin I] Stat Discontinued Medications Albuterol (Albuterol Hfa Prepack) 1 box MISC DIRECTED ONE Stop: 08/09/24 22:20 Last Admin: 08/09/24 22:39 Dose: 1 box Documented By: Albuterol/Ipratropium (Albuterol/Ipratropium 3 Ml Ampul) 3 ml INH NOW ONE Stop: 08/09/24 19:43 Last Admin: 08/09/24 19:46 Dose: 3 ml Documented By: ARTHUR Lorazepam (Lorazepam 0.5 Mg Tablet) 1 mg PO NOW ONE Stop: 08/09/24 21:57 Last Admin: 08/09/24 22:21 Dose: 1 mg Documented By: JOANIE Methylprednisolone (Methylprednisolone 125 Mg/2 Ml Vial) 125 mg IV NOW ONE Stop: 08/09/24 20:58 Last Admin: 08/09/24 21:12 Dose: 125 mg Documented By: JOANIE Vital Signs Vital signs: Vital Signs - 8 hr 08/09/24 19:11 08/09/24 19:43 08/09/24 19:44 Temperature 97.4 F L Pulse Rate 107 H 100 H Respiratory Rate 22 38 H Blood Pressure 120/86 131/81 Pulse Oximetry 94 Oxygen Delivery Method Room Air Oxygen Flow Rate Fraction of Inspired Oxygen 08/09/24 19:44 08/09/24 19:46 08/09/24 20:00 Temperature Pulse Rate 102 H 100 H Respiratory Rate 32 H 22 Blood Pressure 117/81 Pulse Oximetry 95 Oxygen Delivery Method Room Air Oxygen Flow Rate 0 Fraction of Inspired Oxygen 21 08/09/24 20:00 08/09/24 20:30 08/09/24 20:30 Temperature Pulse Rate 93 H 86 Respiratory Rate 33 H 32 H Blood Pressure 107/63 Pulse Oximetry 94 96 Oxygen Delivery Method Room Air Nasal Cannula Oxygen Flow Rate 1 Fraction of Inspired Oxygen 08/09/24 21:00 08/09/24 21:00 08/09/24 21:30 Temperature Pulse Rate 89 Respiratory Rate 30 H Blood Pressure 105/63 107/76 Pulse Oximetry 98 Oxygen Delivery Method Oxygen Flow Rate Fraction of Inspired Oxygen 08/09/24 21:30 08/09/24 22:00 08/09/24 22:00 Temperature Pulse Rate 97 H 92 H Respiratory Rate 28 H 24 Blood Pressure 115/74 Pulse Oximetry 96 95 Oxygen Delivery Method Room Air Oxygen Flow Rate Fraction of Inspired Oxygen 08/09/24 22:30 08/09/24 22:30 Temperature Pulse Rate 89 Respiratory Rate 5 L Blood Pressure 96/56 L Pulse Oximetry Oxygen Delivery Method Oxygen Flow Rate Fraction of Inspired Oxygen MDM - SOB/Dyspnea Lab Data 08/09/24 17:44 08/09/24 17:44 Labs: Lab Results 08/09/24 08/09/24 Range/Units 17:44 21:25 WBC 12.8 H (4.5-11.0) X10^3/uL RBC 5.36 (4.5-5.9) X10^6/uL Hgb 16.0 (13.5-17.5) g/dL Hct 47.5 (41-53) % MCV 88.5 (80-100) fL MCH 29.9 (26-34) PG MCHC 33.7 (30-36) % RDW 12.6 (11.6-14.8) % Plt Count 305 (150-400) X10^3/uL Neut % (Auto) 68.0 (50-75) % Lymph % (Auto) 22.9 L (25-40) % [place] % (Auto) 7.8 (3-14) % Eos % (Auto) 0.5 L (2-4) % Baso % (Auto) 0.8 (0-2) % Neut # (Auto) 8700 H (3994-9038) /uL Lymph # (Auto) 2900 (6619-5194) /uL [place] # (Auto) 1000 H (0-900) /uL Eos # (Auto) 100 (0-450) /uL Baso # (Auto) 100 (0-100) /uL PT 10.7 (9.4-12.5) SECONDS INR 0.9 (0.9-1.3) Sodium 132 L (137-145) mmol/L Potassium 4.2 (3.4-5.1) mmol/L Chloride 98 (98-107) mmol/L Carbon Dioxide 24 (22-32) mmol/L BUN 19 (9-20) mg/dL Creatinine 0.48 L (0.66-1.25) mg/dL Estimated GFR > 60 (>60) mL/min BUN/Creatinine Ratio 39.6 H (6-22) Glucose 352 H D (80-110) mg/dL Lactate 1.4 (0.7-2.1) mmol/L Calcium 9.2 (8.4-10.2) mg/dL Total Bilirubin 0.7 (0.2-1.3) mg/dL AST 26 (17-59) IU/L ALT 32 (<50) IU/L Alkaline Phosphatase 122 D (38-126) U/L Troponin I < 0.012 < 0.012 (0.01-0.034) ng/mL NT-Pro-B Natriuret Pep 73 (<125) pg/mL Total Protein 7.0 (6.3-8.2) g/dL Albumin 4.3 (3.5-5.0) g/dL Globulin 2.7 (1.7-4.1) g/dL Albumin/Globulin Ratio 1.6 (1.0-2.8) ECG Data Attestation: I personally reviewed and interpreted this ECG as follows: Interpretation: Sinus tach rate of 102, OK 134 QRS of 110 QTC of 458, no acute ST elevation, right bundle-branch block. [facility] Narrative Medical decision making narrative: 64-year-old male who states he was coming off Suboxone had difficulty with sleeping feeling very anxious some difficulty with breathing wheezy on examination. Patient had nebs which improved his wheezing. EKG shows sinus tach rate of 102. Labs show white count of 12.8 hemoglobin of 16. INR 0.9 sodium is 132 electrolytes are otherwise appropriate creatinine 0.48 glucose is 352, LFTs are negative lactate 1.4 troponins less than 0.012 with a BNP of 73. Troponin is less than 0.012 Chest x-ray is negative for acute change Patient received DuoNeb and had improvement of wheezing, Solu-Medrol. Patient was not given oral dose of antianxiety medication. His tachycardia had already improved. He was not tachypneic at bedside. Patient was on oxygen initially and when he feel asleep but was weaned down and did not have any desat's. Patient able to ambulate the department with out any issue. Discharged with spacer, training and albuterol which is says he thinks he is out. Discharge Plan Departure Patient Disposition: Home Clinical Impression: COPD exacerbation, Hyperglycemia Activity Restrictions/Additional Instructions: You need to follow up with primary care for rechecked. Finish the steroid that was prescribed to you at your last visit. Use albuterol inhaler, use with a spacer you can use this every 4 hours as needed. There is a short course of antianxiety medication included this medication can make you sleepy do not drive, perform hazardous activities or make any major decisions taking it. Pres[facility] was sent to [facility]. Please return for new or worsening symptoms, fevers, new chest pain, increasing shortness of breath, coughing up blood, persistent vomiting, new swelling of your extremities or other new or concerning changes. Prescriptions: New lorazepam 0.5 mg tablet 0.5 mg PO BID PRN (Reason: anxiety) Qty: 7 0RF No Action (DME) blood-glucose meter [OneTouch Verio Flex Start] Kit See Rx Instructions .Route Qty: 1 0RF Rx Instructions: As directed (DME) OneTouch Verio test strips Strip See Rx Instructions .Route Qty: 100 0RF Rx Instructions: use to test blood sugar 4x daily, before every meal and at bedtime (DME) lancets [OneTouch UltraSoft 2 Lancet] 30 gauge misc See Rx Instructions .Route Qty: 100 0RF Rx Instructions: use to test blood glucose 4 times daily (DME) Dexcom G7 Sensor Device See Rx Instructions .Route Qty: 1 0RF Rx Instructions: As directed (DME) Dexcom G7 Sports Agent Misc See Rx Instructions .Route Qty: 1 0RF Rx Instructions: As directed (DME) pen needle, diabetic [BD Seda 2nd Gen Pen Needle] 32 gauge x 5/32 needle See Rx Instructions .Route Qty: 100 0RF Rx Instructions: As directed glipizide 2.5 mg tablet extended release 24hr 2.5 mg PO DAILY Qty: 100 3RF Rx Instructions: must take with a meal rosuvastatin [Crestor] 5 mg tablet 5 mg PO DAILY Qty: 90 3RF lisinopril 2.5 mg tablet 2.5 mg PO DAILY Qty: 90 3RF metformin 500 mg tablet extended release 24 hr 1,000 mg PO BID Qty: 360 0RF prednisone 20 mg tablet 40 mg PO DAILY 5 Days Qty: 10 0RF Referrals: Alen Staley DO [Primary Care Provider] - Stand Alone Forms: Patient Portal/API/Survey
[2024-08-09 21:56] LABS: Troponin I < 0.012 ng/mL (0.01-0.034)
[2024-08-09] MEDS: LORazepam 0.5 MG TABLET 1 MG PO (22:21)
[2024-08-09] MEDS: ALBUTEROL HFA PREPACK 1 BOX MISC (22:39)
--- NOTE | 2024-08-09 22:39 | PC.NURSE ---
Pt taught how to use spacer with Albuterol HFA
== END 2024-08-09 22:40 | disposition home or self-care (01) ==
PROVIDERS: Emergency Provider Emergency Medicine; PCP Family Medicine
DX: J44.1 Chronic obstructive pulmonary disease with (acute) exacerbation (principal); E11.65 Type 2 diabetes mellitus with hyperglycemia; Z79.84 Long term (current) use of oral hypoglycemic drugs; F41.9 Anxiety disorder, unspecified; R07.9 Chest pain, unspecified; Z87.891 Personal history of nicotine dependence
CPT/HCPCS: 36415; 71045; 80053; 83605; 83880; 84484; 85025; 85610; 93005; 94640; 96374; 99285; G0108; J2919

== ENCOUNTER 2024-08-14 02:11 | Emergency (ER) | payer MEDICARE, OTHER, SELFPAY ==
[2024-08-14 02:23] VITALS: BP 127/83; PULSE 101; RESP 25; TEMP 36.9; O2SAT 96; BMI 30.1
--- NOTE | 2024-08-14 02:38 | PC.NURSE ---
Child had an episode of vomiting prior to Ibuprofen being given. Child given 2 mg Zofran and will wait until his stomach settles before giving the Ibuprofen
--- NOTE | 2024-08-14 02:39 | ED_ITS ---
HPI - SOB/Dyspnea General Chief Complaint: Shortness of Breath/Dyspnea Stated Complaint: SOB Time Seen by Provider: 08/14/24 02:26 Source: patient Mode of arrival: Ambulatory Limitations: no limitations History of Present Illness HPI Narrative: Patient is a 64-year-old male history of diabetes hypertension 40 pack year smoking presenting for the 3rd time this month with increasing shortness of breath. He has been treated for COPD. He also reports that he has been off of Suboxone for 11 days after being on it for the last 3 years. He reports that he can not sleep he has severe anxiety he keeps losing all of his medication. On his last visit 08/09/2024 he was given lorazepam 0.5 mg 7 tablets. He says that he has been taking some he has not sure where his meds are at the time. He does not feel like anyone is helping him. He was also been seen by primary care provider this month as well. Related Data Previous Rx's Medication Instructions Recorded blood-glucose meter (OneTouch #1 ea 10/30/23 Verio Flex Start kit) blood sugar diagnostic (OneTouch #100 ea 11/03/23 Verio test strips) pen needle, diabetic 32 gauge x #100 ea 11/05/23 5/32 (BD Seda 2nd Gen Pen Needle) lancets 30 gauge (OneTouch #100 ea 12/28/23 UltraSoft 2 Lancet) blood-glucose meter,continuous #1 ea 01/29/24 (Dexcom G7 Land Surveying Manager) blood-glucose sensor (Dexcom G7 #1 ea 01/29/24 Sensor device) glipizide 2.5 mg tablet, extended 2.5 mg PO DAILY diabetes #100 tabs 06/24/24 release 24 hr lisinopril 2.5 mg tablet 2.5 mg PO DAILY #90 tabs 07/07/24 metformin 500 mg tablet,extended 1,000 mg (2 x 500 mg) PO BID 07/07/24 release 24 hr diabetes #360 tabs rosuvastatin 5 mg tablet (Crestor) 5 mg PO DAILY cholesterol #90 tabs 07/07/24 lorazepam 0.5 mg tablet 0.5 mg PO BID PRN anxiety #7 tabs 08/11/24 Allergies Allergy/AdvReac Type Severity Reaction Status Date / Time No Known Drug Allergies Allergy Verified 08/11/24 09:53 Patient History Medical History Diabetes type 2, uncontrolled Diabetic foot ulcer Microalbuminuria Normocytic anemia Poor compliance with medication Tobacco dependence Social History household members: none Smoking Status: Current every day smoker alcohol intake: former substance use type: does not use Smoking Status: Current every day smoker alcohol intake frequency: 0-2 drinks per day Exam Initial Vital Signs Initial Vital Signs: Vital Signs Temperature 98.4 F 08/14/24 02:23 Pulse Rate 101 H 08/14/24 02:23 Respiratory Rate 25 H 08/14/24 02:23 Blood Pressure 127/83 08/14/24 02:23 Pulse Oximetry 96 08/14/24 02:23 Oxygen Delivery Method Room Air 08/14/24 02:23 GENERAL: Alert anxious 64-year-old male HEENT: Head atraumatic,EOMI, pupils reactive, face symmetric, moist mucous membranes CARDIOVASCULAR: Regular rate and rhythm without murmurs, rubs or gallops. RESPIRATORY: Speaking without any sort of respiratory distress but he does have mild audible wheezing and decreased breath sounds bilaterally ABDOMEN: Soft, nontender. Normoactive bowel sounds all 4 quadrants. No guarding or rebound. EXTREMITIES: Normal range of motion, no clubbing or edema. Neurovascularly intact NEUROLOGICAL: Alert and oriented x4.Normal gait and speech. Cranial nerves II through XII grossly intact. SKIN: Warm, dry, no laceration, no petechiae, no rashes or lesions. Course Orders Ordered: Discontinued Medications Albuterol (Albuterol 2.5 Mg/3 Ml Neb (Adult)) 5 mg INH NOW ONE Stop: 08/14/24 03:20 Last Admin: 08/14/24 03:32 Dose: 5 mg Albuterol (Albuterol Hfa Prepack) 1 box MISC DIRECTED ONE Stop: 08/14/24 03:54 Last Admin: 08/14/24 03:58 Dose: 1 box Albuterol/Ipratropium (Albuterol/Ipratropium 3 Ml Ampul) 3 ml INH NOW ONE Stop: 08/14/24 02:48 Last Admin: 08/14/24 02:56 Dose: 3 ml Vital Signs Vital signs: Vital Signs - 8 hr 08/14/24 02:23 08/14/24 03:04 Temperature 98.4 F Pulse Rate 101 H 89 Respiratory Rate 25 H Blood Pressure 127/83 Pulse Oximetry 96 93 Oxygen Delivery Method Room Air MDM - SOB/Dyspnea MDM Narrative Medical decision making narrative: Patient is 64-year-old male history of COPD chronic Suboxone use presenting to day with anxiety difficulty breathing. He has been here numerous times with the same had numerous workups. Really not complaining of any sort of chest pain or discomfort. He does have some mild respiratory distress but speaking in full sentences without any sort of difficulty. He was having trouble finding he is medications unclear what he is taking. But states that he has not slept in 11 days due to detoxing from Suboxone. I did offer discussed with him need for detox facility however he declines at this time. He was given DuoNeb and reports significant improvement after treatment. Thinks that this is what is causing his anxiety. He was able to lay down and rest and he felt much better. He was given another albuterol treatment along with prepack of albuterol. He states he is feeling significantly better. Prepack albuterol given he is unsure exactly where his it was. He was very grateful on the way out. Discharge Plan Departure Patient Disposition: Home Clinical Impression: COPD exacerbation Instructions: Chronic Obstructive Pulmonary Disease Activity Restrictions/Additional Instructions: *You have been diagnosed with COPD exacerbation *What to do: Some of your anxiety is definitely related to inability to breathe. Please use your inhaler every 4 hours as needed *Continue to take medications as directed Albuterol 1-2 puffs every 4 hours *Follow up with your primary care provider in 2-3 days or call [phone] *Return to ER if you should have increasing shortness of breath [or] any new, worsening or concerning symptoms Prescriptions: No Action (DME) blood-glucose meter [OneTouch Verio Flex Start] Kit See Rx Instructions .Route Qty: 1 0RF Rx Instructions: As directed (DME) OneTouch Verio test strips Strip See Rx Instructions .Route Qty: 100 0RF Rx Instructions: use to test blood sugar 4x daily, before every meal and at bedtime (DME) lancets [OneTouch UltraSoft 2 Lancet] 30 gauge misc See Rx Instructions .Route Qty: 100 0RF Rx Instructions: use to test blood glucose 4 times daily (DME) Dexcom G7 Sensor Device See Rx Instructions .Route Qty: 1 0RF Rx Instructions: As directed (DME) Dexcom G7 Land Surveying Manager Misc See Rx Instructions .Route Qty: 1 0RF Rx Instructions: As directed (DME) pen needle, diabetic [BD Seda 2nd Gen Pen Needle] 32 gauge x 5/32 needle See Rx Instructions .Route Qty: 100 0RF Rx Instructions: As directed glipizide 2.5 mg tablet extended release 24hr 2.5 mg PO DAILY Qty: 100 3RF Rx Instructions: must take with a meal rosuvastatin [Crestor] 5 mg tablet 5 mg PO DAILY Qty: 90 3RF lisinopril 2.5 mg tablet 2.5 mg PO DAILY Qty: 90 3RF metformin 500 mg tablet extended release 24 hr 1,000 mg PO BID Qty: 360 0RF lorazepam 0.5 mg tablet 0.5 mg PO BID PRN (Reason: anxiety) Qty: 7 0RF Referrals: Alen Staley DO [Primary Care Provider] - Stand Alone Forms: Patient Portal/API/Survey
--- NOTE | 2024-08-14 02:43 | PC.NURSE ---
Patient is speaking in full sentences. Yelling at the staff that he can't find his meds, we don't do anything to help him and he has been here three times this week, and youre not doing shit.
[2024-08-14] MEDS: ALBUTEROL/IPRATROPIUM 3 ML AMPUL INH (02:56)
[2024-08-14 03:04] VITALS: PULSE 89; O2SAT 93
[2024-08-14] MEDS: ALBUTEROL 2.5 MG/3 ML NEB (ADULT) 5 MG INH (03:32)
[2024-08-14] MEDS: ALBUTEROL HFA PREPACK 1 BOX MISC (03:58)
[2024-08-14 04:02] VITALS: BP 108/72; PULSE 103; RESP 20; O2SAT 93
== END 2024-08-14 04:04 | disposition home or self-care (01) ==
PROVIDERS: Emergency Provider Emergency Medicine; PCP Family Medicine
DX: J44.1 Chronic obstructive pulmonary disease with (acute) exacerbation (principal); F41.9 Anxiety disorder, unspecified; F17.210 Nicotine dependence, cigarettes, uncomplicated
CPT/HCPCS: 94640; 99283; J7613

== ENCOUNTER 2024-08-15 04:10 | Emergency (ER) | payer MEDICARE, OTHER, SELFPAY ==
[2024-08-15] VITALS (9 sets, daily range): BP systolic 112–117; BP diastolic 75–84; PULSE 82–110; RESP 20; TEMP 36.3; O2SAT 86–97; BMI 28.0
--- NOTE | 2024-08-15 04:24 | ED_ITS ---
HPI - Psych General Chief Complaint: Psychiatric Symptoms Stated Complaint: hard time breathing Time Seen by Provider: 08/15/24 04:21 Source: patient Mode of arrival: Ambulatory History of Present Illness HPI Narrative: Patient 64-year-old male history of COPD, anxiety, diabetes hypertension presenting to day with shortness of breath. This is his 4th visit some month. He was here last night he immediately felt better after DuoNeb. He took his albuterol inhaler before arrival and says that it just was not working. He also reports not sleeping in the last 13 days he was withdrawing from Suboxone. He is very anxious as well. He feels like he is just can not breathe. No significant cough. Last night he was given albuterol and immediately felt better. He was previously given prescription for lorazepam says that he can not find it. He also reports not being able to find his other medications Related Data Previous Rx's Medication Instructions Recorded blood-glucose meter (OneTouch #1 ea 10/30/23 Verio Flex Start kit) blood sugar diagnostic (OneTouch #100 ea 11/03/23 Verio test strips) pen needle, diabetic 32 gauge x #100 ea 11/05/23/32 (BD Seda 2nd Gen Pen Needle) lancets 30 gauge (OneTouch #100 ea 12/28/23 UltraSoft 2 Lancet) blood-glucose meter,continuous #1 ea 01/29/24 (Dexcom G7 Housekeeping Laundry Worker) blood-glucose sensor (Dexcom G7 #1 ea 01/29/24 Sensor device) glipizide 2.5 mg tablet, extended 2.5 mg PO DAILY diabetes #100 tabs 06/24/24 release 24 hr lisinopril 2.5 mg tablet 2.5 mg PO DAILY #90 tabs 07/07/24 metformin 500 mg tablet,extended 1,000 mg (2 x 500 mg) PO BID 07/07/24 release 24 hr diabetes #360 tabs rosuvastatin 5 mg tablet (Crestor) 5 mg PO DAILY cholesterol #90 tabs 07/07/24 lorazepam 0.5 mg tablet 0.5 mg PO BID PRN anxiety #7 tabs 08/11/24 albuterol sulfate 90 mcg/actuation 2 puff inhalation Q4-6H PRN 08/15/24 aerosol inhaler shortness of breath or wheezing #8.5 grams glipizide 2.5 mg tablet 2.5 mg PO DAILY #30 tabs 08/15/24 hydroxyzine HCl 50 mg tablet 50 mg PO QID PRN anxiety #30 tabs 08/15/24 metformin 500 mg tablet,extended 1,000 mg (2 x 500 mg) PO BID #60 08/15/24 release 24 hr tabs Allergies Allergy/AdvReac Type Severity Reaction Status Date / Time No Known Drug Allergies Allergy Verified 08/11/24 09:53 Patient History Medical History Diabetes type 2, uncontrolled Diabetic foot ulcer Microalbuminuria Normocytic anemia Poor compliance with medication Tobacco dependence Social History household members: none Smoking Status: Current every day smoker alcohol intake: former substance use type: does not use Smoking Status: Current every day smoker alcohol intake frequency: 0-2 drinks per day Exam Initial Vital Signs Initial Vital Signs: Vital Signs Pulse Oximetry 86 L 08/15/24 04:14 GENERAL: Anxious decreased breath sounds bilaterally HEENT: Head atraumatic,EOMI, pupils reactive, face symmetric, moist mucous membranes CARDIOVASCULAR: Regular rate and rhythm without murmurs, rubs or gallops. RESPIRATORY: Tachypnea slight wheezing bilaterally no conversational dyspnea ABDOMEN: Soft, nontender. Normoactive bowel sounds all 4 quadrants. No guarding or rebound. EXTREMITIES: Normal range of motion, no clubbing or edema. Neurovascularly intact NEUROLOGICAL: Alert and oriented x4.Normal gait and speech. Cranial nerves II through XII grossly intact. SKIN: Warm, dry, no laceration, no petechiae, no rashes or lesions. Course Orders Ordered: ED Orders 08/15/24 04:28 XR chest 1V Stat EKG-12 Lead Stat 08/15/24 05:00 BNP [NT-proBNP (BNP-Adult 18+)] Stat Complete Blood Count AUTO DIFF Stat Comprehensive Metabolic Panel Stat Lipase Stat Troponin & CK Cardiac Panel Stat 08/15/24 05:08 Urine Drug Screen, Rapid Stat Discontinued Medications Albuterol (Albuterol 2.5 Mg/3 Ml Neb (Adult)) 2.5 mg INH NOW ONE Stop: 08/15/24 06:03 Last Admin: 08/15/24 06:18 Dose: 2.5 mg Albuterol/Ipratropium (Albuterol/Ipratropium 3 Ml Ampul) 3 ml INH NOW ONE Stop: 08/15/24 04:25 Last Admin: 08/15/24 04:50 Dose: 3 ml Sodium Chloride (Normal Saline 0.9%) 1,000 mls @ 1,000 mls/hr IV BOLUS ONE Stop: 08/15/24 06:25 Last Infusion: 08/15/24 06:29 Dose: Infused Insulin Human Regular (Insulin Regular 100 Unit/Ml 3 Ml Vial) 10 unit SUBCUT NOW ONE Stop: 08/15/24 05:30 Last Admin: 08/15/24 05:55 Dose: 10 unit Metformin HCl (Metformin Xr 500 Mg Tablet) 1,000 mg PO 1700 YESIKA Last Admin: 08/15/24 05:56 Dose: 1,000 mg Methylprednisolone (Methylprednisolone 125 Mg/2 Ml Vial) 125 mg IV NOW ONE Stop: 08/15/24 04:25 Last Admin: 08/15/24 04:56 Dose: 125 mg Vital Signs Vital signs: Vital Signs - 8 hr 08/15/24 04:14 08/15/24 04:15 08/15/24 04:15 Temperature Pulse Rate 110 H Respiratory Rate Blood Pressure 116/80 Pulse Oximetry 86 L 94 Oxygen Delivery Method Oxygen Flow Rate Fraction of Inspired Oxygen 08/15/24 04:18 08/15/24 04:30 08/15/24 04:43 Temperature 97.3 F L Pulse Rate 92 H 98 H Respiratory Rate 20 Blood Pressure 116/80 115/84 Pulse Oximetry 95 94 Oxygen Delivery Method Room Air Oxygen Flow Rate Fraction of Inspired Oxygen 08/15/24 04:43 08/15/24 05:00 08/15/24 05:00 Temperature Pulse Rate 100 H 93 H Respiratory Rate Blood Pressure 112/78 Pulse Oximetry 94 92 Oxygen Delivery Method Oxygen Flow Rate Fraction of Inspired Oxygen 08/15/24 05:30 08/15/24 05:30 08/15/24 06:00 Temperature Pulse Rate 82 84 Respiratory Rate Blood Pressure 117/75 Pulse Oximetry 89 L 91 Oxygen Delivery Method Oxygen Flow Rate Fraction of Inspired Oxygen 08/15/24 06:00 08/15/24 06:20 Temperature Pulse Rate 85 Respiratory Rate 20 Blood Pressure 113/75 Pulse Oximetry 97 Oxygen Delivery Method Nasal Cannula Oxygen Flow Rate 2 Fraction of Inspired Oxygen 28 [facility] - Psych Lab Data 03/17/25 05:00 08/15/24 05:00 Labs: Lab Results 08/15/24 08/15/24 Range/Units 05:00 05:08 WBC 11.5 H (4.5-11.0) X10^3/uL RBC 5.17 (4.5-5.9) X10^6/uL Hgb 15.3 (13.5-17.5) g/dL Hct 45.8 (41-53) % MCV 88.7 (80-100) fL MCH 29.6 (26-34) PG MCHC 33.4 (30-36) % RDW 12.7 (11.6-14.8) % Plt Count 208 (150-400) X10^3/uL Neut % (Auto) 69.4 (50-75) % Lymph % (Auto) 21.8 L (25-40) % [place] % (Auto) 7.5 (3-14) % Eos % (Auto) 0.2 L (2-4) % Baso % (Auto) 1.1 (0-2) % Neut # (Auto) 8000 H (2141-5226) /uL Lymph # (Auto) 2500 (9795-8905) /uL [place] # (Auto) 900 (0-900) /uL Eos # (Auto) 0 (0-450) /uL Baso # (Auto) 100 (0-100) /uL Sodium 127 L (137-145) mmol/L Potassium 4.3 (3.4-5.1) mmol/L Chloride 92 L (98-107) mmol/L Carbon Dioxide 27 (22-32) mmol/L BUN 16 (9-20) mg/dL Creatinine 0.41 L (0.66-1.25) mg/dL Estimated GFR > 60 (>60) mL/min BUN/Creatinine Ratio 39.0 H (6-22) Glucose 613 H* D (80-110) mg/dL Calcium 9.2 (8.4-10.2) mg/dL Total Bilirubin 0.5 (0.2-1.3) mg/dL AST 27 (17-59) IU/L ALT 37 (<50) IU/L Alkaline Phosphatase 289 H D (38-126) U/L Total Creatine Kinase 55 (55-170) U/L Troponin I < 0.012 (0.01-0.034) ng/mL NT-Pro-B Natriuret Pep 105 (<125) pg/mL Total Protein 6.4 (6.3-8.2) g/dL Albumin 4.0 (3.5-5.0) g/dL Globulin 2.4 (1.7-4.1) g/dL Albumin/Globulin Ratio 1.7 (1.0-2.8) Lipase 791 H (23-300) U/L U Opiates 300ng/mL cut Negative (Negative) Ur Oxycodone Screen Negative (Negative) Urine Methadone Screen Negative (Negative) Ur Barbiturates Screen Negative (Negative) U Tricyclic Antidepress Negative (Negative) Ur Phencyclidine Scrn Negative (Negative) Ur Amphetamines Screen Negative (Negative) U Methamphetamines Scrn Negative (Negative) Ur MDMA Scrn (Ecstasy) Negative (Negative) U Benzodiazepines Scrn Negative (Negative) Urine Cocaine Screen Negative (Negative) U Marijuana (THC) Screen Negative (Negative) Urine pH Normal (Normal) Urine Specific [place] Normal (Normal) Ur Creatinine Normal (Normal) Imaging Data Chest x-ray: Radiologist's Impression: No acute findings ECG Data Attestation: I personally reviewed and interpreted this ECG as follows: Prior ECG tracings: available for review Interpretation: Normal sinus rhythm rate 117 ID interval 140 QRS 110 QTC 521 right bundle-branch block noted similar to prior elevated QTC works than previously but otherwise stable MDM Narrative Medical decision making narrative: MDM CC: Shortness of breath anxiety insomnia Complicating co-morbidities: Suboxone use now with draw COPD diabetes hypertension noncompliant Corroborating data: [ ] Data collected from: [ ] Medical records reviewed: ED visits from this month including PCP visit have been reviewed Differential considered: Acute coronary syndrome pneumonia COPD CHF eggs Exam documented above, pertinent findings include: Patient is in no respiratory distress slightly decreased with slight wheezing braces. No peripheral edema Lab Test results independently reviewed as above. Pertinent findings: CBC mild leukocytosis 11.5 Glucose is 613 Sodium is 127 likely secondary to hyperglycemia it does correct 135 Lipase 791 Troponin negative [id number] Independently reviewed EKG as above sinus rhythm Imaging studies independently reviewed: No acute cardiopulmonary process Consultations: [ ] Treatments: Albuterol DuoNeb Solu-Medrol, insulin, metformin normal saline, Reglan Re-evaluations: After 1st do have better Discussion: Patient 64-year-old male history of COPD presenting today with on going shortness of breath COPD exacerbation along with anxiety. He definitely does have improvement with bronchodilator treatments. He was no evidence pneumonia or severe infection. He was found to be quite hyperglycemic. I suspect noncompliance medications. Discussed with him reported of taking all of his meds which he other stairs. He really feels like he just can not breathe and has an anxiety. He was able to finally rest did require 1 L of oxygen while resting. Patient ambulated with pulse ox 95% Discharge Plan Departure Patient Disposition: Home Clinical Impression: COPD (chronic obstructive pulmonary disease), Anxiety, Acute hyperglycemia Instructions: DI for Diabetes Type 2 Activity Restrictions/Additional Instructions: *You have been diagnosed with COPD, hyperglycemia anxiety *What to do: At this time you must take your medications including her diabetes medications *Continue to take medications as directed Hydroxyzine 50mg every 6 hours if needed for anxiety Metformin 1000 mg twice a day Glipizide 2.5 mg of fluids daily *Follow up with your primary care provider in 2-3 days or call [phone] *Return to ER if you should have or any new, worsening or concerning symptoms Prescriptions: New glipizide 2.5 mg tablet 2.5 mg PO DAILY Qty: 30 0RF metformin 500 mg tablet extended release 24 hr 1,000 mg PO BID Qty: 60 0RF hydroxyzine HCl 50 mg tablet 50 mg PO QID PRN (Reason: anxiety) Qty: 30 0RF albuterol sulfate 90 mcg/actuation HFA aerosol inhaler 2 puff INHALATION Q4-6H PRN (Reason: shortness of breath or wheezing) Qty: 8.5 0RF No Action (DME) blood-glucose meter [OneTouch Verio Flex Start] Kit See Rx Instructions .Route Qty: 1 0RF Rx Instructions: As directed (DME) OneTouch Verio test strips Strip See Rx Instructions .Route Qty: 100 0RF Rx Instructions: use to test blood sugar 4x daily, before every meal and at bedtime (DME) lancets [OneTouch UltraSoft 2 Lancet] 30 gauge misc See Rx Instructions .Route Qty: 100 0RF Rx Instructions: use to test blood glucose 4 times daily (DME) Dexcom G7 Sensor Device See Rx Instructions .Route Qty: 1 0RF Rx Instructions: As directed (DME) Dexcom G7 Housekeeping Laundry Worker Misc See Rx Instructions .Route Qty: 1 0RF Rx Instructions: As directed (DME) pen needle, diabetic [BD Seda 2nd Gen Pen Needle] 32 gauge x 5/32 needle See Rx Instructions .Route Qty: 100 0RF Rx Instructions: As directed glipizide 2.5 mg tablet extended release 24hr 2.5 mg PO DAILY Qty: 100 3RF Rx Instructions: must take with a meal rosuvastatin [Crestor] 5 mg tablet 5 mg PO DAILY Qty: 90 3RF lisinopril 2.5 mg tablet 2.5 mg PO DAILY Qty: 90 3RF metformin 500 mg tablet extended release 24 hr 1,000 mg PO BID Qty: 360 0RF lorazepam 0.5 mg tablet 0.5 mg PO BID PRN (Reason: anxiety) Qty: 7 0RF Referrals: Alen Staley DO [Primary Care Provider] - Stand Alone Forms: Patient Portal/API/Survey
--- NOTE | 2024-08-15 04:28 | DI.RAD.S_ITS ---
PROCEDURE: XR CHEST 1V INDICATIONS: short of breath TECHNIQUE: One view of the chest was acquired. COMPARISON: [facility], CR, XR CHEST 1V, 08/09/2024, 19:19. FINDINGS: Surgical changes and devices: None. Lungs and pleura: Lungs are clear. No pleural effusions or pneumothorax. Mediastinum: Mediastinal contours appear normal. Heart size is normal. Bones and chest wall: No suspicious bony lesions. Overlying soft tissues appear unremarkable. IMPRESSION: No acute cardiopulmonary pathology. Dictated by: Dawson Verde M.D. on 08/15/2024 at 8:08 Approved by: Dawson Verde M.D. on 08/15/2024 at 8:08
--- NOTE | 2024-08-15 04:28 | EKG_ITS ---
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
[2024-08-15] MEDS: ALBUTEROL/IPRATROPIUM 3 ML AMPUL INH (04:50)
[2024-08-15] MEDS: methylPREDNISolone 125 MG/2 ML VIAL IV (04:56)
--- NOTE | 2024-08-15 05:11 | PC.NURSE ---
Patient ambulatory to the bathroom
[2024-08-15 05:12] LABS: Basophils Absolute Auto 100 /uL (0-100); Eosinophils Absolute Auto 0 /uL (0-450); Eosinophils Percent Auto 0.2 % (2-4); Hemoglobin 15.3 g/dL (13.5-17.5); Monocytes Absolute Auto 900 /uL (0-900)
[2024-08-15 05:17] LABS: Add Manual Diff / Slide Review NO; Basophils Percent Auto 1.1 % (0-2); Hematocrit 45.8 % (41-53); Lymphocytes Absolute Auto 2500 /uL (1100-4500); Lymphocytes Percent Auto 21.8 % (25-40); Mean Corpuscular HGB Conc 33.4 % (30-36); Mean Corpuscular Hemoglobin 29.6 PG (26-34); Mean Corpuscular Volume 88.7 fL (80-100); Monocytes Percent Auto 7.5 % (3-14); Neutrophils Absolute Auto 8000 /uL (1500-7000); Neutrophils Percent Auto 69.4 % (50-75); Platelet Count 208 X10^3/uL (150-400); Red Blood Cell Count 5.17 X10^6/uL (4.5-5.9); Red Cell Distribution Width 12.7 % (11.6-14.8); White Blood Cell Count 11.5 X10^3/uL (4.5-11.0)
[2024-08-15 05:20] LABS: Ur Creatinine Normal (Normal); Ur Specific Gravity Normal (Normal); Urine Amphetamines Negative (Negative); Urine Barbiturates Negative (Negative); Urine Benzodiazepines Negative (Negative); Urine Cocaine Negative (Negative); Urine MDMA Negative (Negative); Urine Methadone Negative (Negative); Urine Methamphetamines Negative (Negative); Urine Opiates Negative (Negative); Urine Oxycodone Negative (Negative); Urine Phencyclidine Negative (Negative); Urine THC Negative (Negative); Urine Tricyclic Antidepressant Negative (Negative); Urine pH Normal (Normal)
[2024-08-15 05:23] LABS: Alanine Aminotransferase 37 IU/L (<50); Albumin Globulin Ratio 1.7 (1.0-2.8); Alkaline Phosphatase 289 U/L (38-126); Aspartate Aminotransferase 27 IU/L (17-59); Bilirubin Total 0.5 mg/dL (0.2-1.3); Blood Urea Nitrogen 16 mg/dL (9-20); Calcium 9.2 mg/dL (8.4-10.2); Carbon Dioxide 27 mmol/L (22-32); Chloride 92 mmol/L (98-107); Creatine Kinase 55 U/L (55-170); Estimated Glomerular Filt Rate > 60 mL/min (>60); Globulin 2.4 g/dL (1.7-4.1); HEMOLYSIS < 15 (0-50); Lipase 791 U/L (23-300); Potassium 4.3 mmol/L (3.4-5.1); Sodium 127 mmol/L (137-145); Total Protein 6.4 g/dL (6.3-8.2)
[2024-08-15 05:26] LABS: Glucose 613 mg/dL (80-110)
[2024-08-15] MEDS: SODIUM CHLORIDE 0.9% 1,000 ML 1000 ML IV (05:32)
[2024-08-15 05:34] LABS: Troponin I < 0.012 ng/mL (0.01-0.034)
[2024-08-15 05:44] LABS: NT-proBNP (BNP-Adult 18+) 105 pg/mL (<125)
[2024-08-15] MEDS: INSULIN REGULAR 100 UNIT/ML 3 ML VIAL 10 UNIT SUBCUT (05:55)
[2024-08-15] MEDS: METFORMIN XR 500 MG TABLET 1000 MG PO (05:56)
[2024-08-15] MEDS: ALBUTEROL 2.5 MG/3 ML NEB (ADULT) INH (06:18)
--- NOTE | 2024-08-15 06:20 | PC.NURSE ---
1L 02 given to pateint when he sleeps as his 02 is in the high 80's
--- NOTE | 2024-08-15 06:33 | PC.NURSE ---
Patient ambulated around the department with sats of 95%
== END 2024-08-15 06:42 | disposition home or self-care (01) ==
PROVIDERS: Emergency Provider Emergency Medicine; PCP Family Medicine
DX: J44.9 Chronic obstructive pulmonary disease, unspecified (principal); F41.9 Anxiety disorder, unspecified; E11.65 Type 2 diabetes mellitus with hyperglycemia; Z79.84 Long term (current) use of oral hypoglycemic drugs
CPT/HCPCS: 36415; 71045; 80053; 80305; 82550; 83690; 83880; 84484; 85025; 93005; 94640; 96361; 96372; 96374; 99284; 99285; J2919; J7613

== ENCOUNTER → 2024-08-23 10:24 | Outpatient (CLI) | payer MEDICARE, OTHER, SELFPAY ==
--- NOTE | 2024-08-23 10:25 | DI.RAD.S_ITS ---
PROCEDURE: XR FOOT LT MIN 3V INDICATIONS: toe ulcer. ? osteomyelitis TECHNIQUE: 3 views of the foot were acquired. COMPARISON: [facility], CR, XR FOOT LT MIN 3V, 10/30/2023, 10:00. FINDINGS: Bones: No fractures or dislocations. Focal osseous demineralization noted along the medial aspect of the 5th metatarsal head, stable in appearance when compared to 10/30/2023. No suspicious bony lesions. Plantar and retrocalcaneal enthesopathy. Soft tissues: No tibiotalar joint effusion. Achilles tendon appears normal. IMPRESSION: No acute bony abnormality. Stable appearing focal osseous demineralization of the medial aspect of the 5th metatarsal head. Dictated by: Hill Raymond M.D. on 08/24/2024 at 3:30 Approved by: Hill Raymond M.D. on 08/24/2024 at 3:32
[2024-08-23 11:06] LABS: Add Manual Diff / Slide Review NO; Basophils Absolute Auto 0 /uL (0-100); Basophils Percent Auto 0.3 % (0-2); Eosinophils Absolute Auto 0 /uL (0-450); Eosinophils Percent Auto 0.2 % (2-4); Hematocrit 41.9 % (41-53); Hemoglobin 14.3 g/dL (13.5-17.5); Lymphocytes Absolute Auto 800 /uL (1100-4500); Lymphocytes Percent Auto 10.3 % (25-40); Mean Corpuscular HGB Conc 34.1 % (30-36); Mean Corpuscular Hemoglobin 30.3 PG (26-34); Monocytes Absolute Auto 500 /uL (0-900); Monocytes Percent Auto 7.2 % (3-14); Neutrophils Absolute Auto 6100 /uL (1500-7000); Platelet Count 210 X10^3/uL (150-400); Red Cell Distribution Width 12.6 % (11.6-14.8); White Blood Cell Count 7.4 X10^3/uL (4.5-11.0)
[2024-08-23 11:33] LABS: Uric Acid 6.7 mg/dL (3.5-8.5)
[2024-08-23 11:45] LABS: C-Reactive Protein Quant 23.5 mg/dL (<1.0)
[2024-08-23 11:51] LABS: Erythrocyte Sedimentation Rate 61 MM/HR (0-15)
== END ==
PROVIDERS: PCP Family Medicine; Referring Provider Family Medicine; Visit Provider Family Medicine
DX: E11.621 Type 2 diabetes mellitus with foot ulcer (principal); L97.509 Non-pressure chronic ulcer of other part of unspecified foot with unspecified severity
CPT/HCPCS: 36415; 73630; 84550; 85025; 85651; 86140

== ENCOUNTER 2024-08-26 09:32 | Inpatient (IN) | payer MEDICARE, OTHER, SELFPAY ==
[2024-08-26] VITALS (38 sets, daily range): BP systolic 80–142; BP diastolic 46–98; PULSE 87–106; RESP 13–34; TEMP 36.4–36.6; O2SAT 91–98; BMI 27.1; BMI 27.3
--- NOTE | 2024-08-26 10:49 | ED.WOUNDLAC ---
HPI - Wound/Laceration General Chief Complaint: Wound/Laceration Stated Complaint: Hole in left Big toe, sent from Wound care Time Seen by Provider: 08/26/24 10:35 Source: patient Mode of arrival: Ambulatory Related Data Home Medications Medication Instructions Recorded Confirmed bupropion HCl 150 mg tablet,12 hr 150 mg PO BID 08/23/24 08/23/24 sustained-release Previous Rx's Medication Instructions Recorded blood-glucose meter (OneTouch #1 ea 10/30/23 Verio Flex Start kit) blood sugar diagnostic (OneTouch #100 ea 11/03/23 Verio test strips) pen needle, diabetic 32 gauge x #100 ea 11/05/23 (BD Seda 2nd Gen Pen Needle) lancets 30 gauge (OneTouch #100 ea 12/28/23 UltraSoft 2 Lancet) blood-glucose meter,continuous #1 ea 01/29/24 (Dexcom G7 Grain Ii Farmworker) blood-glucose sensor (Dexcom G7 #1 ea 01/29/24 Sensor device) lisinopril 2.5 mg tablet 2.5 mg PO DAILY #90 tabs 07/07/24 lorazepam 0.5 mg tablet 0.5 mg PO BID PRN anxiety #7 tabs 08/11/24 albuterol sulfate 90 mcg/actuation 2 puff inhalation Q4-6H PRN 08/15/24 aerosol inhaler shortness of breath or wheezing #8.5 grams hydroxyzine HCl 50 mg tablet 50 mg PO QID PRN anxiety #30 tabs 08/15/24 colchicine 0.6 mg tablet 0.6 mg PO DAILY #30 tabs 08/23/24 fluticasone propionate 115 2 puff inhalation BID #12 grams 08/23/24 mcg-salmeterol 21 mcg/actuation HFA inhaler (Advair HFA) hydrocodone 5 mg-acetaminophen 325 1 tab PO BEDTIME PRN pain #10 tabs 08/23/24 mg tablet insulin glargine 100 unit/mL (3 10 unit (0.1 mL) SUBCUT QPM #15 mL 08/23/24 mL) subcutaneous pen (Lantus Solostar U-100 Insulin) meloxicam 15 mg tablet 15 mg PO DAILY #30 tabs 08/23/24 metformin 500 mg tablet,extended 1,000 mg (2 x 500 mg) PO BID 08/23/24 release 24 hr diabetes #360 tabs rosuvastatin 20 mg tablet (Crestor) 20 mg PO DAILY #90 tabs 08/23/24 sulfamethoxazole 800 1 tab PO BID 10 days #20 tabs 08/23/24 mg-trimethoprim 160 mg tablet (Bactrim DS) Allergies Allergy/AdvReac Type Severity Reaction Status Date / Time No Known Drug Allergies Allergy Verified 08/26/24 09:50 Patient History Medical History Diabetes type 2, uncontrolled Diabetic foot ulcer Microalbuminuria Normocytic anemia Poor compliance with medication Tobacco dependence Social History household members: none Smoking Status: Current every day smoker alcohol intake: former substance use type: does not use Smoking Status: Current every day smoker alcohol intake frequency: 0-2 drinks per day Exam Initial Vital Signs Initial Vital Signs: Vital Signs Temperature 97.8 F 08/26/24 09:44 Pulse Rate 104 H 08/26/24 09:44 Respiratory Rate 13 08/26/24 09:44 Blood Pressure 105/72 08/26/24 09:44 Pulse Oximetry 94 08/26/24 09:44 Oxygen Delivery Method Room Air 08/26/24 09:44 Course Vital Signs Vital signs: Vital Signs - 8 hr 08/26/24 09:44 08/26/24 09:47 08/26/24 09:47 Temperature 97.8 F Pulse Rate 104 H 103 H Respiratory Rate 13 Blood Pressure 105/72 105/72 Pulse Oximetry 94 94 Oxygen Delivery Method Room Air Discharge Plan Departure Prescriptions: No Action (DME) blood-glucose meter [OneTouch Verio Flex Start] Kit See Rx Instructions .Route Qty: 1 0RF Rx Instructions: As directed (DME) OneTouch Verio test strips Strip See Rx Instructions .Route Qty: 100 0RF Rx Instructions: use to test blood sugar 4x daily, before every meal and at bedtime (DME) lancets [OneTouch UltraSoft 2 Lancet] 30 gauge misc See Rx Instructions .Route Qty: 100 0RF Rx Instructions: use to test blood glucose 4 times daily (DME) Dexcom G7 Sensor Device See Rx Instructions .Route Qty: 1 0RF Rx Instructions: As directed (DME) Dexcom G7 Grain Ii Farmworker Misc See Rx Instructions .Route Qty: 1 0RF Rx Instructions: As directed (DME) pen needle, diabetic [BD Seda 2nd Gen Pen Needle] 32 gauge x 5/32 needle See Rx Instructions .Route Qty: 100 0RF Rx Instructions: As directed lisinopril 2.5 mg tablet 2.5 mg PO DAILY Qty: 90 3RF lorazepam 0.5 mg tablet 0.5 mg PO BID PRN (Reason: anxiety) Qty: 7 0RF bupropion HCl 150 mg tablet sustained-release 12 hr 150 mg PO BID metformin 500 mg tablet extended release 24 hr 1,000 mg PO BID Qty: 360 3RF rosuvastatin [Crestor] 20 mg tablet 20 mg PO DAILY Qty: 90 3RF sulfamethoxazole-trimethoprim [Bactrim DS] 800-160 mg tablet 1 tab PO BID 10 Days Qty: 20 0RF meloxicam 15 mg tablet 15 mg PO DAILY Qty: 30 1RF Rx Instructions: with food colchicine 0.6 mg tablet 0.6 mg PO DAILY Qty: 30 2RF hydrocodone-acetaminophen 5-325 mg tablet 1 tab PO BEDTIME PRN (Reason: pain) Qty: 10 0RF insulin glargine [Lantus Solostar U-100 Insulin] 100 unit/mL (3 mL) insulin pen 10 unit SUBCUT QPM Qty: 15 3RF fluticasone propion-salmeterol [Advair HFA] 115-21 mcg/actuation HFA aerosol inhaler 2 puff inhalation BID Qty: 12 11RF hydroxyzine HCl 50 mg tablet 50 mg PO QID PRN (Reason: anxiety) Qty: 30 0RF albuterol sulfate 90 mcg/actuation HFA aerosol inhaler 2 puff INHALATION Q4-6H PRN (Reason: shortness of breath or wheezing) Qty: 8.5 0RF Referrals: Alen Staley DO [Primary Care Provider] -
--- NOTE | 2024-08-26 10:49 | ED.WOUNDLAC ---
HPI - Wound/Laceration General Chief Complaint: Wound/Laceration Stated Complaint: Hole in left Big toe, sent from Wound care Time Seen by Provider: 08/26/24 10:35 Source: patient Mode of arrival: Ambulatory History of Present Illness HPI narrative: 64-year-old gentleman smoker noncompliant diabetic supposed to be on metformin 1000 mg twice a day arm and Lantus but has not been taking Lantus because he does not know how to dose it correctly. Patient reports left toe big toe infection started couple of weeks ago tried to manage it at home without any significant relief was seen at Wound Care sent over here with concerns that it may need to be amputated and that the infection is getting worse for further evaluation. Other than what is stated 14 point review of system is negative Related Data Home Medications Medication Instructions Recorded Confirmed bupropion HCl 150 mg tablet,12 hr 150 mg PO BID 08/23/24 08/23/24 sustained-release Previous Rx's Medication Instructions Recorded blood-glucose meter (OneTouch #1 ea 10/30/23 Verio Flex Start kit) blood sugar diagnostic (OneTouch #100 ea 11/03/23 Verio test strips) pen needle, diabetic 32 gauge x #100 ea 11/05/23 5/32 (BD Seda 2nd Gen Pen Needle) lancets 30 gauge (OneTouch #100 ea 12/28/23 UltraSoft 2 Lancet) blood-glucose meter,continuous #1 ea 01/29/24 (Dexcom G7 Staffing Manager) blood-glucose sensor (Dexcom G7 #1 ea 01/29/24 Sensor device) lisinopril 2.5 mg tablet 2.5 mg PO DAILY #90 tabs 07/07/24 lorazepam 0.5 mg tablet 0.5 mg PO BID PRN anxiety #7 tabs 08/11/24 albuterol sulfate 90 mcg/actuation 2 puff inhalation Q4-6H PRN 08/15/24 aerosol inhaler shortness of breath or wheezing #8.5 grams hydroxyzine HCl 50 mg tablet 50 mg PO QID PRN anxiety #30 tabs 08/15/24 colchicine 0.6 mg tablet 0.6 mg PO DAILY #30 tabs 08/23/24 fluticasone propionate 115 2 puff inhalation BID #12 grams 08/23/24 mcg-salmeterol 21 mcg/actuation HFA inhaler (Advair HFA) hydrocodone 5 mg-acetaminophen 325 1 tab PO BEDTIME PRN pain #10 tabs 08/23/ mg tablet insulin glargine 100 unit/mL (3 10 unit (0.1 mL) SUBCUT QPM #15 mL 08/23/24 mL) subcutaneous pen (Lantus Solostar U-100 Insulin) meloxicam 15 mg tablet 15 mg PO DAILY #30 tabs 08/23/24 metformin 500 mg tablet,extended 1,000 mg (2 x 500 mg) PO BID 08/23/24 release 24 hr diabetes #360 tabs rosuvastatin 20 mg tablet (Crestor) 20 mg PO DAILY #90 tabs 08/23/24 sulfamethoxazole 800 1 tab PO BID 10 days #20 tabs 08/23/24 mg-trimethoprim 160 mg tablet (Bactrim DS) Allergies Allergy/AdvReac Type Severity Reaction Status Date / Time No Known Drug Allergies Allergy Verified 08/26/24 09:50 Review of Systems Review of Systems ROS Unobtainable: All systems reviewed & are unremarkable except as noted in HPI and below Patient History Medical History Diabetes type 2, uncontrolled Diabetic foot ulcer Microalbuminuria Normocytic anemia Poor compliance with medication Tobacco dependence Social History household members: none Smoking Status: Current every day smoker alcohol intake: former substance use type: does not use Smoking Status: Current every day smoker alcohol intake frequency: 0-2 drinks per day Exam Narrative Exam Narrative: GENERAL: [64] year old patient appears stated age. Well-developed patient, in mild distress. HEAD: Atraumatic. Normocephalic. EYES: Pupils equal round and reactive. Extraocular motions intact. No scleral icterus. No injection or drainage. ENT: Nose without bleeding, purulent drainage. Throat without erythema, tonsillar hypertrophy or exudate. Airway patent. NECK: Trachea midline. Non tender CARDIOVASCULAR: Tachycardic but Regular rate and rhythm without murmurs, gallops, or rubs. RESPIRATORY: Clear to auscultation. Breath sounds equal bilaterally. No wheezes, rales, or rhonchi. GASTROINTESTINAL: Abdomen soft, non-tender, nondistended. EXTREMITIES: No edema or joint tenderness. BACK: Nontender without deformity or crepitance. No flank tenderness. NEURO: AOx3. SKIN: L plantar aspect of 1st toe, diabetic ulcer that tracks deep with q tip into soft tissue. L dorsal aspect of big toe red/warms/swollen over 1st toe with no fluctuance or streaking or seen. +2DP +2PT cap refill <2secs Initial Vital Signs Initial Vital Signs: Vital Signs Temperature 97.8 F 08/26/24 09:44 Pulse Rate 104 H 08/26/24 09:44 Respiratory Rate 13 08/26/24 09:44 Blood Pressure 105/72 08/26/24 09:44 Pulse Oximetry 94 08/26/24 09:44 Oxygen Delivery Method Room Air 08/26/24 09:44 Course Orders Ordered: ED Orders 08/26/24 10:35 Ketones (Beta-Hydroxybutyrate) Stat 08/26/24 10:45 Wound Culture and Gram Stain Stat 08/26/24 10:50 XR chest 1V Stat EKG-12 Lead Stat RT Consult Eval and Treat NOW 08/26/24 10:55 CT LE LT w con Stat CRP [C-Reactive Protein Quant] Stat Complete Blood Count AUTO DIFF Stat Comprehensive Metabolic Panel Stat Lactate (Lactic Acid) Stat Lipase Stat PTT Partial Thromboplastin Romeo Stat Procalcitonin Stat Prothrombin Time INR Stat 08/26/24 11:05 Blood Culture Stat Dextrose (D10w) 100 mls @ 1,200 mls/hr IV PRN PRN PRN Reason: Hypoglycemia Ondansetron HCl (Ondansetron 4 Mg/2 Ml Inj) 4 mg IV NOW PRN PRN Reason: Nausea And Vomiting Ondansetron HCl (Ondansetron 4 Mg Odt) 4 mg SL NOW PRN PRN Reason: Nausea And Vomiting Discontinued Medications Sodium Chloride (Normal Saline 0.9%) 1,000 mls @ 1,000 mls/hr IV BOLUS ONE Stop: 08/26/24 11:49 Last Infusion: 08/26/24 12:20 Dose: Infused Documented By: Admin: 08/26/24 11:29 Dose: 1,000 mls/hr Documented By: RB Vancomycin HCl 1,000 mg/ (Sodium Chloride) 250 mls @ 250 mls/hr IV NOW ONE Stop: 08/26/24 10:55 Last Infusion: 08/26/24 13:42 Dose: Infused Documented By: Admin: 08/26/24 12:24 Dose: 250 mls/hr Documented By: VERA Piperacillin Sod/Tazobactam (Sod 4.5 gm/ Sodium Chloride) 100 mls @ 200 mls/hr IV NOW ONE Stop: 08/26/24 10:55 Last Infusion: 08/26/24 12:21 Dose: Infused Documented By: Admin: 08/26/24 11:28 Dose: 200 mls/hr Documented By: VERA Insulin Human Lispro (Insulin Lispro 100 Unit/Ml 3ml Vial) 10 unit SUBCUT AC [facility] Last Admin: 08/26/24 11:29 Dose: 10 unit Documented By: VERA Co-signed By: ABBE Vital Signs Vital signs: Vital Signs - 8 hr 08/26/24 09:44 08/26/24 09:47 08/26/24 09:47 Temperature 97.8 F Pulse Rate 104 H 103 H Respiratory Rate 13 Blood Pressure 105/72 105/72 Pulse Oximetry 94 94 Oxygen Delivery Method Room Air 08/26/24 10:35 08/26/24 10:36 08/26/24 10:36 Temperature Pulse Rate 104 H 105 H Respiratory Rate Blood Pressure 130/84 Pulse Oximetry 98 96 Oxygen Delivery Method 08/26/24 11:00 08/26/24 11:00 08/26/24 11:10 Temperature Pulse Rate 99 H Respiratory Rate Blood Pressure 124/84 117/84 Pulse Oximetry 95 Oxygen Delivery Method 08/26/24 11:10 08/26/24 11:42 08/26/24 11:43 Temperature Pulse Rate 97 H 98 H Respiratory Rate 28 H 34 H Blood Pressure 142/98 H Pulse Oximetry 94 91 Oxygen Delivery Method 08/26/24 11:43 08/26/24 11:50 08/26/24 11:50 Temperature Pulse Rate 96 H 97 H Respiratory Rate 24 Blood Pressure 132/87 Pulse Oximetry 95 94 Oxygen Delivery Method 08/26/24 12:00 08/26/24 12:01 08/26/24 12:01 Temperature Pulse Rate 92 H 93 H Respiratory Rate Blood Pressure 142/92 H Pulse Oximetry 96 96 Oxygen Delivery Method 08/26/24 12:10 08/26/24 12:10 08/26/24 12:21 Temperature Pulse Rate 91 H 87 Respiratory Rate Blood Pressure 121/74 Pulse Oximetry 96 95 Oxygen Delivery Method 08/26/24 12:21 08/26/24 12:30 08/26/24 12:30 Temperature Pulse Rate 92 H Respiratory Rate Blood Pressure 116/76 121/83 Pulse Oximetry 95 Oxygen Delivery Method 08/26/24 13:00 Temperature Pulse Rate 91 H Respiratory Rate 30 H Blood Pressure Pulse Oximetry 95 Oxygen Delivery Method MDM - Wound/Laceration Lab Data 08/26/24 10:55 08/26/24 10:55 Labs: Lab Results 08/26/24 08/26/24 Range/Units 10:35 10:55 WBC 9.4 (4.5-11.0) X10^3/uL RBC 5.01 (4.5-5.9) X10^6/uL Hgb 14.8 (13.5-17.5) g/dL Hct 44.0 (41-53) % MCV 87.9 (80-100) fL MCH 29.7 (26-34) PG MCHC 33.7 (30-36) % RDW 12.9 (11.6-14.8) % Plt Count 274 (150-400) X10^3/uL Neut % (Auto) Not Reportable Lymph % (Auto) Not Reportable [place] % (Auto) Not Reportable Eos % (Auto) Not Reportable Baso % (Auto) Not Reportable Lymph # (Auto) Not Reportable [place] # (Auto) Not Reportable Baso # (Auto) Not Reportable Total Counted 100 Seg Neutrophils % 63.0 (38-70) % Lymphocytes % (Manual) 25.0 (25-45) % Monocytes % (Manual) 7.0 (2-11) % Eosinophils % (Manual) 1.0 L (2-4) % Basophils % (Manual) 1.0 (0-1) % Metamyelocytes % 3.0 H (-0) % Neutrophils # (Manual) 5922 H (4296-0097) /uL RBC Morphology Norm PT 10.1 (9.4-12.5) SECONDS INR 0.9 (0.9-1.3) APTT 30 (25.1-36.5) SECONDS Sodium 132 L (137-145) mmol/L Potassium 4.7 (3.4-5.1) mmol/L Chloride 97 L (98-107) mmol/L Carbon Dioxide 12 L (22-32) mmol/L BUN 25 H (9-20) mg/dL Creatinine 0.48 L (0.66-1.25) mg/dL Estimated GFR > 60 (>60) mL/min BUN/Creatinine Ratio 52.1 H (6-22) Glucose 425 H (80-110) mg/dL Lactate 0.8 (0.7-2.1) mmol/L Calcium 10.2 (8.4-10.2) mg/dL Total Bilirubin 0.6 (0.2-1.3) mg/dL AST 33 (17-59) IU/L ALT 39 (<50) IU/L Alkaline Phosphatase 190 H (38-126) U/L C-Reactive Protein 5.9 H (<1.0) mg/dL Total Protein 7.2 (6.3-8.2) g/dL Albumin 4.0 (3.5-5.0) g/dL Globulin 3.2 (1.7-4.1) g/dL Albumin/Globulin Ratio 1.3 (1.0-2.8) Lipase 138 (23-300) U/L Procalcitonin 0.790 H (<0.5) ng/mL Ketones 6.70 H (<0.27) mmol/L ECG Data Attestation: I personally reviewed and interpreted this ECG as follows: Interpretation: Sinus Tachycardia RBBB HR [address]-t wave changes Unchanged from 08/15/24 [facility] Narrative Medical decision making narrative: All lab work and imaging studies all reviewed previous and current vital signs med medication list previous ER visits have all been reviewed as well. Patient given 2 L of normal saline along with vancomycin and Zosyn antibiotics and Humalog 10 units IV x1 case discussed with Dr. Gomez the hospitalist who has graciously accepted the patient for admission for cellulitis and hyperglycemia. Differential diagnosis includes osteomyelitis sepsis abscess uncontrolled diabetes Discharge Plan Departure Patient Disposition: Admitted As Inpatient Clinical Impression: Cellulitis Diabetic foot ulcer Qualifiers: Diabetic foot ulcer location: toe Diabetes mellitus type: type 2 Laterality: right Non-pressure ulcer stage: unspecified non-pressure ulcer stage Qualified Code(s): E11.621 - Type 2 diabetes mellitus with foot ulcer Diabetes type 2, uncontrolled Qualifiers: Glycemic state: with hyperglycemia Qualified Code(s): E11.65 - Type 2 diabetes mellitus with hyperglycemia
--- NOTE | 2024-08-26 10:50 | DI.RAD.S_ITS ---
PROCEDURE: XR CHEST 1V INDICATIONS: suspected sepsis TECHNIQUE: One view of the chest was acquired. COMPARISON: [facility], CR, XR CHEST 1V, 08/15/2024, 4:29. [facility], CR, XR CHEST 1V, 08/09/2024, 19:19. FINDINGS: Surgical changes and devices: None. Lungs and pleura: Lungs are clear. No pleural effusions or pneumothorax. Peribronchial cuffing. Mediastinum: Mediastinal contours are normal. Heart size is normal. Bones and chest wall: No suspicious bony abnormalities. Soft tissues appear unremarkable. IMPRESSION: Peribronchial cuffing, typically indicating infectious or inflammatory bronchitis. Dictated by: Mir Tan M.D. on 08/26/2024 at 11:11 Approved by: Mir Tan M.D. on 08/26/2024 at 11:13
--- NOTE | 2024-08-26 10:55 | DI.CT.S_ITS ---
PROCEDURE: CT LE LT W CON INDICATIONS: diabetic foot ulcer left foot TECHNIQUE: After the administration of intravenous contrast, 3 mm axial sections acquired of the left foot with coronal and sagittal reformats. COMPARISON: None. FINDINGS: Image quality: Excellent. Bones: Osteoarthritic changes are noted throughout left foot with joint space narrowing, subchondral sclerosis and subcortical cystic changes more notably involving 1st MTP joint and 1st interphalangeal joint. No acute fracture or dislocation. No gross bony erosion or abnormal periosteal reaction is seen. No suspicious intraosseous lesion. Soft tissues: There is ulceration involving plantar and medial aspect of distal left great toe at the level of 1st interphalangeal joint and 1st distal phalangeal base with significant surrounding soft tissue swelling and small amount of subcutaneous emphysema. No discrete drainable peripherally enhancing fluid collection is identified. No enhancing soft tissue mass is seen. There is no gross full-thickness extensor or flexor tendon rupture. IMPRESSION: 1. Ulceration involving plantar and medial aspect of distal left great toe with significant cellulitis involving forefoot soft tissue. No discrete drainable abscess collection is seen. No enhancing soft tissue mass. No abnormal soft tissue calcifications. 2. Left foot joint osteoarthritis. No fracture or dislocation. No CT evidence of osteomyelitis is seen. No suspicious intraosseous lesion. Dictated by: Dawson Verde M.D. on 08/26/2024 at 11:54 Approved by: Dawson Verde M.D. on 08/26/2024 at 11:58
--- NOTE | 2024-08-26 11:00 | EKG_ITS ---
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
[2024-08-26 11:11] LABS: Hemoglobin 14.8 g/dL (13.5-17.5); Mean Corpuscular HGB Conc 33.7 % (30-36); Mean Corpuscular Hemoglobin 29.7 PG (26-34); Mean Corpuscular Volume 87.9 fL (80-100); Platelet Count 274 X10^3/uL (150-400); Red Blood Cell Count 5.01 X10^6/uL (4.5-5.9); Red Cell Distribution Width 12.9 % (11.6-14.8); White Blood Cell Count 9.4 X10^3/uL (4.5-11.0)
[2024-08-26 11:17] LABS: INR 0.9 (0.9-1.3); Prothrombin Time 10.1 SECONDS (9.4-12.5)
[2024-08-26 11:18] LABS: Add Manual Diff / Slide Review YES
[2024-08-26 11:19] LABS: Lactate (Lactic Acid) 0.8 mmol/L (0.7-2.1); PTT Partial Thromboplastin Tim 30 SECONDS (25.1-36.5)
[2024-08-26 11:20] LABS: Alanine Aminotransferase 39 IU/L (<50); Albumin Globulin Ratio 1.3 (1.0-2.8); Alkaline Phosphatase 190 U/L (38-126); Aspartate Aminotransferase 33 IU/L (17-59); BUN Creatinine Ratio 52.1 (6-22); Bilirubin Total 0.6 mg/dL (0.2-1.3); Blood Urea Nitrogen 25 mg/dL (9-20); Calcium 10.2 mg/dL (8.4-10.2); Carbon Dioxide 12 mmol/L (22-32); Chloride 97 mmol/L (98-107); Estimated Glomerular Filt Rate > 60 mL/min (>60); Globulin 3.2 g/dL (1.7-4.1); Glucose 425 mg/dL (80-110); HEMOLYSIS 17 (0-50); Lipase 138 U/L (23-300); Potassium 4.7 mmol/L (3.4-5.1); Sodium 132 mmol/L (137-145); Total Protein 7.2 g/dL (6.3-8.2)
[2024-08-26] MEDS: PIPERACILLIN/TAZO 4.5 GM in SODIUM CHLORIDE 0.9% 100 ML IV (11:28)
[2024-08-26] MEDS: SODIUM CHLORIDE 0.9% 1,000 ML 1000 ML IV (11:29)
[2024-08-26] MEDS: INSULIN LISPRO 100 UNIT/ML 3ML VIAL 10 UNIT SUBCUT ×2 (11:29→14:34)
--- NOTE | 2024-08-26 11:32 | PC.NURSE ---
Provider only wanted a single order of 10 units humalog and not one every meal. This RN administered the 10 units and then stopped the remaining future orders per provider order.
[2024-08-26 11:51] LABS: Neutrophils Absolute Manual 5922 /uL (3000-5900); Total Cells Counted 100
[2024-08-26 11:52] LABS: RBC Morphology Norm
[2024-08-26 11:58] LABS: C-Reactive Protein Quant 5.9 mg/dL (<1.0)
[2024-08-26] MEDS: VANCOMYCIN 1,000 MG in SODIUM CHLORIDE 0.9% 250 ML 250 MG IV (12:24)
[2024-08-26] MEDS: SODIUM CHLORIDE 0.9% 1,000 ML 100 ML IV (14:37)
[2024-08-26] MEDS: PIPERACILLIN/TAZO 3.375 GM in SODIUM CHLORIDE 0.9% 100 ML IV ×2 (15:22→21:41)
[2024-08-26] MEDS: INSULIN GLARGINE 100 UNIT/ML 3ML PEN 20 UNIT SUBCUT (15:50)
--- NOTE | 2024-08-26 16:12 | PC.NURSE ---
This RN gave patient vial of humalog and lantus pen that are both labeled to the acute care nurse Zohra Castellanos RN
[2024-08-26] MEDS: INSULIN LISPRO 100 UNIT/ML 3ML VIAL SUBCUT ×2 (16:48→21:27)
[2024-08-26] MEDS: VANCOMYCIN 1,250 MG/250 ML PIGGYBACK 250 MG IV (20:20)
--- NOTE | 2024-08-26 20:54 | PM.HP.1 ---
History of Present Illness History of Present Illness Chief complaint: Hole in left Big toe, sent from Wound care Narrative: 64-year-old male history of diabetes, hypertension, tobacco dependence (40 pack year), COPD with recent exacerbation earlier this month remote alcohol dependence, history of opiate dependence with recent Suboxone withdrawal (was on maintenance for 3 years, but weaned off after moving from [place] to this area with no outpatient provider to follow-up with), history of right foot osteomyelitis, who presented to the emergency department with complaints of a foot wound. He was seen in his primary care clinic on the and reported at that time that he had had a ?hole in his left great toe for 2-3 weeks. He had been trying to address it on his own at home. He was taking metformin but not glipizide. He was also on prednisone for his COPD exacerbation. Blood sugars 1 week prior to his visit was 613. His last hemoglobin A1c in June of this year was 13.4%. During his visit with his PCP, he was advised to increase metformin to a 1000 mg twice daily as well as to start Lantus 10 units nightly. He was referred to Wound Care. He was also given Bactrim and advised to follow-up in 1 week. Today, he was sent from Wound Care for further assessment of his foot wound. In the ED, he was afebrile, mildly tachycardic, had normal blood pressure and oxygen saturations. CBC was within normal limits. Chemistry panel revealed a bicarb of 12, BUN 25, creatinine 0.48, glucose of 425. Procalcitonin was 0.79 ketones were 6.7. Blood cultures and wound cultures were taken. CT scan revealed ulceration involving the plantar and medial aspect of the distal left great toe with significant cellulitis involving the forefoot soft tissue. No discrete drainable abscess. The left foot joint revealed osteoarthritis without fracture or dislocation. No osteomyelitis was seen. Chest x-ray revealed peribronchial cuffing typically indicative of infectious or inflammatory bronchitis. Currently, patient reports some tenderness to the left great toe and surrounding tissues. No drainage. He has not had any fevers. He is pleased that his blood sugars are improved here compared to the blood sugar levels he was getting at home. He states he did get a Lantus Solostar pen but did not know how to use it and was unable to give himself insulin. [facility] Medical History Diabetes type 2, uncontrolled Diabetic foot ulcer Microalbuminuria Normocytic anemia Poor compliance with medication Tobacco dependence Social History household members: none Smoking Status: Current every day smoker alcohol intake: former substance use type: does not use Meds Home Medications and Allergies Home Medications Medication Instructions Recorded Confirmed Type blood-glucose meter (OneTouch #1 ea 10/30/23 08/26/24 Rx Verio Flex Start kit) blood sugar diagnostic (OneTouch #100 ea 11/03/23 08/26/24 Rx Verio test strips) pen needle, diabetic 32 gauge x #100 ea 11/05/23 08/23/24 Rx 5/32 (BD Seda 2nd Gen Pen Needle) lancets 30 gauge (OneTouch #100 ea 12/28/23 08/23/24 Rx UltraSoft 2 Lancet) blood-glucose meter,continuous #1 ea 01/29/24 08/23/24 Rx (Dexcom G7 Behavior Interventionist) blood-glucose sensor (Dexcom G7 #1 ea 01/29/24 08/23/24 Rx Sensor device) lisinopril 2.5 mg tablet 2.5 mg PO DAILY #90 tabs 07/07/24 08/23/24 Rx lorazepam 0.5 mg tablet 0.5 mg PO BID PRN anxiety #7 tabs 08/11/24 08/23/24 Rx albuterol sulfate 90 mcg/actuation 2 puff inhalation Q4-6H PRN 08/15/24 08/23/24 Rx aerosol inhaler shortness of breath or wheezing #8.5 grams hydroxyzine HCl 50 mg tablet 50 mg PO QID PRN anxiety #30 tabs 08/15/24 08/23/24 Rx bupropion HCl 150 mg tablet,12 hr 150 mg PO BID 08/23/24 08/23/24 History sustained-release colchicine 0.6 mg tablet 0.6 mg PO DAILY #30 tabs 08/23/24 08/23/24 Rx fluticasone propionate 115 2 puff inhalation BID #12 grams 08/23/24 08/23/24 Rx mcg-salmeterol 21 mcg/actuation HFA inhaler (Advair HFA) hydrocodone 5 mg-acetaminophen 325 1 tab PO BEDTIME PRN pain #10 tabs 08/23/24 08/23/24 Rx mg tablet insulin glargine 100 unit/mL (3 10 unit (0.1 mL) SUBCUT QPM #15 mL 08/23/24 08/23/24 Rx mL) subcutaneous pen (Lantus Solostar U-100 Insulin) meloxicam 15 mg tablet 15 mg PO DAILY #30 tabs 08/23/24 08/26/24 Rx metformin 500 mg tablet,extended 1,000 mg (2 x 500 mg) PO BID 08/23/24 08/26/24 Rx release 24 hr diabetes #360 tabs rosuvastatin 20 mg tablet (Crestor) 20 mg PO DAILY #90 tabs 08/23/24 08/26/24 Rx sulfamethoxazole 800 1 tab PO BID 10 days #20 tabs 08/23/24 08/26/24 Rx mg-trimethoprim 160 mg tablet (Bactrim DS) Allergies Allergy/AdvReac Type Severity Reaction Status Date / Time No Known Drug Allergies Allergy Verified 08/26/24 09:50 Review of Systems Review of Systems Narrative: All other systems were reviewed negative Exam Vital Signs (past 8 hours): - 08/26/24 13:00 08/26/24 13:30 08/26/24 13:32 Temperature Pulse Rate 91 H 103 H 103 H Respiratory Rate 30 H 16 23 Blood Pressure Pulse Oximetry 95 97 97 Oxygen Flow Rate 08/26/24 13:32 08/26/24 13:40 08/26/24 13:40 Temperature Pulse Rate 97 H Respiratory Rate 31 H Blood Pressure 114/75 119/76 Pulse Oximetry Oxygen Flow Rate 08/26/24 14:00 08/26/24 14:01 08/26/24 14:01 Temperature Pulse Rate 94 H 93 H Respiratory Rate Blood Pressure 80/52 L Pulse Oximetry 97 94 Oxygen Flow Rate 08/26/24 14:02 08/26/24 14:02 08/26/24 14:09 Temperature Pulse Rate 95 H Respiratory Rate Blood Pressure 85/46 L 120/67 Pulse Oximetry 94 Oxygen Flow Rate 08/26/24 14:09 08/26/24 14:10 08/26/24 14:10 Temperature Pulse Rate 98 H 96 H Respiratory Rate Blood Pressure 96/63 Pulse Oximetry 95 95 Oxygen Flow Rate 08/26/24 14:20 08/26/24 14:24 08/26/24 14:24 Temperature Pulse Rate 90 95 H Respiratory Rate 21 Blood Pressure 106/65 Pulse Oximetry 94 Oxygen Flow Rate 08/26/24 14:30 08/26/24 14:31 08/26/24 14:31 Temperature Pulse Rate 98 H 97 H Respiratory Rate Blood Pressure 101/72 Pulse Oximetry 97 95 Oxygen Flow Rate 08/26/24 14:40 08/26/24 14:40 08/26/24 14:50 Temperature Pulse Rate 96 H Respiratory Rate Blood Pressure 119/75 108/70 Pulse Oximetry 95 Oxygen Flow Rate 08/26/24 14:50 08/26/24 15:00 08/26/24 15:01 Temperature Pulse Rate 100 H 106 H 97 H Respiratory Rate Blood Pressure Pulse Oximetry 96 96 94 Oxygen Flow Rate 08/26/24 15:01 08/26/24 15:11 08/26/24 15:11 Temperature Pulse Rate 100 H Respiratory Rate Blood Pressure 102/86 99/65 Pulse Oximetry 96 Oxygen Flow Rate 08/26/24 15:20 08/26/24 15:20 08/26/24 15:30 Temperature Pulse Rate 98 H Respiratory Rate Blood Pressure 113/74 111/75 Pulse Oximetry 95 Oxygen Flow Rate 08/26/24 15:30 08/26/24 15:40 08/26/24 15:40 Temperature Pulse Rate 98 H 99 H Respiratory Rate 34 H Blood Pressure 112/77 Pulse Oximetry 96 94 Oxygen Flow Rate 08/26/24 15:50 08/26/24 15:50 08/26/24 16:00 Temperature 97.5 F L Pulse Rate 97 H 95 H Respiratory Rate 16 Blood Pressure 105/71 119/73 Pulse Oximetry 94 96 Oxygen Flow Rate 0 08/26/24 20:37 Temperature 97.6 F Pulse Rate 88 Respiratory Rate 19 Blood Pressure 130/72 Pulse Oximetry 96 Oxygen Flow Rate 0 Oxygen Delivery Method Room Air Oxygen Flow Rate 0 Narrative Exam Narrative: GEN: Middle-aged male, Alert and oriented x3, no acute distress HEENT: Normocephalic, face symmetric, pupils equal round reactive to light, extraocular movements intact, sclerae anicteric, conjunctiva clear, nares patent, oropharynx reveals an intact soft and hard palate with moist mucous membranes, dentition is fair NECK: Supple, no lymphadenopathy, thyroid without enlargement or nodularity, carotids no bruits CHEST: Respiratory excursions symmetric, clear to auscultation bilaterally CV: Mildly tachycardic with regular rhythm, no murmurs, rubs, gallops, PMI nondisplaced ABD: Soft, nontender, nondistended, bowel sounds present in all 4 quadrants, no organomegaly or masses appreciated EXTR: Warm, well perfused, no clubbing/cyanosis, left foot reveals some moderate erythema and swelling dorsally, the great toe hills distal toe ulcer with surrounding intact skin with what appears to have been a depressed area that previously had fluid in it that has since drained. SKIN: Warm and dry, without rash NEURO: Alert and oriented x3, cranial nerves 2 through 12 are intact and symmetric bilaterally, motor strength 5/5 throughout, sensation intact throughout PSYCH: Mood and affect is within normal limits, judgment and insight are appropriate Objective Labs 08/26/24 10:55 08/26/24 10:55 Labs: Laboratory Results - last 24 hr 08/26/24 08/26/24 10:35 10:55 WBC 9.4 RBC 5.01 Hgb 14.8 Hct 44.0 MCV 87.9 MCH 29.7 MCHC 33.7 RDW 12.9 Plt Count 274 Neut % (Auto) Not Reportable Lymph % (Auto) Not Reportable [place] % (Auto) Not Reportable Eos % (Auto) Not Reportable Baso % (Auto) Not Reportable Lymph # (Auto) Not Reportable [place] # (Auto) Not Reportable Baso # (Auto) Not Reportable Total Counted 100 Seg Neutrophils % 63.0 Lymphocytes % (Manual) 25.0 Monocytes % (Manual) 7.0 Eosinophils % (Manual) 1.0 L Basophils % (Manual) 1.0 Metamyelocytes % 3.0 H Neutrophils # (Manual) 5922 H RBC Morphology Norm PT 10.1 INR 0.9 APTT 30 Sodium 132 L Potassium 4.7 Chloride 97 L Carbon Dioxide 12 L BUN 25 H Creatinine 0.48 L Estimated GFR > 60 BUN/Creatinine Ratio 52.1 H Glucose 425 H Lactate 0.8 Calcium 10.2 Total Bilirubin 0.6 AST 33 ALT 39 Alkaline Phosphatase 190 H C-Reactive Protein 5.9 H Total Protein 7.2 Albumin 4.0 Globulin 3.2 Albumin/Globulin Ratio 1.3 Lipase 138 Procalcitonin 0.790 H Ketones 6.70 H Assessment & Plan Assessment & Plan narrative: 1. Diabetic foot ulcer and cellulitis to the left great toe Patient is admitted to the inpatient unit for ongoing treatment, including antibiotics (Zosyn and vancomycin), leg elevation, and monitoring. Fortunately, he has no evidence of osteomyelitis at this time. Will work on improving glycemic control, monitor cellulitis. 2. Uncontrolled diabetes Will place on Lantus 20 units daily along with sliding scale insulin. Place on a controlled carb diet. Continue metformin. 3. Tobacco dependence Nicotine patch as needed 4. Metabolic acidosis We will place on IV fluids, work on glycemic control, and monitor. We will recheck a BMP to ensure his bicarb is improving with fluid resuscitation. 5. History of opioid dependence He recently weaned himself off Suboxone. Oxycodone is available as needed. Code status Full Prophylaxis Lovenox Disposition Admit to acute care inpatient status Time-Based Coding :: [TOTAL MINUTES] spent with patient and on the chart (including review of chart, obtaining history, exam, reviewing outside data, placing orders, documenting exam and treatment plan, and counseling patient) on [DATE]. Quality VTE Deep Vein Thrombosis/Pulmonary Embolism Present on Admission: No
[2024-08-26] MEDS: ZOLPIDEM 5 MG TABLET PO (21:25)
[2024-08-27] MEDS: SODIUM CHLORIDE 0.9% 1,000 ML 100 ML IV (00:34)
[2024-08-27] MEDS: ACETAMINOPHEN 325 MG TABLET 650 MG PO ×4 (00:37→21:38)
[2024-08-27] MEDS: OXYCODONE IR 5 MG TABLET PO ×7 (00:37→21:38)
[2024-08-27 03:49] VITALS: BP 138/72; PULSE 74; RESP 19; TEMP 36.7; O2SAT 96
[2024-08-27] MEDS: VANCOMYCIN 1,250 MG/250 ML PIGGYBACK 250 MG IV ×3 (04:52→21:38)
[2024-08-27] MEDS: PIPERACILLIN/TAZO 3.375 GM in SODIUM CHLORIDE 0.9% 100 ML IV ×3 (06:05→23:26)
[2024-08-27 06:47] LABS: Add Manual Diff / Slide Review NO; Basophils Absolute Auto 0 /uL (0-100); Basophils Percent Auto 0.5 % (0-2); Eosinophils Absolute Auto 0 /uL (0-450); Eosinophils Percent Auto 0.2 % (2-4); Hematocrit 39.7 % (41-53); Hemoglobin 13.5 g/dL (13.5-17.5); Lymphocytes Absolute Auto 2500 /uL (1100-4500); Lymphocytes Percent Auto 27.4 % (25-40); Mean Corpuscular Hemoglobin 29.7 PG (26-34); Mean Corpuscular Volume 87.4 fL (80-100); Monocytes Absolute Auto 800 /uL (0-900); Monocytes Percent Auto 8.7 % (3-14); Neutrophils Absolute Auto 5800 /uL (1500-7000); Neutrophils Percent Auto 63.2 % (50-75); Platelet Count 263 X10^3/uL (150-400); Red Blood Cell Count 4.54 X10^6/uL (4.5-5.9); Red Cell Distribution Width 12.7 % (11.6-14.8); White Blood Cell Count 9.2 X10^3/uL (4.5-11.0)
[2024-08-27 07:26] LABS: BUN Creatinine Ratio 33.3 (6-22); Blood Urea Nitrogen 15 mg/dL (9-20); Calcium 8.2 mg/dL (8.4-10.2); Carbon Dioxide 21 mmol/L (22-32); Chloride 104 mmol/L (98-107); Estimated Glomerular Filt Rate > 60 mL/min (>60); Glucose 273 mg/dL (80-110); HEMOLYSIS < 15 (0-50); Potassium 3.8 mmol/L (3.4-5.1); Sodium 135 mmol/L (137-145)
[2024-08-27 08:00] VITALS: BP 117/71; PULSE 79; RESP 16; TEMP 36.7; O2SAT 98
[2024-08-27] MEDS: ENOXAPARIN 40 MG/0.4 ML SYRINGE SUBCUT (08:16)
[2024-08-27] MEDS: INSULIN LISPRO 100 UNIT/ML 3ML VIAL SUBCUT ×5 (08:16→21:57)
[2024-08-27] MEDS: INSULIN GLARGINE 100 UNIT/ML 3ML PEN 20 UNIT SUBCUT (08:16)
[2024-08-27 10:48] LABS: BUN Creatinine Ratio 33.3 (6-22); Blood Urea Nitrogen 15 mg/dL (9-20); Calcium 8.1 mg/dL (8.4-10.2); Carbon Dioxide 21 mmol/L (22-32); Chloride 104 mmol/L (98-107); Estimated Glomerular Filt Rate > 60 mL/min (>60); Glucose 274 mg/dL (80-110); HEMOLYSIS < 15 (0-50); Potassium 3.9 mmol/L (3.4-5.1); Sodium 134 mmol/L (137-145)
[2024-08-27 15:00] VITALS: BP 110/79; PULSE 91; RESP 16; TEMP 36.7; O2SAT 96
--- NOTE | 2024-08-27 16:06 | CM.DANOTE ---
IInitial DCP Assessment Visit Note Reviewed EMR and team rounds for patient's medical status and updates. Met with patient at bedside to introduce self and role. Patient was found to be alert and oriented. Patient was calm and cooperative during our conversation. Patient lives in his own apartment. He is fully independent with self care and ADLs. He does use a walking caneoccasionallyl. He typically transports himself by private vehicle. Plan is to return back home after leaving the hospital. Payor: Medicare PCP: Dr Staley Patient is a 64 year old male who presented to the ER on 08/26/24 for a left great toe infection. Patient has uncontrolled diabetes. He is currently on IV antibiotics and has started insulin to improve blood sugar control. Patient is a smoker, he has cut back but has not been able to stop. Patient feels motivated to return back to his home after this hospitalization. . DCP will continue to monitor for any evolving needs in relation to discharging home. Discharge Planning/Care Management CM Discharge Assessment Start: 08/27/24 16:01 Freq: Status: Active Protocol: Document 08/27/24 16:01 GERALDINE (Rec: 08/27/24 16:06 GERALDINE [id number]) Discharge Planning Assessment Assigned Telephone Answerer Anibal Roberts RN DPOA/Assigned Designee Name Lori Jasmine (mother) Contact Information [phone] Advance Directives? No Advance Directives on File No History Provided By Patient,Medical Record Expected Length of Stay 3 Has Patient been admitted in last 30 No days? Prior Living Arrangements Apartment/Condo Household Members none Type of transporation used prior to Drives own vehicle admit Independent with ADL's Yes Is patient alert and oriented? Yes Caregiver for Another No Comment Patient reported that he is a [facility] [employer] Member DME Already Rented / Owned Cane Barriers to Discharge No Discharge Plan Home Transportation Arrangement Self transport Referrals Initiated None needed Inpatient Status as of 08/26/24 Whiteboard Updated in Patient Room with Yes name and ext. # of Telephone Answerer Review Status In Process Please Provide Date Initial DC 08/27/24 Assessment Was Performed
[2024-08-27] MEDS: INSULIN GLARGINE 100 UNIT/ML 3ML PEN SUBCUT (16:50)
--- NOTE | 2024-08-27 18:48 | PM.PN.1 ---
Subjective Subjective Interval history: 64-year-old male history of diabetes, hypertension, tobacco dependence (40 pack year), COPD with recent exacerbation earlier this month remote alcohol dependence, history of opiate dependence with recent Suboxone withdrawal (was on maintenance for 3 years, but weaned off after moving from [place] to this area with no outpatient provider to follow-up with), history of right foot osteomyelitis, who was admitted last night w/cellulitis and a L foot/toe diabetic ulcer. He reports improved pain and redness today. He notes his dorsal foot is less red/swollen today. He continues to have difficulty walking to the bathroom d/t pain in the foot. Denies any other new c/o Exam Vital Signs (past 8 hours): - 08/27/24 15:00 Temperature 98.0 F Pulse Rate 91 H Respiratory Rate 16 Blood Pressure 110/79 Pulse Oximetry 96 Oxygen Flow Rate 0 Oxygen Delivery Method Room Air Oxygen Flow Rate 0 Narrative Exam Narrative: GEN: Middle-aged male, Alert and oriented x3, no acute distress HEENT: Normocephalic, face symmetric CHEST: Respiratory excursions symmetric, clear to auscultation bilaterally CV: RRR, no murmurs, rubs, gallops, PMI nondisplaced ABD: Soft, nontender, nondistended, bowel sounds present in all 4 quadrants, no organomegaly or masses appreciated EXTR: Warm, well perfused, no clubbing/cyanosis, left foot reveals decreased erythema and swelling dorsally, the great toe callous and ulcer appear unchanged, there is erythema and swelling around the paronychia and ongoing discomfort but no obvious abscess, old blister/abscess skin remains intact on dorsal toe SKIN: Warm and dry, without rash NEURO: Alert and oriented x3, non focal Objective Labs 08/27/24 05:50 08/27/24 05:50 Labs: Laboratory Results - last 24 hr 08/27/24 08/27/24 08/27/24 05:50 05:50 05:50 WBC 9.2 RBC 4.54 Hgb 13.5 Hct 39.7 L MCV 87.4 MCH 29.7 MCHC 34.0 RDW 12.7 Plt Count 263 Neut % (Auto) 63.2 Lymph % (Auto) 27.4 [place] % (Auto) 8.7 Eos % (Auto) 0.2 L Baso % (Auto) 0.5 Neut # (Auto) 5800 Lymph # (Auto) 2500 [place] # (Auto) 800 Eos # (Auto) 0 Baso # (Auto) 0 Sodium 134 L 135 L Potassium 3.9 3.8 Chloride 104 Carbon Dioxide BUN Creatinine Estimated GFR BUN/Creatinine Ratio Glucose Calcium 08/27/24 08/27/24 08/27/24 05:50 05:50 05:50 WBC RBC Hgb Hct MCV MCH MCHC RDW Plt Count Neut % (Auto) Lymph % (Auto) [place] % (Auto) Eos % (Auto) Baso % (Auto) Neut # (Auto) Lymph # (Auto) [place] # (Auto) Eos # (Auto) Baso # (Auto) Sodium Potassium Chloride 104 Carbon Dioxide 21 L 21 L BUN 15 15 Creatinine 0.45 L Estimated GFR BUN/Creatinine Ratio Glucose Calcium 08/27/24 08/27/24 08/27/24 05:50 05:50 05:50 WBC RBC Hgb Hct MCV MCH MCHC RDW Plt Count Neut % (Auto) Lymph % (Auto) [place] % (Auto) Eos % (Auto) Baso % (Auto) Neut # (Auto) Lymph # (Auto) [place] # (Auto) Eos # (Auto) Baso # (Auto) Sodium Potassium Chloride Carbon Dioxide BUN Creatinine 0.45 L Estimated GFR > 60 > 60 BUN/Creatinine Ratio 33.3 H 33.3 H Glucose 274 H D Calcium 08/27/24 08/27/24 05:50 05:50 WBC RBC Hgb Hct MCV MCH MCHC RDW Plt Count Neut % (Auto) Lymph % (Auto) [place] % (Auto) Eos % (Auto) Baso % (Auto) Neut # (Auto) Lymph # (Auto) [place] # (Auto) Eos # (Auto) Baso # (Auto) Sodium Potassium Chloride Carbon Dioxide BUN Creatinine Estimated GFR BUN/Creatinine Ratio Glucose 273 H Calcium 8.1 L 8.2 L [facility] Medical History Diabetes type 2, uncontrolled Diabetic foot ulcer Microalbuminuria Normocytic anemia Poor compliance with medication Tobacco dependence Social History household members: none Smoking Status: Current every day smoker alcohol intake: former substance use type: does not use Assessment & Plan Assessment & Plan narrative: 1. Diabetic foot ulcer and cellulitis to the left great toe Improving since admit. Continue Zosyn/vanc. CT negative for osteo. Will send MRSA screen and dc vanc if negative. 2. Uncontrolled diabetes Overall BGs are improved and down to the 200s - 300s. Continue Lantus 20 units daily /SSI/CC diet/metformin. 3. Tobacco dependence Nicotine patch as needed 4. Metabolic acidosis Improved w/hydration and improved glycemic control. 5. History of opioid dependence He recently weaned himself off Suboxone. Oxycodone is available as needed. Code status Full Prophylaxis Lovenox Disposition Pending. Time-Based Coding :: [TOTAL MINUTES] spent with patient and on the chart (including review of chart, obtaining history, exam, reviewing outside data, placing orders, documenting exam and treatment plan, and counseling patient) on [DATE]. Quality VTE Deep Vein Thrombosis/Pulmonary Embolism Present on Admission: No
[2024-08-27] MEDS: VANCOMYCIN TROUGH 1 REQUEST MISC (19:30)
[2024-08-27 20:00] VITALS: BP 113/76; PULSE 94; RESP 20; TEMP 36.2; O2SAT 93
[2024-08-27 20:09] LABS: Vancomycin Trough 8.7 ug/mL (10-20)
[2024-08-27] MEDS: ZOLPIDEM 5 MG TABLET PO (21:38)
[2024-08-28 00:19] LABS: MRSA (Nasal) PCR NOT DETECTED (Not Detect)
[2024-08-28 00:38] VITALS: BP 114/68; PULSE 93; RESP 18; TEMP 36.4; O2SAT 93
[2024-08-28] MEDS: OXYCODONE IR 5 MG TABLET PO ×4 (00:43→09:41)
[2024-08-28] MEDS: ACETAMINOPHEN 325 MG TABLET 650 MG PO ×2 (03:37→09:41)
[2024-08-28] MEDS: VANCOMYCIN 1,250 MG/250 ML PIGGYBACK 250 MG IV (03:37)
[2024-08-28 05:24] LABS: Add Manual Diff / Slide Review NO; Basophils Absolute Auto 0 /uL (0-100); Basophils Percent Auto 0.4 % (0-2); Eosinophils Absolute Auto 100 /uL (0-450); Eosinophils Percent Auto 0.6 % (2-4); Hematocrit 40.6 % (41-53); Hemoglobin 13.6 g/dL (13.5-17.5); Lymphocytes Absolute Auto 2200 /uL (1100-4500); Lymphocytes Percent Auto 26.3 % (25-40); Mean Corpuscular HGB Conc 33.6 % (30-36); Mean Corpuscular Hemoglobin 29.4 PG (26-34); Mean Corpuscular Volume 87.6 fL (80-100); Monocytes Absolute Auto 800 /uL (0-900); Monocytes Percent Auto 9.3 % (3-14); Neutrophils Absolute Auto 5300 /uL (1500-7000); Neutrophils Percent Auto 63.4 % (50-75); Platelet Count 281 X10^3/uL (150-400); Red Blood Cell Count 4.64 X10^6/uL (4.5-5.9); White Blood Cell Count 8.4 X10^3/uL (4.5-11.0)
[2024-08-28 05:37] LABS: BUN Creatinine Ratio 35.7 (6-22); Blood Urea Nitrogen 15 mg/dL (9-20); Calcium 8.4 mg/dL (8.4-10.2); Carbon Dioxide 23 mmol/L (22-32); Chloride 107 mmol/L (98-107); Estimated Glomerular Filt Rate > 60 mL/min (>60); Glucose 264 mg/dL (80-110); HEMOLYSIS < 15 (0-50); Potassium 3.8 mmol/L (3.4-5.1); Sodium 136 mmol/L (137-145)
[2024-08-28] MEDS: PIPERACILLIN/TAZO 3.375 GM in SODIUM CHLORIDE 0.9% 100 ML IV (06:07)
--- NOTE | 2024-08-28 07:55 | PM.PN.1 ---
Subjective Subjective Interval history: Summary: 64-year-old male history of diabetes, hypertension, tobacco dependence (40 pack year), COPD with recent exacerbation earlier this month remote alcohol dependence, history of opiate dependence with recent Suboxone withdrawal (was on maintenance for 3 years, but weaned off after moving from [place] to this area with no outpatient provider to follow-up with), history of right foot osteomyelitis, who was admitted last night w/cellulitis and a L foot/toe diabetic ulcer. S: He was having a lot of pain associated with the toe. He was a large ulceration which is through the skin on the bottom of the toe as well as an area of skin paleness and tenting on the lateral and top aspect of the toe. He was a good peripheral Pulse. Exam Vital Signs (past 8 hours): - 08/28/24 00:38 Temperature 97.6 F Pulse Rate 93 H Respiratory Rate 18 Blood Pressure 114/68 Pulse Oximetry 93 Oxygen Delivery Method Room Air Oxygen Flow Rate 0 Narrative Exam Narrative: NAD, alert and oriented. Fluent speech. Lungs are clear, normal rate and effort. Heart is regular, no murmur gallop or rub. Abdomen is soft, non distended. Extremities are free of edema. Good bilateral peripheral pulses, dorsalis pedis. He was a large great toe ulcer in the bottom of the left great toe. He also some skin tenting and possible enlargement of the ulceration over the lateral and top aspect of the toe. Objective Imaging Multiple studies:: Radiologist's impression: LE CT: 1. Ulceration involving plantar and medial aspect of distal left great toe with significant cellulitis involving forefoot soft tissue. No discrete drainable abscess collection is seen. No enhancing soft tissue mass. No abnormal soft tissue calcifications. 2. Left foot joint osteoarthritis. No fracture or dislocation. No CT evidence of osteomyelitis is seen. No suspicious intraosseous lesion. CXR: Peribronchial cuffing, typically indicating infectious or inflammatory bronchitis. Labs 08/28/24 04:40 08/28/24 04:40 Labs: Laboratory Results - last 24 hr 08/27/24 08/27/24 08/27/24 05:50 05:50 05:50 WBC RBC Hgb Hct MCV MCH MCHC RDW Plt Count Neut % (Auto) Lymph % (Auto) [place] % (Auto) Eos % (Auto) Baso % (Auto) Neut # (Auto) Lymph # (Auto) [place] # (Auto) Eos # (Auto) Baso # (Auto) Sodium 134 L 135 L Potassium 3.9 3.8 Chloride 104 Carbon Dioxide 21 L BUN 15 Creatinine 0.45 L Estimated GFR > 60 BUN/Creatinine Ratio 33.3 H Glucose 274 H D Calcium Nasal Screen MRSA (PCR) Vancomycin Trough 08/27/24 08/27/24 08/27/24 05:50 19:37 22:30 WBC RBC Hgb Hct MCV MCH MCHC RDW Plt Count Neut % (Auto) Lymph % (Auto) [place] % (Auto) Eos % (Auto) Baso % (Auto) Neut # (Auto) Lymph # (Auto) [place] # (Auto) Eos # (Auto) Baso # (Auto) Sodium Potassium Chloride Carbon Dioxide BUN Creatinine Estimated GFR BUN/Creatinine Ratio Glucose 273 H Calcium 8.1 L Nasal Screen MRSA (PCR) Not detected Vancomycin Trough 8.7 L 08/28/24 04:40 WBC 8.4 RBC 4.64 Hgb 13.6 Hct 40.6 L MCV 87.6 MCH 29.4 MCHC 33.6 RDW 13.0 Plt Count 281 Neut % (Auto) 63.4 Lymph % (Auto) 26.3 [place] % (Auto) 9.3 Eos % (Auto) 0.6 L Baso % (Auto) 0.4 Neut # (Auto) 5300 Lymph # (Auto) 2200 [place] # (Auto) 800 Eos # (Auto) 100 Baso # (Auto) 0 Sodium 136 L Potassium 3.8 Chloride 107 Carbon Dioxide 23 BUN 15 Creatinine 0.42 L Estimated GFR > 60 BUN/Creatinine Ratio 35.7 H Glucose 264 H Calcium 8.4 Nasal Screen MRSA (PCR) Vancomycin Trough [facility] Medical History Microalbuminuria Tobacco dependence Poor compliance with medication Normocytic anemia Diabetes type 2, uncontrolled Diabetic foot ulcer Social History household members: none Smoking Status: Current every day smoker alcohol intake: former substance use type: does not use Assessment & Plan Assessment & Plan narrative: 1. Diabetic foot ulcer and cellulitis to the left great toe. Wound culture with pansentitice E coli. Present on admission and active. -Continue Zosyn/vanc. CT negative for osteo. MRSA screen negative. 2. Uncontrolled diabetes Type 2, present on admission and active. Overall BGs are improved and down to the 200s - 300s. Continue Lantus 20 units daily /SSI/CC diet/metformin. 3. Tobacco dependence , present on admission and active. Nicotine patch as needed 4. Metabolic acidosis , present on admission and active. Improved w/hydration and improved glycemic control. 5. History of opioid dependence , present on admission and active. He recently weaned himself off Suboxone. Oxycodone is available as needed. PLAN: -continue antibiotics. WANG glover. -wound care On Thursday. He may need some removal of skin above the ulcer to see with the extent of the ulceration is. -continue current DM medications. ARLETTE: 08/30. Code status Full Prophylaxis Lovenox Time-Based Coding :: [TOTAL MINUTES] spent with patient and on the chart (including review of chart, obtaining history, exam, reviewing outside data, placing orders, documenting exam and treatment plan, and counseling patient) on [DATE]. Quality VTE Deep Vein Thrombosis/Pulmonary Embolism Present on Admission: No
[2024-08-28 08:00] VITALS: BP 117/77; PULSE 83; RESP 16; TEMP 36.2; O2SAT 95
[2024-08-28] MEDS: INSULIN LISPRO 100 UNIT/ML 3ML VIAL SUBCUT ×7 (08:11→21:43)
[2024-08-28] MEDS: INSULIN GLARGINE 100 UNIT/ML 3ML PEN 20 UNIT SUBCUT (08:13)
[2024-08-28] MEDS: ENOXAPARIN 40 MG/0.4 ML SYRINGE SUBCUT (08:14)
--- NOTE | 2024-08-28 10:44 | CM.DPNOTE ---
DCP Note CIRCULATOR reviewed EMR per chart, pt's diabetic foot ulcer is improving on IV abx since admission. Per RN, pt mobilizing indep in room, no need for PT eval. per provider in morning rounds, another few days on IV abx and then dc home on PO abx. CM team will alert TCM at dc. P: anticipate return home when medically stable. no CM needs at this time. will continue to monitor for evolving DCP needs. PARAM Goldstein
[2024-08-28] MEDS: cefTRIAXone 2,000 MG in SODIUM CHLORIDE 0.9% 100 ML 200 MG IV (11:44)
[2024-08-28] MEDS: OXYCODONE/ACETAMINOPHEN 5/325 TABLET 2 TAB PO ×3 (13:21→22:38)
[2024-08-28 15:00] VITALS: BP 122/77; PULSE 65; RESP 16; TEMP 36.5; O2SAT 94
[2024-08-28] MEDS: INSULIN GLARGINE 100 UNIT/ML 3ML PEN 10 UNIT SUBCUT (16:40)
[2024-08-28 20:00] VITALS: BP 107/73; PULSE 93; RESP 24; TEMP 36.8; O2SAT 91
[2024-08-28] MEDS: ZOLPIDEM 5 MG TABLET PO (22:39)
--- NOTE | 2024-08-29 01:56 | PC.NURSE ---
Patient consistently not wanting to use call light and causing his bed alarm to go off. I explained to patient that it is for the their safety and that he just needs to call us when he needs to get up or when he needs something so we can make sure everything is okay. - patient getting up and setting off bed alarm because he didn't want to bother anyone by using his call light even after being told that it is no problem and it is important to just call us when he needs something. - patient attempted to unplug his bed in hopes of turning off his bed alarm - patient turned off his bed alarm himself and was walking around with an open wound on his toe and his wound was draining. I am unsure if it was wrapped at the beginning of the shift or not. Patient playing music loudly and can be heard at [facility] [place]. He said he cant have his door closed because he gets claustrophobic. I told him that there are people sleeping and we need to keep the volume down. He said okay but as i was walking away down the [address] way he yelled, it is [place], its never too loud. Patient made comments that I need to have more fun in my job and not be so serious. When patient finally decided to use his call light when he needed to go to the bathroom(Approx 1:20AM), he pulled back his blankets to get up and there was a pack of cigarettes under his leg. I told him that he cannot smoke in here. He said, I wasn't smoking or anything because i know that it would set off the smoke alarms. I just found them in my stuff on the floor because i forgot that i had them. I said, There are also patients in the hospital that are using oxygen and it could cause an explosion. At that point he got agitated and said but I wasn't smoking them!. I said, I was not saying that you were. I was just trying to explain why you cannot smoke in here. While he was in the bathroom i notified the nurse and she locked them in the closet. When patient finished in the bathroom i told him that the nurse locked up his cigarettes for safety and that he can get them back when he leaves the hospital. Patient was agitated and accused me of taking his stuff while he was in the bathroom. I told him, I did not take them, the nurse locked them up and he will get them back when he leaves the hospital. Hospital policy says for safety reasons patients cannot have cigarettes. Patent was still unhappy but said that he understood. I told nurse in the hallway that i did not see a probate clerk and, to avoid further agitation from me, if she could ask him if he has a probate clerk so that she can lock it up. I notified coordinator/head nurse HOLLIE Sousa.
[2024-08-29 02:00] VITALS: BP 108/74; PULSE 91; RESP 24; TEMP 36.6; O2SAT 94
[2024-08-29] MEDS: OXYCODONE/ACETAMINOPHEN 5/325 TABLET 2 TAB PO ×6 (02:09→23:06)
--- NOTE | 2024-08-29 07:38 | P.PN_ITS ---
Subjective Subjective Interval history: S: He has pain in the toe. No fevers. No fevers. Exam Vital Signs (past 8 hours): - 08/29/24 02:00 Temperature 97.9 F Pulse Rate 91 H Respiratory Rate 24 Blood Pressure 108/74 Pulse Oximetry 94 Oxygen Flow Rate 0 Oxygen Delivery Method Room Air Oxygen Flow Rate 0 Narrative Exam Narrative: NAD, alert and oriented. Fluent speech. Lungs are clear, normal rate and effort. Heart is regular, no murmur gallop or rub. Abdomen is soft, non distended. Extremities are free of edema. Left great toe ulcer. Objective Labs 08/28/24 04:40 08/28/24 04:40 [facility] Medical History Microalbuminuria Tobacco dependence Poor compliance with medication Normocytic anemia Diabetes type 2, uncontrolled Diabetic foot ulcer Social History household members: none Smoking Status: Current every day smoker alcohol intake: former substance use type: does not use Assessment & Plan Assessment & Plan narrative: 1. Diabetic foot ulcer and cellulitis to the left great toe. Wound culture with pansentitice E coli. Present on admission and active. -Continue Zosyn/vanc. CT negative for osteo. MRSA screen negative. 2. Uncontrolled diabetes Type 2, present on admission and active. Overall BGs are improved and down to the 200s - 300s. Continue Lantus 20 units daily /SSI/CC diet/metformin. 3. Tobacco dependence , present on admission and active. Nicotine patch as needed 4. Metabolic acidosis , present on admission and active. Improved w/hydration and improved glycemic control. 5. History of opioid dependence , present on admission and active. He recently weaned himself off Suboxone. Oxycodone is available as needed. PLAN: -Continue antibiotics. -Wound care On Thursday. -continue current DM medications. ARLETTE: 08/30. Code status Full Prophylaxis Lovenox Time-Based Coding :: [TOTAL MINUTES] spent with patient and on the chart (including review of chart, obtaining history, exam, reviewing outside data, placing orders, documenting exam and treatment plan, and counseling patient) on [DATE]. Quality VTE Deep Vein Thrombosis/Pulmonary Embolism Present on Admission: No
[2024-08-29] MEDS: INSULIN LISPRO 100 UNIT/ML 3ML VIAL SUBCUT ×7 (08:47→20:32)
[2024-08-29] MEDS: ENOXAPARIN 40 MG/0.4 ML SYRINGE SUBCUT (08:47)
[2024-08-29] MEDS: NICOTINE 7 MG PATCH TOP (08:48)
[2024-08-29] MEDS: INSULIN GLARGINE 100 UNIT/ML 3ML PEN 30 UNIT SUBCUT (08:49)
--- NOTE | 2024-08-29 10:37 | PC.NURSE ---
Addendum entered by Zohra Johnson R.N. 08/29/24 12:36: Patient tolerated percocet well, he gets easily agitated if things done go his way right away. Patient has no boundaries or filter with what he sais to staff, he can be manipulative other times. He is thankful for the care we have provided him. Original Note: Patients dressing to his left great toe is cdi. He is growing some bacteria in toe ulcer. Patient is up ad sarah, he talks alot and is friendly. Voices some complaints of discomfort, will give patient percocet now. His blood sugar is 235. All insulin given and patient ate 100 of his breakfast.
--- NOTE | 2024-08-29 11:41 | DIET.CONS ---
Addendum entered by Roxanne Burr 08/29/24 14:49: Per unit host and RN, pt has been very hungry, ordering 2-3x protein servings at meals. Added bedtime snack to diet order. Original Note: Dietary Consultation Note Admission Date: 08/26/2024 14:23 Assessment: 64 y M admitted for foot ulcer and cellulitis with uncontrolled DM. Dietitian consulted for DM. Met with pt at bedside who reports feeling very overwhelmed with managing DM. Has previously worked with DM educator around summer of last year, which was very helpful. Reports not liking GI side effects from metformin and not knowing how to inject lantus. Diet recall consists of only milk and juice past 3 weeks, has not been able to prepare meals. Ht: 180.34 cm Wt: 85 kg BMI: 27.3 UBW: 85.275 kg on 10/16/23, 92.6 kg on 06/24/24 (-8% weight loss within 3 months, severe) Last BM: 08/29/24 (08/29/24 06:44) MNA: 14 Chapin Score: 20 Diet: 08/26/24 Dinner Carbohydrate Consistent Diet Diet Modifications: Carbohydrate level: Medium (3 CHO) Bedtime snack: No Reflex DM orders: No Food Texture: Level 7 - Regular Liquid Consistency: Level 0 - Thin Nutrition Percent Meal Consumed 100% 08/28/24 18:00 Percent Meal Consumed 100% 08/28/24 12:38 Percent Meal Consumed 100% 08/28/24 08:54 Percent Meal Consumed 100% 08/27/24 18:00 Percent Meal Consumed 100% 08/27/24 13:19 Percent Meal Consumed 100% 08/27/24 12:34 Labs: RBC 4.64 X10^6/uL (4.5-5.9) 08/28/24 04:40 Hgb 13.6 g/dL (13.5-17.5) 08/28/24 04:40 Hct 40.6 % (41-53) L 08/28/24 04:40 Creatinine 0.42 mg/dL (0.66-1.25) L 08/28/24 04:40 Lactate 0.8 mmol/L (0.7-2.1) 08/26/24 10:55 Nutrition Diagnosis: Altered nutrition related labs values (A1c) r/t endocrine dysfunction and difficulty managing diabetes aeb A1c 13.4% on 06/27/24, pt reports feeling overwhelmed with managing DM, not knowing how to take lantus and difficulty tolerating medications Interventions: -Pt has f/u with DM educator on Thursday -Reinforced educ on macronutrient pairing, consistent meals and brainstormed a few easy meal ideas -Discussed available support Monitoring/Evaluations: BG Electronically Signed by: Roxanne Burr 08/29/24 11:41 Clinical Dietitian [address] [id number]
[2024-08-29 12:00] VITALS: BP 99/75; PULSE 102; RESP 18; TEMP 36.2; O2SAT 96
[2024-08-29] MEDS: cefTRIAXone 2,000 MG in SODIUM CHLORIDE 0.9% 100 ML 200 MG IV (13:30)
--- NOTE | 2024-08-29 15:45 | CM.DPC ---
DCP Cont: Per MD, pt's toe infection might be more severe than initially anticipated and Wound Consult order placed. SW called [facility] and updated on consult orders and they confirm that pt is an established patient at their clinic and Dr. Parra to likely consult bedside today to help determine discharge needs. Plan: SW to follow closely for plan of discharge home with ongoing outpt Wound Clinic and any further identified discharge planning needs. PARAM Faulkner
--- NOTE | 2024-08-29 16:06 | PM.CN ---
History of Present Illness Consult details Date Patient Seen: 08/29/24 Time Patient Seen: 12:40 Chief complaint: Hole in left Big toe, sent from Wound care Narrative: The patient is a 64-year-old male with uncontrolled diabetes and neuropathy who was admitted to the hospital August 26, 2024 with the left diabetic foot infection and ulcer of the left great toe. He denies having any pain or discomfort nor has he had any fever or chills but he has noted a foul odor and some erythema. Imaging studies did not show any evidence for osteomyelitis. The patient has been treated with IV antibiotics. He reports a good appetite and denies having any other recent changes in overall health. He has recently stopped smoking cigarettes. Past history is remarkable for history of diabetic ulcer right great toe with osteomyelitis which was noted to be healed in October 2023. Meds Home Medications and Allergies Home Medications Medication Instructions Recorded Confirmed Type blood-glucose meter (OneTouch #1 ea 10/30/23 08/26/24 Rx Verio Flex Start kit) blood sugar diagnostic (OneTouch #100 ea 11/03/23 08/26/24 Rx Verio test strips) pen needle, diabetic 32 gauge x #100 ea 11/05/23 08/23/24 Rx 5/32 (BD Seda 2nd Gen Pen Needle) lancets 30 gauge (OneTouch #100 ea 12/28/23 08/23/24 Rx UltraSoft 2 Lancet) blood-glucose meter,continuous #1 ea 01/29/24 08/23/24 Rx (Dexcom G7 Emergency Medicine) blood-glucose sensor (Dexcom G7 #1 ea 01/29/24 08/23/24 Rx Sensor device) lisinopril 2.5 mg tablet 2.5 mg PO DAILY #90 tabs 07/07/24 08/23/24 Rx lorazepam 0.5 mg tablet 0.5 mg PO BID PRN anxiety #7 tabs 08/11/24 08/23/24 Rx albuterol sulfate 90 mcg/actuation 2 puff inhalation Q4-6H PRN 08/15/24 08/23/24 Rx aerosol inhaler shortness of breath or wheezing #8.5 grams hydroxyzine HCl 50 mg tablet 50 mg PO QID PRN anxiety #30 tabs 08/15/24 08/23/24 Rx bupropion HCl 150 mg tablet,12 hr 150 mg PO BID 08/23/24 08/23/24 History sustained-release colchicine 0.6 mg tablet 0.6 mg PO DAILY #30 tabs 08/23/24 08/23/24 Rx fluticasone propionate 115 2 puff inhalation BID #12 grams 08/23/24 08/23/24 Rx mcg-salmeterol 21 mcg/actuation HFA inhaler (Advair HFA) hydrocodone 5 mg-acetaminophen 325 1 tab PO BEDTIME PRN pain #10 tabs 08/23/24 08/23/24 Rx mg tablet insulin glargine 100 unit/mL (3 10 unit (0.1 mL) SUBCUT QPM #15 mL 08/23/24 08/23/24 Rx mL) subcutaneous pen (Lantus Solostar U-100 Insulin) meloxicam 15 mg tablet 15 mg PO DAILY #30 tabs 08/23/24 08/26/24 Rx metformin 500 mg tablet,extended 1,000 mg (2 x 500 mg) PO BID 08/23/24 08/26/24 Rx release 24 hr diabetes #360 tabs rosuvastatin 20 mg tablet (Crestor) 20 mg PO DAILY #90 tabs 08/23/24 08/26/24 Rx sulfamethoxazole 800 1 tab PO BID 10 days #20 tabs 08/23/24 08/26/24 Rx mg-trimethoprim 160 mg tablet (Bactrim DS) Allergies Allergy/AdvReac Type Severity Reaction Status Date / Time No Known Drug Allergies Allergy Verified 08/26/24 09:50 Review of Systems Cardiovascular Comments: No chest pain Respiratory Comments: Shortness of breath with exertion Neurologic Comments: Decreased sensation both feet Exam Vital Signs (past 8 hours): - 08/29/24 12:00 Temperature 97.1 F L Pulse Rate 102 H Respiratory Rate 18 Blood Pressure 99/75 Pulse Oximetry 96 Oxygen Flow Rate 0 Oxygen Delivery Method Room Air Oxygen Flow Rate 0 Const Other: Well-developed well-nourished male who is alert and oriented, no apparent distress Resp Other: Unlabored Skin Other: Resolving erythema left great toe, ulcer left great toe with fat layer exposed Neuro Other: Decreased lower extremity sensation Extrem Other: No swelling or tenderness Objective Labs 08/28/24 04:40 08/28/24 04:40 [facility] Medical History Microalbuminuria Tobacco dependence Poor compliance with medication Normocytic anemia Diabetes type 2, uncontrolled Diabetic foot ulcer Social History household members: none Tobacco & Substance Use Smoking Status: Current every day smoker alcohol intake: former substance use type: does not use Assessment & Plan Assessment and plan (1) Diabetic foot ulcer: Qualifiers: Diabetic foot ulcer location: toe Diabetes mellitus type: type 2 Laterality: right Non-pressure ulcer stage: unspecified non-pressure ulcer stage Qualified Code(s): E11.621 - Type 2 diabetes mellitus with foot ulcer; L97.519 - Non-pressure chronic ulcer of other part of right foot with unspecified severity Status: Acute (2) Non-pressure chronic ulcer of other part of left foot with fat layer exposed: Status: Acute (3) Type 2 diabetes mellitus with diabetic polyneuropathy: 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 Recommend starting daily dressing changes with Iodoflex, pressure offloading with postop surgical shoe, protein supplementation, follow up at wound center after discharge for further evaluation and treatment. Time-Based Coding :: [45 MINUTES] spent with patient and on the chart (including review of chart, obtaining history, exam, reviewing outside data, placing orders, documenting exam and treatment plan, and counseling patient) on [08/29/24].
[2024-08-29 17:00] VITALS: BP 117/79; PULSE 91; RESP 16; TEMP 36.6; O2SAT 98
[2024-08-29 20:00] VITALS: BP 115/76; PULSE 91; RESP 18; TEMP 35.7; O2SAT 94
[2024-08-30] MEDS: OXYCODONE/ACETAMINOPHEN 5/325 TABLET 2 TAB PO ×3 (03:05→10:56)
[2024-08-30 08:00] VITALS: BP 118/90; PULSE 84; RESP 18; TEMP 36.4; O2SAT 94
[2024-08-30] MEDS: ENOXAPARIN 40 MG/0.4 ML SYRINGE SUBCUT (09:44)
[2024-08-30] MEDS: INSULIN LISPRO 100 UNIT/ML 3ML VIAL SUBCUT ×4 (09:44→12:08)
[2024-08-30] MEDS: NICOTINE 7 MG PATCH TOP (09:45)
[2024-08-30] MEDS: INSULIN GLARGINE 100 UNIT/ML 3ML PEN 30 UNIT SUBCUT (10:05)
--- NOTE | 2024-08-30 10:17 | PM.DS.1 ---
History of Present Illness History of Present Illness Chief complaint: Hole in left Big toe, sent from Wound care Narrative: From H&P: 64-year-old male history of diabetes, hypertension, tobacco dependence (40 pack year), COPD with recent exacerbation earlier this month remote alcohol dependence, history of opiate dependence with recent Suboxone withdrawal (was on maintenance for 3 years, but weaned off after moving from [place] to this area with no outpatient provider to follow-up with), history of right foot osteomyelitis, who presented to the emergency department with complaints of a foot wound. He was seen in his primary care clinic on the and reported at that time that he had had a ?hole in his left great toe for 2-3 weeks. He had been trying to address it on his own at home. He was taking metformin but not glipizide. He was also on prednisone for his COPD exacerbation. Blood sugars 1 week prior to his visit was 613. His last hemoglobin A1c in June of this year was 13.4%. During his visit with his PCP, he was advised to increase metformin to a 1000 mg twice daily as well as to start Lantus 10 units nightly. He was referred to Wound Care. He was also given Bactrim and advised to follow-up in 1 week. Today, he was sent from Wound Care for further assessment of his foot wound. In the ED, he was afebrile, mildly tachycardic, had normal blood pressure and oxygen saturations. CBC was within normal limits. Chemistry panel revealed a bicarb of 12, BUN 25, creatinine 0.48, glucose of 425. Procalcitonin was 0.79 ketones were 6.7. Blood cultures and wound cultures were taken. CT scan revealed ulceration involving the plantar and medial aspect of the distal left great toe with significant cellulitis involving the forefoot soft tissue. No discrete drainable abscess. The left foot joint revealed osteoarthritis without fracture or dislocation. No osteomyelitis was seen. Chest x-ray revealed peribronchial cuffing typically indicative of infectious or inflammatory bronchitis. Currently, patient reports some tenderness to the left great toe and surrounding tissues. No drainage. He has not had any fevers. He is pleased that his blood sugars are improved here compared to the blood sugar levels he was getting at home. He states he did get a Lantus Solostar pen but did not know how to use it and was unable to give himself insulin. Discharge Providers Provider Date of admission: 08/26/24 14:23 Discharge Date: 08/30/24 Primary care physician: Alen Staley DO Consults: 08/29/24 09:23 Consult to Dietitian, Adult Urgent Comment: Reason For Exam: DM toe ulter Consult to Inpatient Wound Care Nurse Routine Comment: Reason for consultation: DM toe ulcer Has provider been notified: Yes Consult to Wound Care Routine Comment: Consulting Provider: [facility] Discharge provider: Claudio Ivan MD Summary Hospital Course Discharge Diagnosis: 1. Diabetic foot ulcer and cellulitis to the left great toe. Wound culture with pansentitice E coli. Present on admission and active. MRSA screen was negative and vancomycin was stopped. 2. Uncontrolled diabetes Type 2, present on admission and active. 3. Tobacco dependence , present on admission and active. 4. Metabolic acidosis , present on admission and active. 5. History of opioid dependence , present on admission and active. Hospital Course: The patient has a history of diabetes and hypertension as well as tobacco dependence and COPD. He presented with right foot ulcer. The patient was recently found to have an A1c of 13.4%. The patient went to wound care was then sent to the ED. There he was found to be tachycardic and ill. CT scan revealed ulceration of the toe without clear evidence of osteomyelitis. He was started on IV antibiotics and fluid resuscitated. He was started on insulin and did normalize his blood sugars. The patient was given a nicotine patch. He improved rapidly. He was seen by wound care while in the hospital with instructions to follow up with them once he was deemed stable for discharge. On August 30 he was felt to be stable for discharge on Augmentin based on his microbiology. The patient was given a small supply pain medications and also not felt to be a great candidate for insulin. He will be started back on glipizide and asked to see his primary care within the next week. He will make an appointment with wound care on the way out today and we will also follow up with the nutrition consultation to further be educated regarding in his diet and care of his diabetes. It was noted in history and physical, he recently did self wean from Suboxone. He has demonstrated the ability to maintain an A1c of at least 8 in the last half year prior to disengaging from the healthcare system. Status at Discharge Cognitive/behavioral status at discharge: oriented Functional status at discharge: independent ambulation Overall status at discharge: patient is back to baseline Time Spent with Patient Time spent: Greater than 30 minutes Exam Vital Signs (past 8 hours): - 08/30/24 08:00 Temperature 97.5 F L Pulse Rate 84 Respiratory Rate 18 Blood Pressure 118/90 Pulse Oximetry 94 Oxygen Delivery Method Room Air Oxygen Flow Rate 0 Narrative Exam Narrative: NAD, alert and oriented. Fluent speech. Lungs are clear, normal rate and effort. Heart is regular, no murmur gallop or rub. Abdomen is soft, non distended. Extremities are free of edema. Objective ECG Impression: Sinus tachycardia with frequent premature ventricular complexes Low voltage QRS Right bundle branch block NO SIGNIFICANT CHANGE FROM PRIOR TRACING Imaging Multiple studies: : Radiologist's impression: Leg CT: 1. Ulceration involving plantar and medial aspect of distal left great toe with significant cellulitis involving forefoot soft tissue. No discrete drainable abscess collection is seen. No enhancing soft tissue mass. No abnormal soft tissue calcifications. 2. Left foot joint osteoarthritis. No fracture or dislocation. No CT evidence of osteomyelitis is seen. No suspicious intraosseous lesion. CXR: Peribronchial cuffing, typically indicating infectious or inflammatory bronchitis. Foot X-ray: No acute bony abnormality. Stable appearing focal osseous demineralization of the medial aspect of the 5th metatarsal head. Labs 08/28/24 04:40 08/28/24 04:40 [facility] Medical History Microalbuminuria Tobacco dependence Poor compliance with medication Normocytic anemia Diabetes type 2, uncontrolled Diabetic foot ulcer Social History household members: none Smoking Status: Current every day smoker alcohol intake: former substance use type: does not use Discharge Assessment & Plan Assessment and Plan Assessment: 1. Diabetic foot ulcer and cellulitis to the left great toe. Wound culture with pansentitice E coli. Present on admission and active. MRSA screen was negative and vancomycin was stopped. 2. Uncontrolled diabetes Type 2, present on admission and active. Plan of Treatment: Discharge with Augmentin b.i.d. for proximally 14 days. Wound care within the next several days, PCP to re-evaluate diabetes. He will be on glipizide b.i.d. until that follow up. He was not really felt to be a great candidate for insulin with his compliance issues. Discharge Plan Discharge Plan Patient Disposition: Home Provider Discharge Comment: Stable for discharge. Discharge orders & Medications Prescriptions: New glipizide 5 mg tablet 5 mg PO BID Qty: 30 0RF amoxicillin-pot clavulanate 875-125 mg tablet 1 tab PO BID Qty: 60 0RF oxycodone-acetaminophen [Percocet] 5-325 mg tablet 1 tab PO Q8H PRN (Reason: pain) Qty: 20 0RF Continued (DME) blood-glucose meter [OneTouch Verio Flex Start] Kit See Rx Instructions .Route Qty: 1 0RF Rx Instructions: As directed (DME) OneTouch Verio test strips Strip See Rx Instructions .Route Qty: 100 0RF Rx Instructions: use to test blood sugar 4x daily, before every meal and at bedtime (DME) lancets [Topsy LabsTouch UltraSoft 2 Lancet] 30 gauge misc See Rx Instructions .Route Qty: 100 0RF Rx Instructions: use to test blood glucose 4 times daily (DME) Dexcom G7 Sensor Device See Rx Instructions .Route Qty: 1 0RF Rx Instructions: As directed (DME) Dexcom G7 Training Analyst Misc See Rx Instructions .Route Qty: 1 0RF Rx Instructions: As directed (DME) pen needle, diabetic [BD Seda 2nd Gen Pen Needle] 32 gauge x 5/32 needle See Rx Instructions .Route Qty: 100 0RF Rx Instructions: As directed lisinopril 2.5 mg tablet 2.5 mg PO DAILY Qty: 90 3RF bupropion HCl 150 mg tablet sustained-release 12 hr 150 mg PO BID rosuvastatin [Crestor] 20 mg tablet 20 mg PO DAILY Qty: 90 3RF Rx Instructions: has not picked up yet sulfamethoxazole-trimethoprim [Bactrim DS] 800-160 mg tablet 1 tab PO BID 10 Days Qty: 20 0RF Rx Instructions: has not picked up yet meloxicam 15 mg tablet 15 mg PO DAILY Qty: 30 1RF Rx Instructions: has not picked up yet with food colchicine 0.6 mg tablet 0.6 mg PO DAILY Qty: 30 2RF lorazepam 0.5 mg tablet 0.5 mg PO BID PRN (Reason: anxiety) Qty: 7 0RF hydroxyzine HCl 50 mg tablet 50 mg PO QID PRN (Reason: anxiety) Qty: 30 0RF albuterol sulfate 90 mcg/actuation HFA aerosol inhaler 2 puff INHALATION Q4-6H PRN (Reason: shortness of breath or wheezing) Qty: 8.5 0RF Discontinued metformin 500 mg tablet extended release 24 hr 1,000 mg PO BID Qty: 360 3RF Rx Instructions: has not picked up yet hydrocodone-acetaminophen 5-325 mg tablet 1 tab PO BEDTIME PRN (Reason: pain) Qty: 10 0RF insulin glargine [Lantus Solostar U-100 Insulin] 100 unit/mL (3 mL) insulin pen 10 unit SUBCUT QPM Qty: 15 3RF fluticasone propion-salmeterol [Advair HFA] 115-21 mcg/actuation HFA aerosol inhaler 2 puff inhalation BID Qty: 12 11RF Follow up/Referrals: Alen Staley DO [Primary Care Provider] - Discharge Health Status Multidrug resistant organism: No MDRO Diet/Activity/Treatments Diet: Carb-consistent/Diabetic Activity: As tolerated, keep weight off great toe. Skin/Wound/Dressing Care Report to your healthcare provider any signs of infection, such as:: chills, fever, increased pain, unusual drainage and unusual redness Other wound treatment: Follow up Wound care for appt today. Visit Report/Discharge Packet Instructions: DI for Cellulitis -- Adult, How to Prevent Falls, DI for Prescription Opioid Use Stand Alone Forms: Patient Portal/API Discharge Data Primary Care Provider: Alen Staley VTE Deep Vein Thrombosis/Pulmonary Embolism Present on Admission: No
--- NOTE | 2024-08-30 10:47 | CM.DPC ---
Addendum entered and electronically signed by Sailaja Muñoz MSW 08/30/24 11:10: Changed pharmacy to [facility] here in [place]. Original Note: DCP Cont. Reviewed EMR and team rounds for status updates. Pt has been medically cleared for home d/c. 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 No further CM d/c needs are identified at this time.
--- NOTE | 2024-08-30 11:02 | DIET.PN1 ---
Dietary Progress Note Assessment: F/u with pt before d/c. Discussed realistic meals patient could have instead of just milk and juice and cake with food currently available in his home. Encouraged consistently taking medications as prescribed. Provided appt reminder card for DM educ f/u this Thursday. Ht: 180.34 cm Wt: 85 kg BMI: 27.3 Last BM: 08/29/24 (08/29/24 06:44) MNA: 14 Chapin Score: 21 Diet: 08/29/24 Lunch Carbohydrate Consistent Diet Diet Modifications: Carbohydrate level: Medium (3 CHO) Bedtime snack: Yes Reflex DM orders: No Food Texture: Level 7 - Regular Liquid Consistency: Level 0 - Thin Nutrition Percent Meal Consumed 100% 08/30/24 09:00 Percent Meal Consumed 100% 08/29/24 19:00 Percent Meal Consumed 100% 08/28/24 18:00 Percent Meal Consumed 100% 08/28/24 12:38 Labs: RBC 4.64 X10^6/uL (4.5-5.9) 08/28/24 04:40 Hgb 13.6 g/dL (13.5-17.5) 08/28/24 04:40 Hct 40.6 % (41-53) L 08/28/24 04:40 Creatinine 0.42 mg/dL (0.66-1.25) L 08/28/24 04:40 Lactate 0.8 mmol/L (0.7-2.1) 08/26/24 10:55 Electronically Signed by: Roxanne Burr 08/30/24 11:02 Clinical Dietitian [address] [address]
--- NOTE | 2024-08-30 14:48 | PT-IP ANOTE ---
PT spoke with MD who states pt is d/cd and may d/c PT order.
--- NOTE | 2024-08-30 17:13 | PC.NURSE ---
Discharge: Pt feels ready to d/c to home. He lives in an RV. Pain in control. Has his appointment at the wound care clinic. Rx purchased by Hospital and given to pt. Discharge packet given and reviewed. Questions answered. Pt d/c to home via auto with friend.
== END 2024-08-30 13:00 | disposition home or self-care (01) | DRG 638 ==
LOC: ED 14:16 → AC 14:24
PROVIDERS: Admitting Provider Family Medicine; Emergency Provider Family Medicine; PCP Family Medicine; Referring Provider Family Medicine; Visit Provider Family Medicine
DX: E11.621 Type 2 diabetes mellitus with foot ulcer (principal); E87.20 Acidosis, unspecified; F17.210 Nicotine dependence, cigarettes, uncomplicated; L03.032 Cellulitis of left toe; L97.512 Non-pressure chronic ulcer of other part of right foot with fat layer exposed; E11.42 Type 2 diabetes mellitus with diabetic polyneuropathy; F11.21 Opioid dependence, in remission; B96.20 Unspecified Escherichia coli [E. coli] as the cause of diseases classified elsewhere; R00.0 Tachycardia, unspecified; T38.3X6A Underdosing of insulin and oral hypoglycemic [antidiabetic] drugs, initial encounter; I10 Essential (primary) hypertension; F41.9 Anxiety disorder, unspecified; J44.9 Chronic obstructive pulmonary disease, unspecified; Z87.39 Personal history of other diseases of the musculoskeletal system and connective tissue; Z79.84 Long term (current) use of oral hypoglycemic drugs; Z91.148 Patient's other noncompliance with medication regimen for other reason; L97.509 Non-pressure chronic ulcer of other part of unspecified foot with unspecified severity; L97.522 Non-pressure chronic ulcer of other part of left foot with fat layer exposed; R60.0 Localized edema; L84 Corns and callosities; R23.4 Changes in skin texture
CPT/HCPCS: 36415; 71045; 73630; 73701; 80048; 80053; 80202; 81003; 82009; 82962; 83605; 83690; 84145; 84550; 85007; 85025; 85610; 85651; 85730; 86140; 87040; 87070; 87075; 87077; 87186; 87205; 87797; 93005; 93010; 96361; 96365; 96367; 96372; 99214; 99233; 99284; J0696; J1650; J1815; J2543; Q9967

== ENCOUNTER → 2024-08-26 10:47 | Outpatient (CLI) | payer MEDICARE, OTHER, SELFPAY | PROVIDERS: PCP Family Medicine; Referring Provider Family Medicine; Visit Provider Physician Assistant | DX: E11.621 Type 2 diabetes mellitus with foot ulcer (principal); L97.522 Non-pressure chronic ulcer of other part of left foot with fat layer exposed; L03.119 Cellulitis of unspecified part of limb; R60.0 Localized edema; L84 Corns and callosities; R23.4 Changes in skin texture | CPT/HCPCS: 99212; 99214 ==

== ENCOUNTER 2024-09-01 12:22 | Emergency (ER) | payer MEDICARE, OTHER, SELFPAY ==
[2024-08-26 15:59] VITALS: BMI 27.3
[2024-09-01] VITALS (11 sets, daily range): BP systolic 94–120; BP diastolic 57–79; PULSE 75–110; RESP 20; TEMP 37.1; O2SAT 93–97; BMI 27.2
[2024-09-01 13:30] LABS: Add Manual Diff / Slide Review NO; Basophils Absolute Auto 100 /uL (0-100); Eosinophils Absolute Auto 0 /uL (0-450); Eosinophils Percent Auto 0.4 % (2-4); Hematocrit 41.8 % (41-53); Hemoglobin 14.1 g/dL (13.5-17.5); Lymphocytes Absolute Auto 1600 /uL (1100-4500); Lymphocytes Percent Auto 17.2 % (25-40); Mean Corpuscular HGB Conc 33.7 % (30-36); Mean Corpuscular Hemoglobin 29.6 PG (26-34); Mean Corpuscular Volume 87.9 fL (80-100); Monocytes Absolute Auto 900 /uL (0-900); Monocytes Percent Auto 10.2 % (3-14); Neutrophils Absolute Auto 6500 /uL (1500-7000); Neutrophils Percent Auto 71.2 % (50-75); Platelet Count 411 X10^3/uL (150-400); Red Blood Cell Count 4.76 X10^6/uL (4.5-5.9); Red Cell Distribution Width 12.9 % (11.6-14.8); White Blood Cell Count 9.1 X10^3/uL (4.5-11.0)
[2024-09-01 13:30] LABS: HEMOLYSIS < 15 (0-50)
[2024-09-01 13:35] LABS: Alanine Aminotransferase 78 IU/L (<50); Albumin 4.2 g/dL (3.5-5.0); Albumin Globulin Ratio 1.6 (1.0-2.8); Alkaline Phosphatase 231 U/L (38-126); Aspartate Aminotransferase 65 IU/L (17-59); BUN Creatinine Ratio 48.4 (6-22); Bilirubin Total 0.6 mg/dL (0.2-1.3); Blood Urea Nitrogen 30 mg/dL (9-20); Calcium 10.1 mg/dL (8.4-10.2); Carbon Dioxide 26 mmol/L (22-32); Chloride 101 mmol/L (98-107); Estimated Glomerular Filt Rate > 60 mL/min (>60); Globulin 2.6 g/dL (1.7-4.1); Glucose 433 mg/dL (80-110); Potassium 5.1 mmol/L (3.4-5.1); Sodium 137 mmol/L (137-145); Total Protein 6.8 g/dL (6.3-8.2)
[2024-09-01 13:35] LABS: Lactate (Lactic Acid) 2.3 mmol/L (0.7-2.1)
[2024-09-01 13:53] LABS: Ketones (Beta-Hydroxybutyrate) 0.19 mmol/L (<0.27)
[2024-09-01] MEDS: SODIUM CHLORIDE 0.9% 1,000 ML 1000 ML IV (14:34)
[2024-09-01 14:54] LABS: Reflexed Lactate in 2 Hours Y
[2024-09-01 15:38] LABS: Lactate 2HR (Lactic Acid Rflx) 1.2 mmol/L (0.7-2.1)
--- NOTE | 2024-09-01 17:08 | ED_ITS ---
HPI - General Adult General Chief complaint: Diabetic Problem Stated complaint: can't get insulin under control Time Seen by Provider: 09/01/24 12:45 Source: patient Mode of arrival: Ambulatory History of Present Illness HPI narrative: Patient is a 64-year-old male history of diabetes hypertension tobacco dependence COPD frequent ED visits noncompliance with insulin presenting to day with hyperglycemia. He was admitted to the hospital August 26 through August 30. At the time he had a diabetic foot ulcer which coli. He has a hemoglobin A1c of 13.4. He has a continuous glucose monitor now which reports that his glucose is greater than 500 which is why he is here in the ED. he has a appointments for diabetic education he was given prescriptions however insulin does not come with needles and he does not have a prescription for the needles. So he was worried about his glucose. He was no nausea no vomiting no chest pain no shortness of breath. He overall feeling better than he has previously. He actually looks better than when I have seen him previous Related Data Home Medications Medication Instructions Recorded Confirmed bupropion HCl 150 mg tablet,12 hr 150 mg PO BID 08/23/24 09/01/24 sustained-release Previous Rx's Medication Instructions Recorded blood-glucose meter (OneTouch #1 ea 10/30/23 Verio Flex Start kit) blood sugar diagnostic (OneTouch #100 ea 11/03/23 Verio test strips) pen needle, diabetic 32 gauge x #100 ea 11/05/23 (BD Seda 2nd Gen Pen Needle) lancets 30 gauge (OneTouch #100 ea 12/28/23 UltraSoft 2 Lancet) blood-glucose meter,continuous #1 ea 01/29/24 (Dexcom G7 Senior [employer] Parachutist) blood-glucose sensor (Dexcom G7 #1 ea 01/29/24 Sensor device) lisinopril 2.5 mg tablet 2.5 mg PO DAILY #90 tabs 07/07/24 albuterol sulfate 90 mcg/actuation 2 puff inhalation Q4-6H PRN 08/15/24 aerosol inhaler shortness of breath or wheezing #8.5 grams hydroxyzine HCl 50 mg tablet 50 mg PO QID PRN anxiety #30 tabs 08/15/24 colchicine 0.6 mg tablet 0.6 mg PO DAILY #30 tabs 08/23/24 meloxicam 15 mg tablet 15 mg PO DAILY #30 tabs 08/23/24 rosuvastatin 20 mg tablet (Crestor) 20 mg PO DAILY #90 tabs 08/23/24 amoxicillin 875 mg-potassium 1 tab PO BID #60 tabs 08/30/24 clavulanate 125 mg tablet glipizide 5 mg tablet 5 mg PO BID #30 tabs 08/30/24 lorazepam 0.5 mg tablet 0.5 mg PO BID PRN anxiety #7 tabs 08/30/24 oxycodone-acetaminophen 5 mg-325 1 tab PO Q8H PRN pain #20 tabs 08/30/24 mg tablet (Percocet) Allergies Allergy/AdvReac Type Severity Reaction Status Date / Time No Known Drug Allergies Allergy Verified 08/26/24 09:50 Patient History Medical History Microalbuminuria Tobacco dependence Poor compliance with medication Normocytic anemia Diabetes type 2, uncontrolled Diabetic foot ulcer Social History household members: none alcohol intake: former substance use type: does not use alcohol intake frequency: 0-2 drinks per day Exam Initial Vital Signs Initial Vital Signs: Vital Signs Temperature 98.7 F 09/01/24 12:29 Pulse Rate 110 H 09/01/24 12:29 Respiratory Rate 20 09/01/24 12:29 Blood Pressure 110/76 09/01/24 12:29 Pulse Oximetry 96 09/01/24 12:29 Oxygen Delivery Method Room Air 09/01/24 12:29 GENERAL: Alert 64-year-old male no acute distress. HEENT: Head atraumatic,EOMI, pupils reactive, face symmetric, [moist] mucous membranes CARDIOVASCULAR: Regular rate and rhythm without murmurs, rubs or gallops. RESPIRATORY: Breath sounds equal bilaterally, no wheezes rales or rhonchi. ABDOMEN: Soft, nontender. Normoactive bowel sounds all 4 quadrants. No guarding or rebound. EXTREMITIES: Normal range of motion, no clubbing or edema. Neurovascularly intact NEUROLOGICAL: Alert and oriented x4.Normal gait and speech. SKIN: Warm, dry, no laceration, no petechiae, no rashes or lesions. Course Orders Ordered: ED Orders 09/01/24 12:35 CBC Auto Diff [Complete Blood Count AUTO DIFF] Stat Lactate (Lactic Acid) Stat 09/01/24 12:46 Venous Blood Gas STAT 09/01/24 13:15 CMP [Comprehensive Metabolic Panel] Stat Ketones (Beta-Hydroxybutyrate) Stat Discontinued Medications Sodium Chloride (Normal Saline 0.9%) 1,000 mls @ 1,000 mls/hr IV BOLUS ONE Stop: 09/01/24 13:45 Last Infusion: 09/01/24 16:12 Dose: Infused Documented By: Admin: 09/01/24 14:34 Dose: 1,000 mls/hr Documented By: DEVANTE Insulin Glargine (Insulin Glargine 100 Unit/Ml 3ml Pen) 10 unit SUBCUT NOW ONE Stop: 09/01/24 17:25 Last Admin: 09/01/24 17:31 Dose: 10 unit Documented By: DEVANTE Co-signed By: CAMILA Insulin Human Regular (Insulin Regular 100 Unit/Ml 3 Ml Vial) 3 unit SUBCUT NOW ONE Stop: 09/01/24 17:25 Last Admin: 09/01/24 17:26 Dose: 3 unit Documented By: DEVANTE Co-signed By: CAMILA Vital Signs Vital signs: Vital Signs - 8 hr 09/01/24 12:29 09/01/24 14:23 09/01/24 14:26 Temperature 98.7 F Pulse Rate 110 H 103 H 99 H Respiratory Rate 20 Blood Pressure 110/76 Pulse Oximetry 96 96 96 Oxygen Delivery Method Room Air 09/01/24 14:26 09/01/24 14:30 09/01/24 14:30 Temperature Pulse Rate 89 Respiratory Rate Blood Pressure 116/79 116/76 Pulse Oximetry 97 Oxygen Delivery Method 09/01/24 15:00 09/01/24 15:00 09/01/24 15:30 Temperature Pulse Rate 95 H 79 Respiratory Rate Blood Pressure 111/75 Pulse Oximetry 95 94 Oxygen Delivery Method 09/01/24 15:30 09/01/24 15:42 09/01/24 16:00 Temperature Pulse Rate 96 H Respiratory Rate Blood Pressure 120/66 109/73 Pulse Oximetry 97 Oxygen Delivery Method 09/01/24 16:11 09/01/24 16:30 09/01/24 16:30 Temperature Pulse Rate 94 H 75 Respiratory Rate Blood Pressure 94/58 L Pulse Oximetry 96 93 Oxygen Delivery Method 09/01/24 17:00 09/01/24 17:00 Temperature Pulse Rate 78 Respiratory Rate Blood Pressure 97/57 L Pulse Oximetry 96 Oxygen Delivery Method Medical Decision Making Lab Data 09/01/24 12:35 09/01/24 13:15 Labs: Lab Results 09/01/24 09/01/24 09/01/24 Range/Units 12:35 13:15 15:17 WBC 9.1 (4.5-11.0) X10^3/uL RBC 4.76 (4.5-5.9) X10^6/uL Hgb 14.1 (13.5-17.5) g/dL Hct 41.8 (41-53) % MCV 87.9 (80-100) fL MCH 29.6 (26-34) PG MCHC 33.7 (30-36) % RDW 12.9 (11.6-14.8) % Plt Count 411 H (150-400) X10^3/uL Neut % (Auto) 71.2 (50-75) % Lymph % (Auto) 17.2 L (25-40) % Banner % (Auto) 10.2 (3-14) % Eos % (Auto) 0.4 L (2-4) % Baso % (Auto) 1.0 (0-2) % Neut # (Auto) 6500 (1061-4225) /uL Lymph # (Auto) 1600 (5674-2779) /uL Banner # (Auto) 900 (0-900) /uL Eos # (Auto) 0 (0-450) /uL Baso # (Auto) 100 (0-100) /uL Sodium 137 (137-145) mmol/L Potassium 5.1 D (3.4-5.1) mmol/L Chloride 101 (98-107) mmol/L Carbon Dioxide 26 (22-32) mmol/L BUN 30 H (9-20) mg/dL Creatinine 0.62 L (0.66-1.25) mg/dL Estimated GFR > 60 (>60) mL/min BUN/Creatinine Ratio 48.4 H (6-22) Glucose 433 H D (80-110) mg/dL Lactate 2.3 H 1.2 (0.7-2.1) mmol/L Calcium 10.1 (8.4-10.2) mg/dL Total Bilirubin 0.6 (0.2-1.3) mg/dL AST 65 H (17-59) IU/L ALT 78 H (<50) IU/L Alkaline Phosphatase 231 H (38-126) U/L Total Protein 6.8 (6.3-8.2) g/dL Albumin 4.2 (3.5-5.0) g/dL Globulin 2.6 (1.7-4.1) g/dL Albumin/Globulin Ratio 1.6 (1.0-2.8) Ketones 0.19 (<0.27) mmol/L Point of Care Testing Glucose POC 272 Urine Dip Bedside Urine Glucose 1000 mg/dl Bedside Urine Bilirubin - Negative Bedside Urine Ketone - Negative Urine Specific Harold 1.015 Bedside Urine Occult Blood - Negative Bedside Urine pH 6.0 Bedside Urine Protein - Negative Bedside Urine Urobilinogen - Negative Bedside Urine Nitrite - Negative Bedside Urine Leukocytes - Negative Esterase Point of care testing: Point of Care Testing Glucose POC 272 Urine Dip Bedside Urine Glucose 1000 mg/dl Bedside Urine Bilirubin - Negative Bedside Urine Ketone - Negative Urine Specific Harold 1.015 Bedside Urine Occult Blood - Negative Bedside Urine pH 6.0 Bedside Urine Protein - Negative Bedside Urine Urobilinogen - Negative Bedside Urine Nitrite - Negative Bedside Urine Leukocytes - Negative Esterase MDM Narrative Medical decision making narrative: Patient is 64-year-old male with diabetes recently admitted with a diabetic toe infection. Reports he is taking his antibiotics. Blood work reviewed Glucose 433 Anion gap 10 Lactic acid 2.3-->1.2 AST 65 ALT 78 alk-phos 231 [place] pH 7.5 WBC 9.1 no anemia Repeat POC glucose 272 Patient does not have any evidence of DKA. Overall appears well actually appears better than I have seen him previously. Patient requesting insulin. He was given 3 units subcutaneous insulin along with his Lantus. He was also given some diabetic needles. He has a education and follow-up tomorrow and later this week. Discharge Plan Departure Patient Disposition: Home Clinical Impression: Diabetes Instructions: DI for Diabetes Type 1 -- Adult Activity Restrictions/Additional Instructions: *You have been diagnosed with diabetes *What to do: At this time please go to your appointment tomorrow to make sure you get education and needles we are giving you a handful of needles right now *Continue to take medications as directed *Follow up with your primary care provider in 2-3 days or call [phone] *Return to ER if you should have [or] any new, worsening or concerning symptoms Prescriptions: No Action (DME) blood-glucose meter [OneTouch Verio Flex Start] Kit See Rx Instructions .Route Qty: 1 0RF Rx Instructions: As directed (DME) OneTouch Verio test strips Strip See Rx Instructions .Route Qty: 100 0RF Rx Instructions: use to test blood sugar 4x daily, before every meal and at bedtime (DME) lancets [OneTouch UltraSoft 2 Lancet] 30 gauge misc See Rx Instructions .Route Qty: 100 0RF Rx Instructions: use to test blood glucose 4 times daily (DME) Dexcom G7 Sensor Device See Rx Instructions .Route Qty: 1 0RF Rx Instructions: As directed (DME) Dexcom G7 [employer] Parach[employer]ist Misc See Rx Instructions .Route Qty: 1 0RF Rx Instructions: As directed (DME) pen needle, diabetic [BD Seda 2nd Gen Pen Needle] 32 gauge x 5/32 needle See Rx Instructions .Route Qty: 100 0RF Rx Instructions: As directed lisinopril 2.5 mg tablet 2.5 mg PO DAILY Qty: 90 3RF bupropion HCl 150 mg tablet sustained-release 12 hr 150 mg PO BID rosuvastatin [Crestor] 20 mg tablet 20 mg PO DAILY Qty: 90 3RF Rx Instructions: has not picked up yet meloxicam 15 mg tablet 15 mg PO DAILY Qty: 30 1RF Rx Instructions: has not picked up yet with food colchicine 0.6 mg tablet 0.6 mg PO DAILY Qty: 30 2RF glipizide 5 mg tablet 5 mg PO BID Qty: 30 0RF amoxicillin-pot clavulanate 875-125 mg tablet 1 tab PO BID Qty: 60 0RF lorazepam 0.5 mg tablet 0.5 mg PO BID PRN (Reason: anxiety) Qty: 7 0RF oxycodone-acetaminophen [Percocet] 5-325 mg tablet 1 tab PO Q8H PRN (Reason: pain) Qty: 20 0RF hydroxyzine HCl 50 mg tablet 50 mg PO QID PRN (Reason: anxiety) Qty: 30 0RF albuterol sulfate 90 mcg/actuation HFA aerosol inhaler 2 puff INHALATION Q4-6H PRN (Reason: shortness of breath or wheezing) Qty: 8.5 0RF Referrals: Alen Staley DO [Primary Care Provider] - Stand Alone Forms: Patient Portal/API/Survey
[2024-09-01] MEDS: INSULIN REGULAR 100 UNIT/ML 3 ML VIAL SUBCUT (17:26)
[2024-09-01] MEDS: INSULIN GLARGINE 100 UNIT/ML 3ML PEN 10 UNIT SUBCUT (17:31)
== END 2024-09-01 17:44 | disposition home or self-care (01) ==
PROVIDERS: Emergency Provider Emergency Medicine; PCP Family Medicine
DX: E10.65 Type 1 diabetes mellitus with hyperglycemia (principal); Z79.4 Long term (current) use of insulin
CPT/HCPCS: 36415; 80053; 81003; 82009; 82962; 83605; 85025; 96360; 96361; 96372; 99284

== ENCOUNTER → 2024-09-02 10:49 | Outpatient (CLI) | payer MEDICARE, OTHER, SELFPAY ==
[2024-08-26 15:59] VITALS: BMI 27.3
== END ==
PROVIDERS: PCP Family Medicine; Referring Provider Family Medicine; Visit Provider Physician Assistant
DX: E11.621 Type 2 diabetes mellitus with foot ulcer (principal); L97.525 Non-pressure chronic ulcer of other part of left foot with muscle involvement without evidence of necrosis; L84 Corns and callosities; R60.0 Localized edema; M79.672 Pain in left foot; L08.89 Other specified local infections of the skin and subcutaneous tissue; Z79.2 Long term (current) use of antibiotics; E11.42 Type 2 diabetes mellitus with diabetic polyneuropathy; R80.9 Proteinuria, unspecified; Z79.4 Long term (current) use of insulin; Z71.3 Dietary counseling and surveillance
CPT/HCPCS: 11043; 99214; G0108

== ENCOUNTER → 2024-09-02 14:45 | Outpatient (CLI) | payer MEDICARE, OTHER, SELFPAY ==
[2024-08-26 15:59] VITALS: BMI 27.3
--- NOTE | 2024-09-02 15:12 | DIAB.FU ---
Follow-up Diabetes Education Assessment Name: Spenser Brand Date: 09/02/24 Time: 3-4p Dx: Type II Diabetes Spenser presents for follow-up DM. Since last visit has been hospitalized for foot ulcer and cellulitis of the left great toe. States he needs education on how to inject insulin. Has Lantus and Metformin from previous rx, none on file. RD spoke with Aileen Martínez regarding insulin dosing. RD messaged PCP workgroup regarding rx for insulin pen needles, Lantus and Metformin. Reports some GI upset with previous Metformin trial x 2 days. Encouraged him to retry with low dose and continue x 2 weeks if possible. He agreed. Endorses motivation to manage his Dm now that it is impacting his wound, eye sight, and fatigue. Reports he has been living on milk and juice since our last visit. Endorses some feelings of depression the last few weeks. Father passed 7 months ago. Weaned himself off Suboxone per report. Limited food access at home, but does have proteins in fridge (ham and chicken). Needs nutrition education review as well. Sometimes eating 0-1x per day. Anthropometrics: Ht: 5'10 Wt: 189# 09/01/24 206.5# 07/2024 UBW: 190# reported Self-Monitoring Blood Glucose: Wearing G7 from PCP office. Unclear if rx has been sent to DME. RD messaged PCP workgroup regarding this. BG were >400mg/dl and undetectable by CGM in visit today. After insulin education and self administration, BG were down in 300s. Diabetes Medications: 500mg Metformin AM--- not taking 1000mg Metformin PM--- not taking 5mg Glipizide--- d/c 20u Glargine Pertinent Labs: HGA1c: 10.9% 09/2023 11.1% 09/2023 11.4% 10/2023 8.2% 01/2024 13.4% 06/2024 Past Medical History: (Last Updated 10/31/23 @ 08:57 by Thea Botello [facility]) Diabetes type 2, uncontrolled Diabetic foot ulcer Normocytic anemia Poor compliance with medication Intervention: This participant was very receptive. Provided appropriate educational handouts. Discussed the following topics: Critical level of managing his DM Insulin education and self administration [employer] Meal plans based on his food access and preferences Importance of avoiding simple sugars s/s and treating lows D/c of Glipizide and restarting Metformin and Lantus Metformin SE and ways to reduce Depression and impact on managing his health Created SMART goals for patient self-care and success. Goals: Find glucose meter- met Check FBG daily - not met If not eating, reduce juice to 8-16oz TID at this time- not met Take glipizide- d/c Slowly titrated Metformin up to rx dose- not met Eat with Metformin - continue Try Metformin x 2-3 weeks- new Take 20u Lantus HS- new Avoid juice- new Drink water- new Keep milk to 8oz in a sitting- new Eat BID- new Follow-up: [facility]ORES RIVERA follow-up in 1 week. Called pt at the end of day and BG was 250mg/dl. Iman Duffy, DELORES, CDCES Certified Diabetes Care and [employer] P: [phone] Thank you for this referral
== END ==
PROVIDERS: PCP Family Medicine; Referring Provider Family Medicine
DX: E11.42 Type 2 diabetes mellitus with diabetic polyneuropathy (principal); R80.9 Proteinuria, unspecified; Z79.4 Long term (current) use of insulin; Z71.3 Dietary counseling and surveillance
CPT/HCPCS: G0108

== ENCOUNTER → 2024-09-06 08:04 | Outpatient (CLI) | payer MEDICARE, OTHER, SELFPAY ==
[2024-08-26 15:59] VITALS: BMI 27.3
--- NOTE | 2024-09-09 10:44 | DIAB.FU ---
Follow-up Diabetes Education Assessment Name: Spenser Brand Date: 09/06/24 Time: 830-9a Dx: Type II Diabetes Spenser presents for follow-up DM. Needing guidance on insulin titration. Taking DM medications. Has SMBG meter but does not have all supplies and has questions on use. BG are improving though still very elevated. Avoiding most CHO right now. Anthropometrics: Ht: 5'10 Wt: 189# 09/01/24 206.5# 07/2024 UBW: 190# reported Self-Monitoring Blood Glucose: Wearing G7 from PCP office. PCP office troubleshooting CGM rx. appeals analyst helping with this process. [facility] likely best route for rx. TIR: 95% very high 5% high av mg/dl std dev: 52mg/dl variance: 15.3% Diabetes Medications: 500mg Metformin AM--- not taking 1000mg Metformin PM--- not taking 25u Glargine Pertinent Labs: HGA1c: 10.9% 09/2023 11.1% 09/2023 11.4% 10/2023 8.2% 01/2024 13.4% 06/2024 Past Medical History: (Last Updated 10/31/23 @ 08:[address] [facility]) Diabetes type 2, uncontrolled Diabetic foot ulcer Normocytic anemia Poor compliance with medication Intervention: This participant was very receptive. Provided appropriate educational handouts. Discussed the following topics: How to change CGM CGM rx troubleshooting Insulin titration schedule: increase by 20% tomorrow and then 3u Thursday prn Importance of having a meter along with CGM Created SMART goals for patient self-care and success. Goals: Try Metformin x 2-3 weeks- not met Take 20u Lantus HS- met Avoid juice- met Drink water- met Keep milk to 8oz in a sitting- not discussed today Eat BID- met Increase long acting insulin to 30u tomorrow- new Increase by 3u by Thursday if FBG >200mg/dl- new Bring meter next visit- new Follow-up: DELORES RIVERA follow-up in 1 week. Iman Duffy, DELORES, MIGUEL Certified Diabetes Care and Hack Saw Operator P: [phone] Thank you for this referral
== END ==
PROVIDERS: PCP Family Medicine; Referring Provider Family Medicine
DX: E11.42 Type 2 diabetes mellitus with diabetic polyneuropathy (principal); Z79.4 Long term (current) use of insulin; Z71.3 Dietary counseling and surveillance; R80.9 Proteinuria, unspecified
CPT/HCPCS: G0108

== ENCOUNTER → 2024-09-06 10:44 | Outpatient (CLI) | payer MEDICARE, OTHER, SELFPAY ==
[2024-08-26 15:59] VITALS: BMI 27.3
== END ==
PROVIDERS: PCP Family Medicine; Referring Provider Family Medicine; Visit Provider Physician Assistant
DX: E11.621 Type 2 diabetes mellitus with foot ulcer (principal); L97.525 Non-pressure chronic ulcer of other part of left foot with muscle involvement without evidence of necrosis; L97.522 Non-pressure chronic ulcer of other part of left foot with fat layer exposed; L84 Corns and callosities; R60.0 Localized edema
CPT/HCPCS: 99213

== ENCOUNTER → 2024-09-09 09:49 | Outpatient (CLI) | payer MEDICARE, OTHER, SELFPAY ==
[2024-08-26 15:59] VITALS: BMI 27.3
--- NOTE | 2024-09-09 | OV.WND_ITS ---
PROGRESS NOTE DETAILS PATIENT NAME: BRENDA LEBLANC PATIENT NUMBER: [id number] CLINICIAN: DOUG PATINO RN PATIENT DATE OF : 1960 PHYSICIAN / HELIX COIL WINDER: SELVIN MELGOZA PA-C PATIENT SUBJECTIVE CHIEF COMPLAINT THIS INFORMATION WAS OBTAINED FROM THE PATIENT. LEFT FOOT GENERAL NOTES DIABETIC FOOT ULCERS, LEFT HALLUX. ALLERGIES NO KNOWN DRUG ALLERGIES HPI THIS INFORMATION WAS OBTAINED FROM THE PATIENT. LOCATION: L HALLUX DURATION: 08/05/24 CONTEXT: DIABETIC PATIENT WITH HISTORY OF UNCONTROLLED DIABETES AND NEUROPATHY IS HERE FOR FOLLOW UP ON DIABETIC ULCER TO LEFT HALLUX. HE WAS RECENTLY DISCHARGED AFTER HOSPITALIZATION FOR HYPERGLYCEMIA. WHILE HOSPITALIZED HE HAD CT THAT SHOWED NO SIGN OF OSTEOMYELITIS. HE HAD CULTURE SHOWING E-COLI AND CORYNEBACTERIUM AND WAS TREATED WITH IV ANTIBIOTICS IN THE HOSPITAL AND DISCHARGED ON AUGMENTIN. ON TODAY'S VISIT THE TOE SHOWS IMPROVEMENT AND THERE IS NO SIGN OF INFECTION. HE DENIES FEVER OR CHILLS. LABS 09/01/24: WBC 9.1, HGB 14.1, HCT 41.8, NA 137, POTASSIUM 5.1, CR 0.62, GLUCOSE 433, AST 65, ALT 78, ALK PHOS 231 08/30/24: LEG CT WITH NO EVIDENCE OF OSTEOMYELITIS. ULCERATION OF PLANTAR AND MEDIAL ASPECT OF GREAT TOE WITH CELLULITIS. NO DISCRETE ABSCESS. 08/30/24: FOOT XRAY STABLE APPEARING OSSEOUS DEMINERALIZATION 08/26/24: CULTURE ECOLI AND CORYNEBACTERIUM AMYCOLATUM 08/26/24: CULTURE NO GROWTH 08/26/24: POC GLUCOSE > 500 08/26/24 ABIS L 1.22, R 1.21 06/27/24: A1C 13.4 11/13/23: POC GLUCOSE 216 10/30/23: POC GLUCOSE 186 10/18/23: CULTURE ENTEROBACTER CLOACAE COMPLEX 10/17/23: MRI FISTULOUS TRACT AROUND IP JOINT, OSTEOMYELITIS OF 1ST PROXIMAL AND DISTAL PHALANX 10/16/23: CULTURE ENTEROCOCCUS FAECALIS 10/08/23: CULTURE ENTEROBACTER CLOACAE 10/08/23: WBC 12.0, NA 136, CR 0.48, GFR >60, A1C 10.9, AST 24, ALT 30 BRENDA LEBLANC [id number] 1960 MEDICAL HISTORY THIS INFORMATION WAS OBTAINED FROM THE CHART, PATIENT. PATIENT HAS A MEDICAL HISTORY OF: DIABETES MELLITUS TYPE 2 DIABETIC FOOT ULCER MICROALBUMINURIA NORMOCYTOIC ANEMIA POOR COMPLIANCE WITH MEDICATION TOBACCO DEPENDENCE SURGICAL HISTORY THIS INFORMATION WAS OBTAINED FROM THE PATIENT. OBJECTIVE VITALS HEIGHT/LENGTH: 70 IN (177.8 CM), WEIGHT: 194.9 LBS (88.59 KGS), BMI: 28, TEMPERATURE: 99.30 ?F (37.39 ?C), PULSE: 103 BPM, RESPIRATORY RATE: 16 BREATHS/MIN, BLOOD PRESSURE: 121/57 MMHG, PULSE OXIMETRY: 96 %. GENERAL NOTES GLUCOSE 341 PER PATIENT. PHYSICAL EXAM CONSTITUTIONAL: GENERALIZED WEAKNESS. IN NO APPARENT DISTRESS. GOOD ATTENTION TO HYGIENE AND BODY HABITS. ALERT AND ORIENTED X 3. WELL NOURISHED. VITAL SIGNS REVIEWED AND NOTED. BLOOD PRESSURE NORMAL. PULSE RATE AND RHYTHM REGULAR. AFEBRILE. WEIGHT WNL. WELL DEVELOPED, WELL NOURISHED, AND IN NO ACUTE DISTRESS. ALERT AND ORIENTED X3. AMBULATES AND IS ABLE TO CHANGE POSITION WITHOUT ASSISTANCE. ALERT AND ORIENTED X 3. RESPIRATORY: EVEN RESPIRATIONS WITHOUT USE OF ACCESSORY MUSCLES. NO INTERCOASTAL RETRACTIONS NOTED. EVEN AND NON LABORED RESPIRATION. CARDIOVASCULAR: SEE LOWER EXTREMITY ASSESSMENT WHEN APPLICABLE. THERE IS NO PERIPHERAL EDEMA, CYANOSIS OR PALLOR. EXTREMITIES ARE WARM AND WELL PERFUSED. CAPILLARY REFILL IS LESS THAN 2 SECONDS. INTEGUMENTARY (HAIR, SKIN): SEE WOUND DESCRIPTION. NEUROLOGICAL: DECREASED LOWER EXTREMITY SENSATION. PSYCHIATRIC: ORIENTATION TO TIME, PLACE AND PERSON: NORMAL AFFECT WITH NORMAL THOUGHT PATTERN. MOOD AND AFFECT: NORMAL AFFECT WITH NORMAL THOUGHT PATTERN. WOUND ASSESSMENT(S) WOUND #4 LEFT HALLUX IS AN ACUTE MARTINEZ GRADE 3 DIABETIC ULCER ACQUIRED ON 08/05/2024 AND HAS RECEIVED A STATUS OF NOT HEALED. INITIAL WOUND ENCOUNTER MEASUREMENTS ARE 1.2CM LENGTH X 1.3CM WIDTH X 0.3 CM DEPTH, WITH AN AREA OF 1.56 SQ CM AND A VOLUME OF 0.468 CUBIC CM.INITIAL WOUND ENCOUNTER PREVIOUS MEASUREMENTS FROM 09/06/2024 ARE 1.4CM LENGTH X 1.2CM WIDTH X 0.3CM DEPTH, WITH AN AREA OF 1.68 SQ CM AND A VOLUME OF 0.504 CUBIC CM. MUSCLE AND ADIPOSE ARE EXPOSED. NO TUNNELING HAS BEEN NOTED. NO SINUS TRACT HAS BEEN NOTED. NO UNDERMINING HAS BEEN NOTED. THERE IS A MODERATE AMOUNT OF SEROSANGUINEOUS DRAINAGE NOTED WHICH HAS A MILD ODOR. THE PATIENT REPORTS A WOUND PAIN OF LEVEL 6/10. THE WOUND MARGIN IS UNATTACHED WOUND BED HAS YES, PINK, FIRM, GRANULATION, YES SLOUGH, NO ESCHAR, NO EPITHELIALIZATION. BRENDA LEBLANC R [id number] 1960 THE PERIWOUND SKIN EXHIBITED EDEMA AND CALLUS. THE PERIWOUND SKIN DID NOT EXHIBIT BRAWNY INDURATION, EXCORIATION, INDURATION, CREPITUS, FLUCTUANCE, RASH AND MACERATION. THE PERIWOUND SKIN WAS MOIST. THE PERIWOUND SKIN WAS NOT FRIABLE AND DRY/SCALY. THE TEMPERATURE OF THE PERIWOUND SKIN IS WNL. PERIWOUND SKIN DOES NOT EXHIBIT SIGNS OR SYMPTOMS OF INFECTION. LOCAL PULSE IS PALPABLE. ADDITIONAL INFORMATION OTHER DEVITALIZED TISSUE PRESENT: BIOFILM HERBERTH/VASCULAR COMPLETED?: HERBERTH 08/26/24 RESULTS?: L: 1.22, R:1.21 WOUND #5 LEFT, DISTAL HALLUX IS AN ACUTE MARTINEZ GRADE 3 DIABETIC ULCER ACQUIRED ON 08/27/2024 AND HAS RECEIVED A STATUS OF NOT HEALED. INITIAL WOUND ENCOUNTER MEASUREMENTS ARE 0.2CM LENGTH X 0.3CM WIDTH X 0.1 CM DEPTH, WITH AN AREA OF 0.06 SQ CM AND A VOLUME OF 0.006 CUBIC CM.INITIAL WOUND ENCOUNTER PREVIOUS MEASUREMENTS FROM 09/06/2024 ARE 0.5CM LENGTH X 0.3CM WIDTH X 0.1CM DEPTH, WITH AN AREA OF 0.15 SQ CM AND A VOLUME OF 0.015 CUBIC CM. ADIPOSE IS EXPOSED. NO TUNNELING HAS BEEN NOTED. NO SINUS TRACT HAS BEEN NOTED. NO UNDERMINING HAS BEEN NOTED. THERE IS A MODERATE AMOUNT OF SEROSANGUINEOUS DRAINAGE NOTED WHICH HAS NO ODOR. THE PATIENT REPORTS A WOUND PAIN OF LEVEL 0/10. THE WOUND MARGIN IS UNATTACHED WOUND BED HAS NO, GRANULATION, YES SLOUGH, NO ESCHAR, NO EPITHELIALIZATION. THE PERIWOUND SKIN EXHIBITED EDEMA AND CALLUS. THE TEMPERATURE OF THE PERIWOUND SKIN IS WNL. LOCAL PULSE IS PALPABLE. ADDITIONAL INFORMATION OTHER DEVITALIZED TISSUE PRESENT: BIOFILM ASSESSMENT ACTIVE PROBLEMS ICD-10 (ENCOUNTER DIAGNOSIS) E11.621 - TYPE 2 DIABETES MELLITUS WITH FOOT ULCER (ENCOUNTER DIAGNOSIS) L97.523 - NON-PRESSURE CHRONIC ULCER OF OTHER PART OF LEFT FOOT WITH NECROSIS OF MUSCLE (ENCOUNTER DIAGNOSIS) Z91.199 - PATIENT'S NONCOMPLIANCE WITH OTHER MEDICAL TREATMENT AND REGIMEN DUE TO UNSPECIFIED REASON (ENCOUNTER DIAGNOSIS) E11.40 - TYPE 2 DIABETES MELLITUS WITH DIABETIC NEUROPATHY, UNSPECIFIED PROCEDURES WOUND #4 WOUND #4 (DIABETIC ULCER) IS LOCATED ON THE LEFT HALLUX. A SKIN/SUBCUTANEOUS TISSUE LEVEL SURGICAL DEBRIDEMENT WITH A TOTAL AREA DEBRIDED OF 1.56 SQ CM. WAS PERFORMED BY SELVIN MELGOZA PA-C. DERMIS, EPIDERMIS AND SUBCUTANEOUS WERE REMOVED ALONG WITH DEVITALIZED TISSUE: BIOFILM, CALLUS, EXUDATE AND SLOUGH. THE FOLLOWING INSTRUMENT(S) WERE USED: CURETTE, FORCEPS AND SCISSORS. NO ANESTHETIC WAS REQUIRED DUE TO LOSS OF SENSATION. A TIME OUT WAS CONDUCTED PRIOR TO THE START OF THE PROCEDURE. A MODERATE AMOUNT OF BLEEDING WAS CONTROLLED WITH PRESSURE. THE PROCEDURE WAS TOLERATED WELL WITH A LOSS OF SENSATION THROUGHOUT AND A LOSS OF SENSATION FOLLOWING THE PROCEDURE. POST DEBRIDEMENT MEASUREMENTS: 1.2CM LENGTH X 1.3CM WIDTH X 0.4CM DEPTH; WITH AN AREA OF 1.56 SQ CM AND A VOLUME OF 0.624 CUBIC CM. ADDITIONAL INFORMATION MUSCLE FASCIA OR BONE REMOVED AND SENT TO PATHOLOGY?: NO BRENDA LEBLANC [id number] 1960 WOUND #5 WOUND #5 (DIABETIC ULCER) IS LOCATED ON THE LEFT, DISTAL HALLUX. A SELECTIVE DEBRIDEMENT WITH A TOTAL AREA DEBRIDED OF 0.06 SQ CM. WAS PERFORMED BY SELVIN MELGOZA PA-C. SUBCUTANEOUS WAS REMOVED ALONG WITH DEVITALIZED TISSUE: BIOFILM, EXUDATE AND SLOUGH. THE FOLLOWING INSTRUMENT(S) WERE USED: CURETTE. NO ANESTHETIC WAS REQUIRED DUE TO LOSS OF SENSATION. A TIME OUT WAS CONDUCTED PRIOR TO THE START OF THE PROCEDURE. A MINIMAL AMOUNT OF BLEEDING WAS CONTROLLED WITH PRESSURE. THE PROCEDURE WAS TOLERATED WELL WITH A PAIN LEVEL OF 0 THROUGHOUT AND A PAIN LEVEL OF 0 FOLLOWING THE PROCEDURE. POST DEBRIDEMENT MEASUREMENTS: 0.2CM LENGTH X 0.3CM WIDTH X 0.2CM DEPTH; WITH AN AREA OF 0.06 SQ CM AND A VOLUME OF 0.012 CUBIC CM. PLAN WOUND ORDERS: WOUND #4 LEFT HALLUX HAND HYGIENE HAND HYGIENE - WASH HANDS BEFORE AND AFTER WOUND CARE. CALL THE WOUND CENTER AT [phone] IF YOU HAVE SIGNS OR SYMPTOMS OF INFECTION, FEVER CHILLS OR SHAKES, INCREASED DRAINAGE, INCREASED ODOR OR UNUSUAL REDNESS. AFTER WOUND CENTER HOURS PLEASE NOTIFY YOUR PCP OR GO TO THE EMERGENCY ROOM. CLEANSER CLEANSE WOUND WITH NORMAL SALINE CLEANSE WOUND WITH HYPOCHLOROUS ACID (VASHE OR SIMILAR) THEN APPLY HYPOCHLOROUS ACID SOAKED 4X4 GAUZE TO WOUND BED FOR 5-10 MINUTES AFTER WOUND ASSESSMENT COMPLETED. MAY SHOWER, LEAVE WOUND DRESSING INTACT. COVER WOUND DRESSING WITH A WATERPROOF BARRIER. KEEP DRESSING DRY. NO BATHS PLEASE. - KEEP WOUND AND DRESSING PROTECTED FROM SHOWER WATER, MAY PURCHASE CAST PROTECTOR FROM LOCAL DRUG STORE. DRESSING ORDERS APPLY DRESSING(S) AND SECURE WITH: - IODOFLEX. FOAM SECURED WITH TAPE. DRESSING CHANGE FREQUENCY LEAVE DRESSING INTACT UNTIL YOUR NEXT WOUND CENTER APPOINTMENT. KEEP DRY. WOUND #5 LEFT, DISTAL HALLUX HAND HYGIENE HAND HYGIENE - WASH HANDS BEFORE AND AFTER WOUND CARE. CALL THE WOUND CENTER AT [phone] IF YOU HAVE SIGNS OR SYMPTOMS OF INFECTION, FEVER CHILLS OR SHAKES, INCREASED DRAINAGE, INCREASED ODOR OR UNUSUAL REDNESS. AFTER WOUND CENTER HOURS PLEASE NOTIFY YOUR PCP OR GO TO THE EMERGENCY ROOM. CLEANSER CLEANSE WOUND WITH NORMAL SALINE CLEANSE WOUND WITH HYPOCHLOROUS ACID (VASHE OR SIMILAR) THEN APPLY HYPOCHLOROUS ACID SOAKED 4X4 GAUZE TO WOUND BED FOR 5-10 MINUTES AFTER WOUND ASSESSMENT COMPLETED. MAY SHOWER, LEAVE WOUND DRESSING INTACT. COVER WOUND DRESSING WITH A WATERPROOF BARRIER. KEEP DRESSING DRY. NO BATHS PLEASE. - KEEP WOUND AND DRESSING PROTECTED FROM SHOWER WATER, MAY PURCHASE CAST PROTECTOR FROM LOCAL DRUG STORE. DRESSING ORDERS APPLY DRESSING(S) AND SECURE WITH: - IODOFLEX. FOAM SECURED WITH TAPE. DRESSING CHANGE FREQUENCY LEAVE DRESSING INTACT UNTIL YOUR NEXT WOUND CENTER APPOINTMENT. KEEP DRY. ADDITIONAL ORDERS: OFF-LOADING / PRESSURE RELIEF USE/WEAR WHEN WALKING: - FOOTBALL DRESSING AND POST OP SHOE. DIETARY TAKE VITAMIN C 1000MG BY MOUTH DAILY. TAKE ZINC 25MG BY MOUTH DAILY. FOLLOW A DIABETIC DIET. INCREASE THE PROTEIN IN YOUR DIET. BRENDA LEBLANC [id number] 1960 FOLLOW-UP APPOINTMENTS RETURN APPOINTMENT 1 WEEK - ONE WEEK. OTHER ORDERS: - CONTINUE ORAL ANTIBIOTICS PRESCRIBED. SCRIBING ATTESTATION I ATTEST, THE NURSE, THAT I SCRIBED THESE ORDERS FOR THE WOUND CARE PROVIDER. PROVIDER REVIEW AND ATTESTATION: REVIEWED AND EVALUATED LABS. REVIEWED HOSPITAL RECORDS. DISCUSSED THE PLAN OF CARE @ BEDSIDE WITH - PATIENT SMOKING CESSATION WAS ENCOURAGED. I AGREE AND ATTEST TO THE ABOVE INFORMATION PROVIDED FROM OTHER LICENSED PROFESSIONALS. PLAN OF CARE: 01. ENSURE/ESTABLISH OPTIMAL BLOOD FLOW : - COMPLETE LOWER EXTREMITY ASSESSMENT STATUS: CONTINUED DATE: 09/02/2024 - PERFORM NON-INVASIVE VASCULAR TESTING (I.E. HERBERTH) AND DOCUMENT FINDINGS. CONSIDER REPEATING WHEN WOUND HEALING <40% AFTER 30 DAYS OF WOUND CARE. STATUS: COMPLETED DATE: 08/26/2024 02. ASSESS FOR/TREAT INFECTION : - EVALUATE FOR SIGNS AND SYMPTOMS OF INFECTION AND DOCUMENT FINDINGS. STATUS: CONTINUED DATE: 09/02/2024 - OBTAIN CULTURE AND SENSITIVITY (CANDS) OR TISSUE CULTURE WHEN INFECTION IS SUSPECTED. (NOTE:) CONSIDER REPEATING WHEN WOUND HEALING <40% AFTER 30 DAYS OF WOUND CARE. STATUS: COMPLETED DATE: 08/26/2024 03. DEBRIDE WEEKLY OR MORE OFTEN PRN : - EVALUATE PATIENT IN CENTER WEEKLY TO ASSESS WOUND BED AND MARGINS FOR NEED FOR DEBRIDEMENT. STATUS: CONTINUED DATE: 09/02/2024 04. OPTIMIZE GLUCOSE CONTROL AND NUTRITION : - COMPLETE A NUTRITION RISK ASSESSMENT. STATUS: COMPLETED DATE: 08/26/2024 - ORDER NUTRITION CONSULT BASED UPON RESULTS OF NUTRITION RISK ASSESSMENT. - DIABETES CONSULT ORDERED, SCHEDULED FOR 09/03/23. STATUS: COMPLETED DATE: 09/02/2024 05. OFFLOADING PLAN : - EVALUATE PLAN FOR OFFLOADING STATUS: CONTINUED DATE: 09/02/2024 - PROVIDE EDUCATION MATERIALS/DISCUSS OFFLOADING STRATEGIES APPROPRIATE. STATUS: CONTINUED DATE: 09/02/2024 06. OPTIMIZE HOST FACTORS: - ASSESS AND REVIEW PATIENT HISTORY FOR WOUND ETIOLOGY, CO-MORBID CONDITIONS, MEDICATION REGIME, AND SMOKING HISTORY. STATUS: CONTINUED DATE: 09/02/2024 07. DRESSING SELECTION : - EVALUATE FOR DRESSING-RELATED FACTORS, SUCH AVAILABILITY, WEAR TIME, ADAPTABILITY AND USE TO BETTER OPTIMIZE WOUND HEALING AND PATIENT COMPLIANCE. STATUS: CONTINUED DATE: 09/02/2024 08. ADVANCED MODALITIES : - EVALUATE FOR APPROPRIATENESS OF HYPERBARIC OXYGEN THERAPY. - WAG 3 STATUS: INITIATED DATE: 09/02/2024 - SET TREATMENT GOALS ACCORDING TO PATIENT AND/OR CAREGIVER?S ABILITY/ COMPLIANCE. STATUS: CONTINUED DATE: 09/02/2024 BRENDA LEBLANC [id number] 1960 09. FALL PREVENTION : - COMPLETE FALL ASSESSMENT. STATUS: COMPLETED DATE: 08/26/2024 10. PAIN MANAGEMENT : - COMPLETE PAIN ASSESSMENT STATUS: COMPLETED DATE: 08/26/2024 11. MEASURABLE GOALS FOR WOUND HEALING AND/OR HYPERBARIC OXYGEN THERAPY : - IMPLEMENT PROTOCOLS TO PROMOTE HEALING AND IMPEDE FURTHER INJURY STATUS: CONTINUED DATE: 09/02/2024 12. DURATION/FREQUENCY OF WOUND CARE VISITS : - 1X WEEKLY FOR 30 DAYS STATUS: CONTINUED DATE: 09/02/2024 * * * PLAN CONTINUE WITH IODOFLEX WITH FOOTBALL DRESSING RECHECK 1 WEEK ELECTRONIC SIGNATURE(S) SIGNED BY: DATE: SELVIN MELGOZA PA-C 09/11/2024 22:04:24 (PT) ENTERED BY: SELVIN MELGOZA PA-C ON 09/11/2024 22:04:07 (PT) BRENDA LEBLANC [id number] 1960
== END ==
PROVIDERS: PCP Family Medicine; Referring Provider Family Medicine; Visit Provider Physician Assistant
DX: E11.621 Type 2 diabetes mellitus with foot ulcer (principal); Z91.199 Patient's noncompliance with other medical treatment and regimen due to unspecified reason; L97.525 Non-pressure chronic ulcer of other part of left foot with muscle involvement without evidence of necrosis; L97.522 Non-pressure chronic ulcer of other part of left foot with fat layer exposed; L84 Corns and callosities; E11.40 Type 2 diabetes mellitus with diabetic neuropathy, unspecified; R60.0 Localized edema
CPT/HCPCS: 11042; 97597; 99213

== ENCOUNTER → 2024-09-13 08:24 | Outpatient (CLI) | payer MEDICARE, OTHER, SELFPAY ==
[2024-08-26 15:59] VITALS: BMI 27.3
--- NOTE | 2024-09-13 08:31 | DIAB.MNTFU ---
Follow-up Diabetes Medical Nutrition Therapy Assessment Name: Spenser Brand Date: 09/13/24 Time: 784-022h Dx: Type II Diabetes Spenser presents for follow-up DM. FBG this morning was 168mg/dl. After three pancakes and jam states BG was >400mg/dl. Self titrated up to 40u basal insulin. Encouraged him to not increase basal unless directed to, and to begin lispro ac. He agreed to this plan. Eating 1-2x per day. Did not start Lispro with meals. Eating protein at most meals, ie meat usually. Sometimes just eating sugar cereal. No veggies or fruit. No vitamin c sources. He is unsure if [facility] has called him about CGM access. Provided him the phone number today. States he has a meter and most supplies, though missing lancets. Anthropometrics: Ht: 5'10 Wt: 189# 09/01/24 206.5# 07/2024 UBW: 190# reported Self-Monitoring Blood Glucose: Wearing G7 but forgot the creping machine operator helper today. States more BG have been <200mg/dl but still going >300mg/dl after eating, often >400mg/dl. Last TIR: 95% very high 5% high av mg/dl std dev: 52mg/dl variance: 15.3% Diabetes Medications: 40u Glargine 5u Lispro ac (not started) Pertinent Labs: HGA1c: 10.9% 09/2023 11.1% 09/2023 11.4% 10/2023 8.2% 01/2024 13.4% 06/2024 Past Medical History: (Last Updated 10/31/23 @ 08:57 by Thea Botello, [facility]) Diabetes type 2, uncontrolled Diabetic foot ulcer Normocytic anemia Poor compliance with medication Nutrition Rx: Carbohydrates: Meal:45g Snack:15-30g Nutrition Diagnosis: - Excessive CHO intake r/t craving cereal aeb pt report - new - Inadequate vitamin c intake r/t increased needs with wound healing and no sources reported aeb diet recall- new Intervention: This participant was very receptive. Provided appropriate educational handouts. Discussed the following topics: CGM access troubleshooting Protein needs for Dm and wound healing Carb portions Discouraged simple CHO foods Vitamin C sources Strategies for affordable vegetables SMBG components: meter, lancing device, lancets, and strips Meal time insulin action and when to take Created SMART goals for patient self-care and success. Goals: Increase long acting insulin to 30u tomorrow- met Increase by 3u by Thursday if FBG >200mg/dl- met Bring meter next visit- not met specialty plant supervisor some non starch canned veggies- new Add 1-2 pieces of fruit per day- new Have protein anytime you eat- new Ask pharmacy for lancets- new Ask pharmacy for lispro- new Do not increase basal insulin at this time- new Follow-up: DELORES RIVERA follow-up in 2 weeks Iman Duffy RDN, MIGUEL Certified Diabetes Care and [employer] P: [phone] Thank you for this referral
== END ==
PROVIDERS: PCP Family Medicine; Referring Provider Family Medicine
DX: E11.65 Type 2 diabetes mellitus with hyperglycemia (principal); Z71.3 Dietary counseling and surveillance; Z79.4 Long term (current) use of insulin
CPT/HCPCS: 97803

== ENCOUNTER → 2024-09-16 09:49 | Outpatient (CLI) | payer MEDICARE, OTHER, SELFPAY ==
[2024-08-26 15:59] VITALS: BMI 27.3
== END ==
PROVIDERS: PCP Family Medicine; Referring Provider Family Medicine; Visit Provider Physician Assistant
DX: E11.621 Type 2 diabetes mellitus with foot ulcer (principal); L97.525 Non-pressure chronic ulcer of other part of left foot with muscle involvement without evidence of necrosis; E11.40 Type 2 diabetes mellitus with diabetic neuropathy, unspecified; R23.4 Changes in skin texture; R60.0 Localized edema; L84 Corns and callosities
CPT/HCPCS: 11042; 99213

== ENCOUNTER → 2024-09-21 15:01 | Outpatient (CLI) | payer MEDICARE, OTHER, SELFPAY ==
[2024-08-26 15:59] VITALS: BMI 27.3
[2024-09-21 16:44] LABS: Hemoglobin A1C% w Est Avg Glu > 14.0 % (4.0-6.0)
== END ==
PROVIDERS: PCP Family Medicine; Referring Provider Family Medicine; Visit Provider Family Medicine
DX: E11.42 Type 2 diabetes mellitus with diabetic polyneuropathy (principal)
CPT/HCPCS: 36415; 83036

== ENCOUNTER → 2024-09-23 09:51 | Outpatient (CLI) | payer MEDICARE, OTHER, SELFPAY ==
[2024-08-26 15:59] VITALS: BMI 27.3
== END ==
PROVIDERS: PCP Family Medicine; Referring Provider Family Medicine; Visit Provider Nurse Practitioner Family
DX: E11.621 Type 2 diabetes mellitus with foot ulcer (principal); L97.525 Non-pressure chronic ulcer of other part of left foot with muscle involvement without evidence of necrosis; R20.8 Other disturbances of skin sensation; R23.4 Changes in skin texture; R60.0 Localized edema; L84 Corns and callosities
CPT/HCPCS: 99213

== ENCOUNTER → 2024-09-29 09:25 | Outpatient (CLI) | payer MEDICARE, OTHER, SELFPAY ==
[2024-08-26 15:59] VITALS: BMI 27.3
--- NOTE | 2024-10-07 17:13 | DIAB.FU ---
Follow-up Diabetes Education Assessment: Personal CGM Placement Name: Spenser Brand Date: 09/29/24 Time: 935-10a Dx: Type II Diabetes Spenser presents for follow-up DM. Received CGM sensors from [facility]. Needs education on placement per report. Also ran out of Lispro. Anthropometrics: Ht: 5'10 Wt: 189# 09/01/24 206.5# 07/2024 UBW: 190# reported Self-Monitoring Blood Glucose: Has not been wearing sensor since was unable to place on his own per report. Brought supplies for education today. Last TIR: 95% very high 5% high av mg/dl std dev: 52mg/dl variance: 15.3% Diabetes Medications: 50u Glargine 5u Lispro ac (not started) Pertinent Labs: HGA1c: 10.9% 09/2023 11.1% 09/2023 11.4% 10/2023 8.2% 01/2024 13.4% 06/2024 Past Medical History: (Last Updated 10/31/23 @ 08:57 by Thea Botello [facility]) Diabetes type 2, uncontrolled Diabetic foot ulcer Normocytic anemia Poor compliance with medication Intervention: This participant was very receptive. Provided appropriate educational handouts. Discussed the following topics: CGM education, precautions, and self placement Encouraged picking up Lispro Created SMART goals for patient self-care and success. 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
== END ==
LOC: DIET 09:26
PROVIDERS: PCP Family Medicine; Referring Provider Family Medicine
DX: E11.42 Type 2 diabetes mellitus with diabetic polyneuropathy (principal); Z71.3 Dietary counseling and surveillance; Z79.4 Long term (current) use of insulin; R80.9 Proteinuria, unspecified
CPT/HCPCS: 95249

== ENCOUNTER → 2024-09-30 10:18 | Outpatient (CLI) | payer MEDICARE, OTHER, SELFPAY ==
[2024-08-26 15:59] VITALS: BMI 27.3
== END ==
LOC: WC 10:20
PROVIDERS: PCP Family Medicine; Referring Provider Family Medicine; Visit Provider Physician Assistant
DX: E11.621 Type 2 diabetes mellitus with foot ulcer (principal); L97.525 Non-pressure chronic ulcer of other part of left foot with muscle involvement without evidence of necrosis; L84 Corns and callosities; R60.0 Localized edema; Z91.199 Patient's noncompliance with other medical treatment and regimen due to unspecified reason
CPT/HCPCS: 11042; 99214

== ENCOUNTER → 2024-10-07 11:15 | Outpatient (CLI) | payer MEDICARE, OTHER, SELFPAY ==
[2024-08-26 15:59] VITALS: BMI 27.3
== END ==
LOC: WC 11:17
PROVIDERS: Visit Provider Physician Assistant
DX: E11.621 Type 2 diabetes mellitus with foot ulcer (principal); E11.40 Type 2 diabetes mellitus with diabetic neuropathy, unspecified; L97.525 Non-pressure chronic ulcer of other part of left foot with muscle involvement without evidence of necrosis; Z91.199 Patient's noncompliance with other medical treatment and regimen due to unspecified reason
CPT/HCPCS: 11042; 99213

== ENCOUNTER → 2024-10-11 10:47 | Outpatient (CLI) | payer MEDICARE, OTHER, SELFPAY ==
[2024-08-26 15:59] VITALS: BMI 27.3
--- NOTE | 2024-10-11 15:35 | DIAB.MNTFU ---
Follow-up Diabetes Medical Nutrition Therapy Assessment Name: Spenser Brand Date: 10/11/24 Time: Dx: Type II Diabetes Spenser presents for follow-up DM. Spenser reports needing review on how to place personal CGM. Continues wound care for LLE. Endorses drinking 1/2-3/4 gallons of milk per day. Meals are often preprepped meals, ie mac and cheese No fruits or veggies Cost is his main barrier to food. Receives SNAP benefits. Receives benefit again on 10/18. Anthropometrics: Ht: 5'10 Wt: 189# 09/01/24 206.5# 07/2024 UBW: 190# reported Self-Monitoring Blood Glucose: Continued excessive hyperglycemia. Has not started meal time insulin. Today TIR: 94% very high 6% high 0% in range av mg/dl std dev: 55mg/dl variance: 16.3% Last TIR: 95% very high 5% high av mg/dl std dev: 52mg/dl variance: 15.3% Diabetes Medications: 50u Glargine 5u Lispro ac (not started) Pertinent Labs: HGA1c: 10.9% 09/2023 11.1% 09/2023 11.4% 10/2023 8.2% 01/2024 13.4% 06/2024 Past Medical History: (Last Updated 10/31/23 @ 08:57 by Thea Botello [facility]) Diabetes type 2, uncontrolled Diabetic foot ulcer Normocytic anemia Poor compliance with medication Nutrition Rx: Carbohydrates: Meal:45g Snack:15-30g Nutrition Diagnosis: - Excessive CHO intake r/t milk intake aeb pt report - new - Inadequate vitamin c intake r/t increased needs with wound healing and no sources reported aeb diet recall- continued Intervention: This participant was very receptive. Provided appropriate educational handouts. Discussed the following topics: CGM education for self placement. He demonstrated capabilities for placement. Encouraged picking up and starting Lispro ac Discussed impact of milk on CHO intake and BG Encouraged more fruit and veggies and protein and water intake Reviewed nutrients needed for healing Created SMART goals for patient self-care and success. Goals: production support supervisor Lispro- continued production support supervisor fruit when able- new production support supervisor canned veggies when able- new Cut milk intake in half per day- new Follow-up: DELORES RIVERA follow-up in 2-3 weeks Iman Duffy RDN, MIGUEL Certified Diabetes Care and Access Analyst P: [phone] Thank you for this referral
== END ==
LOC: DIET 10:48
PROVIDERS: PCP Family Medicine; Referring Provider Family Medicine
DX: E11.65 Type 2 diabetes mellitus with hyperglycemia (principal); Z71.3 Dietary counseling and surveillance; Z79.4 Long term (current) use of insulin
CPT/HCPCS: 97803

== ENCOUNTER → 2024-10-14 09:45 | Outpatient (CLI) | payer MEDICARE, OTHER, SELFPAY ==
[2024-08-26 15:59] VITALS: BMI 27.3
== END ==
LOC: WC 09:47
PROVIDERS: PCP Family Medicine; Referring Provider Family Medicine; Visit Provider Physician Assistant
DX: E11.621 Type 2 diabetes mellitus with foot ulcer (principal); E11.40 Type 2 diabetes mellitus with diabetic neuropathy, unspecified; L97.523 Non-pressure chronic ulcer of other part of left foot with necrosis of muscle; L84 Corns and callosities; F17.200 Nicotine dependence, unspecified, uncomplicated; Z91.199 Patient's noncompliance with other medical treatment and regimen due to unspecified reason
CPT/HCPCS: 11042; 87070; 87186; 87205; 99213

== ENCOUNTER → 2024-10-21 09:43 | Outpatient (CLI) | payer MEDICARE, OTHER, SELFPAY ==
[2024-08-26 15:59] VITALS: BMI 27.3
== END ==
PROVIDERS: Visit Provider Physician Assistant
DX: E11.621 Type 2 diabetes mellitus with foot ulcer (principal); L97.525 Non-pressure chronic ulcer of other part of left foot with muscle involvement without evidence of necrosis; L84 Corns and callosities; R60.0 Localized edema
CPT/HCPCS: 11042; 99213

== ENCOUNTER → 2024-10-28 08:41 | Outpatient (CLI) | payer MEDICARE, OTHER, SELFPAY ==
[2024-08-26 15:59] VITALS: BMI 27.3
== END ==
PROVIDERS: Visit Provider Surgery
DX: E11.621 Type 2 diabetes mellitus with foot ulcer (principal); E11.40 Type 2 diabetes mellitus with diabetic neuropathy, unspecified; L97.525 Non-pressure chronic ulcer of other part of left foot with muscle involvement without evidence of necrosis; L84 Corns and callosities; M86.172 Other acute osteomyelitis, left ankle and foot; Z91.199 Patient's noncompliance with other medical treatment and regimen due to unspecified reason
CPT/HCPCS: 11042; 99213

== ENCOUNTER → 2024-11-03 09:55 | Outpatient (CLI) | payer MEDICARE, OTHER, SELFPAY ==
[2024-08-26 15:59] VITALS: BMI 27.3
== END ==
PROVIDERS: Visit Provider Surgery
DX: E11.621 Type 2 diabetes mellitus with foot ulcer (principal); E11.40 Type 2 diabetes mellitus with diabetic neuropathy, unspecified; L97.525 Non-pressure chronic ulcer of other part of left foot with muscle involvement without evidence of necrosis; L84 Corns and callosities; L98.8 Other specified disorders of the skin and subcutaneous tissue; Z72.0 Tobacco use; Z91.199 Patient's noncompliance with other medical treatment and regimen due to unspecified reason
CPT/HCPCS: 11042

== ENCOUNTER → 2024-11-03 14:47 | Outpatient (CLI) | payer MEDICARE, OTHER, SELFPAY ==
[2024-08-26 15:59] VITALS: BMI 27.3
--- NOTE | 2024-11-03 16:14 | DIAB.MNTFU ---
Follow-up Diabetes Medical Nutrition Therapy Assessment Name: Spenser Brand Date: 11/03/24 Time: 305-345p Dx: Type II Diabetes Spenser presents for follow-up DM. Continues wound care for LLE. Down to a quart up to half gallon of milk per day. Down from last visit. Has not picked up Lispro. States he is not doing well. Increased fatigue. Not sleeping well. Sometimes only 30-60 mins sleep at night x 2 months. Tries to nap during the day. Reports he wonders if this is related to diabetes. Protein intake: chicken, pork chop No fruits or veggies Cost is his main barrier to food. Receives SNAP benefits. States he can hand picker some produce this week. Endorses increased stress, reported r/t limited sleep and moving. Reports he is moving to [facility] assisted living this . States he is unable to upkeep his home and manage his meds or food properly. This RD would agree with his limited ability to manage medication and nutrition. Anthropometrics: Ht: 5'10 Wt: 189# 09/01/24 206.5# 07/2024 UBW: 190# reported Self-Monitoring Blood Glucose: Not wearing a CGM. States he does know how to place the sensor but needs a review of how to place the over patch. Is not currently wearing a CGM sensor. 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 Reports BG check at wound care today was >300mg/dl . States he has had a couple failed sensors. Did not call [employer] for replacements. Today TIR: % very high % high % in range avg: ?mg/dl std dev: mg/dl variance: % Last TIR: 94% very high 6% high 0% in range av mg/dl std dev: 55mg/dl variance: 16.3% Diabetes Medications: 50u Glargine 5u Lispro ac (not started) Pertinent Labs: HGA1c: 10.9% 09/2023 11.1% 09/2023 11.4% 10/2023 8.2% 01/2024 13.4% 06/2024 Past Medical History: (Last Updated 09/19/24 @ 09:47 by Alen Staley DO) Diabetes type 2, uncontrolled Diabetic foot ulcer SWATI (generalized anxiety disorder) Major depression Microalbuminuria Normocytic anemia Poor compliance with medication Tobacco dependence Nutrition Rx: Carbohydrates: Meal:45g Snack:15-30g Nutrition Diagnosis: - Excessive CHO intake r/t milk intake aeb pt report - improved - Inadequate vitamin c intake r/t increased needs with wound healing and no sources reported aeb diet recall- continued Intervention: This participant was very receptive. Provided appropriate educational handouts. Discussed the following topics: Reviewed how to place the CGM over patch Review of replacing failed CGM sensors Wound healing MNT Importance of fruits and veggies and protein Sleep hygiene Importance of picking up and starting Lispro ac BG impact on fatigue Created SMART goals for patient self-care and success. 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
== END ==
DX: E11.9 Type 2 diabetes mellitus without complications (principal); Z71.3 Dietary counseling and surveillance; R53.83 Other fatigue; Z79.4 Long term (current) use of insulin
CPT/HCPCS: 97803

== ENCOUNTER → 2024-11-08 09:18 | Outpatient (CLI) | payer MEDICARE, OTHER, SELFPAY ==
[2024-08-26 15:59] VITALS: BMI 27.3
== END ==
LOC: WC 09:20
PROVIDERS: Visit Provider Surgery
DX: E11.621 Type 2 diabetes mellitus with foot ulcer (principal); E11.40 Type 2 diabetes mellitus with diabetic neuropathy, unspecified; L97.522 Non-pressure chronic ulcer of other part of left foot with fat layer exposed; L84 Corns and callosities; F17.210 Nicotine dependence, cigarettes, uncomplicated
CPT/HCPCS: 11042

== ENCOUNTER → 2024-11-10 09:28 | Outpatient (CLI) | payer MEDICARE, OTHER, SELFPAY ==
[2024-08-26 15:59] VITALS: BMI 27.3
== END ==
LOC: WC 09:34
PROVIDERS: Visit Provider Surgery
DX: E11.621 Type 2 diabetes mellitus with foot ulcer (principal); L97.525 Non-pressure chronic ulcer of other part of left foot with muscle involvement without evidence of necrosis
CPT/HCPCS: 29445

== ENCOUNTER → 2024-11-15 09:55 | Outpatient (CLI) | payer MEDICARE, OTHER, SELFPAY ==
[2024-08-26 15:59] VITALS: BMI 27.3
== END ==
LOC: WC 09:57
PROVIDERS: Visit Provider Surgery
DX: E11.621 Type 2 diabetes mellitus with foot ulcer (principal); E11.40 Type 2 diabetes mellitus with diabetic neuropathy, unspecified; L97.525 Non-pressure chronic ulcer of other part of left foot with muscle involvement without evidence of necrosis; R60.0 Localized edema; F17.210 Nicotine dependence, cigarettes, uncomplicated
CPT/HCPCS: 11042

== ENCOUNTER → 2024-11-22 09:04 | Outpatient (CLI) | payer MEDICARE, MEDICAID, OTHER, SELFPAY ==
[2024-08-26 15:59] VITALS: BMI 27.3
== END ==
PROVIDERS: Visit Provider Surgery
DX: E11.621 Type 2 diabetes mellitus with foot ulcer (principal); E11.40 Type 2 diabetes mellitus with diabetic neuropathy, unspecified; L97.525 Non-pressure chronic ulcer of other part of left foot with muscle involvement without evidence of necrosis
CPT/HCPCS: 11042

== ENCOUNTER → 2024-11-29 09:37 | Outpatient (CLI) | payer MEDICARE, OTHER, SELFPAY ==
[2024-08-26 15:59] VITALS: BMI 27.3
== END ==
LOC: WC 09:39
PROVIDERS: Visit Provider Surgery
DX: E11.621 Type 2 diabetes mellitus with foot ulcer (principal); E11.40 Type 2 diabetes mellitus with diabetic neuropathy, unspecified; L97.525 Non-pressure chronic ulcer of other part of left foot with muscle involvement without evidence of necrosis; L84 Corns and callosities
CPT/HCPCS: 11042; 99213

== ENCOUNTER → 2024-12-05 12:11 | Outpatient (CLI) | payer MEDICARE, MEDICAID, OTHER, SELFPAY ==
[2024-08-26 15:59] VITALS: BMI 27.3
== END ==
PROVIDERS: Visit Provider Surgery
DX: Z86.31 Personal history of diabetic foot ulcer (principal); L84 Corns and callosities
CPT/HCPCS: 99213

== ENCOUNTER → 2024-12-09 12:22 | Outpatient (CLI) | payer MEDICARE, OTHER, SELFPAY ==
[2024-08-26 15:59] VITALS: BMI 27.3
== END ==
PROVIDERS: Visit Provider Nurse Practitioner Family
DX: Z86.31 Personal history of diabetic foot ulcer (principal)
CPT/HCPCS: 99211

== ENCOUNTER → 2024-12-12 09:57 | Outpatient (CLI) | payer MEDICARE, OTHER, SELFPAY ==
[2024-08-26 15:59] VITALS: BMI 27.3
== END ==
LOC: WC 09:59
PROVIDERS: Visit Provider Surgery
DX: Z86.31 Personal history of diabetic foot ulcer (principal)
CPT/HCPCS: 99212; 99213

== ENCOUNTER → 2025-03-08 09:18 | Outpatient (ROUT) | payer MEDICAID, SELFPAY ==
[2024-08-26 15:59] VITALS: BMI 27.3
[2025-03-09 08:55] LABS: Hematocrit 47.6 % (41-53); Hemoglobin 15.9 g/dL (13.5-17.5); Mean Corpuscular HGB Conc 33.5 % (30-36); Mean Corpuscular Hemoglobin 29.4 PG (26-34); Mean Corpuscular Volume 87.8 fL (80-100); Platelet Count 277 X10^3/uL (150-400)
[2025-03-09 09:33] LABS: Hemoglobin A1C% w Est Avg Glu 8.6 % (4.0-6.0)
[2025-03-09 09:37] LABS: Blood Urea Nitrogen 18 mg/dL (9-20); Calcium 9.5 mg/dL (8.4-10.2); Carbon Dioxide 24 mmol/L (22-32); Chloride 105 mmol/L (98-107); Estimated Glomerular Filt Rate > 60 mL/min (>60); Glucose 188 mg/dL (70-99); HEMOLYSIS < 15 (0-50); Magnesium 2.1 mg/dL (1.6-2.3); Potassium 4.3 mmol/L (3.4-5.1); Sodium 140 mmol/L (137-145)
== END ==
PROVIDERS: Visit Provider Registered Nurse
DX: E11.9 Type 2 diabetes mellitus without complications (principal)
CPT/HCPCS: 36415; 80048; 83036; 83735; 85027